=== PATIENT | male | born 1955 | race Caucasian/White ===

== ENCOUNTER 2020-02-11 12:55 | Outpatient (CLI) | payer BC, SELFPAY ==
[2020-02-11 13:08] LABS: Hematocrit 44.3 % (40.0-54.0); Hemoglobin 14.8 g/dL (14.0-18.0); Mean Corpuscular HGB Conc 33.4 g/dL (32.0-36.0); Mean Corpuscular Hemoglobin 32.2 pg (27.0-31.0); Mean Corpuscular Volume 96.5 fL (78.0-102.0); Mean Platelet Volume 10.5 fl (8.7-11.0); Platelet Count Result 215 K/mm3 (150-420); Red Blood Count 4.59 M/mm3 (4.70-6.10); Red Cell Distribution Width 13.5 % (11.6-14.4); White Blood Count 9.6 K/mm3 (4.8-10.8)
[2020-02-11 13:47] LABS: Alanine Aminotransferase 23 U/L (16-63); Albumin Level 3.8 g/dL (3.4-5.0); Alkaline Phosphatase 102 U/L (46-116); Anion Gap 6 mmol/L (8-16); Aspartate Amino Transferase 25 U/L (15-37); Bilirubin,Total 0.4 mg/dL (0.00-1.00); Blood Urea Nitrogen 19 mg/dL (7-18); Calcium 9.1 mg/dL (8.5-10.1); Carbon Dioxide 30 mmol/L (21-32); Chloride 103 mmol/L (98-108); Cholesterol 166 mg/dL (0-200); Estimated Glomerular Filt Rate > 60; Glucose 105 mg/dL (70-99); HDL Direct 62 mg/dL (40-60); LDL Cholesterol Calculated 89 mg/dL (<130); Osmolality Calculated 290 mOsm/kg (285-295); Potassium 3.8 mmol/L (3.5-5.1); Sodium 139 mmol/L (136-145); Total Protein 6.6 g/dL (6.4-8.2); Triglycerides 73 mg/dL (0-150)
== END 2020-02-11 12:56 | disposition home or self-care (01) ==
PROVIDERS: PCP Family Medicine; Visit Provider Family Medicine
DX: I10 Essential (primary) hypertension (principal)
CPT/HCPCS: 36415; 80053; 80061; 85027

== ENCOUNTER 2020-03-07 01:00 | Outpatient (CLI) | payer BC, SELFPAY ==
[2020-03-07 18:13] LABS: SARS-CoV-2 RNA PCR Negative
== END 2020-03-07 01:01 | disposition home or self-care (01) ==
LOC: ANHCOVIDDT 01:01
PROVIDERS: PCP Family Medicine; Visit Provider Surgery
DX: Z01.812 Encounter for preprocedural laboratory examination (principal); Z20.828 Contact with and (suspected) exposure to other viral communicable diseases
CPT/HCPCS: 87635; C9803; U0003

== ENCOUNTER 2020-03-10 01:29 | Day surgery (SDC) | payer BC, SELFPAY ==
[2020-02-27 15:09] VITALS: BMI 23.7
[2020-03-10] MEDS: LACTATED RINGERS 1,000 ML 150 ML IV CONT (09:31)
[2020-03-10 09:34] VITALS: BP 141/67; PULSE 84; RESP 20; TEMP 36.5; O2SAT 97; BMI 24.3
--- NOTE | 2020-03-10 09:52 | WPDANESEPPF ---
Anes - Initial Pre Proc Eval Procedure: Operation Date: 03/10/20 10:30 Proposed Procedures p Screening Colonoscopy - Curly Maravilla DO Date/Time: 03/10/20 09:52 Surgeon: Curly Maravilla DO Pre Op Diagnosis: Neoplasm Screening Patient Data Age: 64 Gender: M Height: 1.78 m Weight: 76.7 kg Last Vital Signs Temp 36.5 C 03/10/20 09:34 Pulse 84 03/10/20 09:34 Resp 20 03/10/20 09:34 BP 141/67 H 03/10/20 09:34 Pulse Ox 97 03/10/20 09:34 Allergies Allergy/AdvReac Type Severity Reaction Status Date / Time No Known Allergies Allergy Verified 03/10/20 09:29 Home Medications Medication Instructions Recorded Confirmed Type sertraline 100 mg tablet 100 mg PO DAILY 07/30/19 02/27/20 History sertraline 50 mg tablet 50 mg PO DAILY 07/30/19 02/27/20 History metoprolol tartrate 50 mg tablet 50 mg PO Q12H #180 tablet 01/02/20 02/27/20 Rx ipratropium 0.5 mg-albuterol 3 mg See Rx Instructions .ROUTE 01/07/20 03/10/20 Rx (2.5 mg base)/3 mL nebulization .COMPLEX #180 ml soln nicotine 21 mg/24 hr daily 1 patch TRANSDERM DAILY #21 each 02/11/20 02/27/20 Rx transdermal patch aspirin [Aspir-81] 81 mg PO DAILY 02/27/20 02/27/20 History fluticasone furoate-vilanterol 1 inh INHALATION DAILY 02/27/20 02/27/20 History [Breo Ellipta] thiamine mononitrate (vit B1) 100 mg PO DAILY 02/27/20 02/27/20 History Patient hx anesthesia problems: none Family hx anesthesia problems: none PMFSH Past Medical History Medical History Cataracts, both eyes Colon polyp COPD (chronic obstructive pulmonary disease) Erectile dysfunction SAUL (generalized anxiety disorder) Hypertension Tobacco abuse Surgical History Surgical History History of appendectomy Social History Social History Smoking packs per day: 1 Smoking cigarettes per day: 20.0 Years smoked: 40 Smoking pack-years: 40.00 Smoking status: Current every day smoker Tobacco type: cigarettes Alcohol intake: former Additional living arrangements comments: . 4 Adult Children. Anes - Eval Final PreProcedure Day of Procedure 03/10/20 09:52 Patient weight: normal Heart: regular rate and rhythm Lungs: clear to auscultation and normal air movement Airway: Mallampati scale class II Neurological: alert and oriented Last oral intake: >/= 8 hours ASA classification: III Emergent: no Anesthetic plan: proceed Anesthesia type and monitoring: general GIVS Informed Consent: The patient's anesthetic plan and its attendant risks and benefits were discussed with the patient/family/POA. Questions were solicited and answers provided to the satisfaction of the patient/family/POA.
--- NOTE | 2020-03-10 10:53 | PM.IMHP ---
H&P: HPI History of Present Illness Date/Time: 03/10/20 10:53 Chief complaint: Neoplasm Screening Narrative: Cleve Blas is a 64 year old male who presents for colonoscopy. Last done 3 years ago and polyp removed. Denies hematochezia or melena. Mother did have colon cancer. Review of Systems Review of Systems: All systems reviewed & are unremarkable except as noted in HPI and below Constitutional: Constitutional: Denies chills, Denies fever(s), Denies headache(s) and Denies weight loss Eyes: Eyes: Denies change in vision ENT: Denies dizziness, Denies headache(s), Denies neck mass and Denies throat swelling Cardiovascular: Cardiovascular: Denies chest pain, Denies lightheadedness and Denies dyspnea Respiratory: Respiratory: Denies cough, Denies dyspnea and Denies wheezing Gastrointestinal: Gastrointestinal: Denies abdominal pain, Denies change in bowel habits, Denies nausea and Denies vomiting Genitourinary: Genitourinary: Denies hematuria and Denies dysuria Musculoskeletal: Musculoskeletal: Reports as per HPI Integumentary/Breasts: Skin/Breast: Reports as per HPI Neurologic: Denies dizziness and Denies headache(s) Allergic/Immunologic: Allergic/Immunologic: Denies throat swelling and Denies wheezing PMFSH Past Medical History Medical History Cataracts, both eyes Colon polyp COPD (chronic obstructive pulmonary disease) Erectile dysfunction SAUL (generalized anxiety disorder) Hypertension Tobacco abuse Surgical History Surgical History History of appendectomy Social History Social History Smoking packs per day: 1 Smoking cigarettes per day: 20.0 Years smoked: 40 Smoking pack-years: 40.00 Smoking status: Current every day smoker Tobacco type: cigarettes Alcohol intake: former Additional living arrangements comments: . 4 Adult Children. Meds Home Medications and Allergies Home Medications Medication Instructions Recorded Confirmed Type sertraline 100 mg tablet 100 mg PO DAILY 07/30/19 02/27/20 History sertraline 50 mg tablet 50 mg PO DAILY 07/30/19 02/27/20 History metoprolol tartrate 50 mg tablet 50 mg PO Q12H #180 tablet 01/02/20 02/27/20 Rx ipratropium 0.5 mg-albuterol 3 mg See Rx Instructions .ROUTE 01/07/20 03/10/20 Rx (2.5 mg base)/3 mL nebulization .COMPLEX #180 ml soln nicotine 21 mg/24 hr daily 1 patch TRANSDERM DAILY #21 each 02/11/20 02/27/20 Rx transdermal patch aspirin [Aspir-81] 81 mg PO DAILY 02/27/20 02/27/20 History fluticasone furoate-vilanterol 1 inh INHALATION DAILY 02/27/20 02/27/20 History [Breo Ellipta] thiamine mononitrate (vit B1) 100 mg PO DAILY 02/27/20 02/27/20 History Allergies Allergy/AdvReac Type Severity Reaction Status Date / Time No Known Allergies Allergy Verified 03/10/20 09:29 Vital Signs Vital Signs - 24 hr 03/10/20 09:34 Temperature 36.5 C Pulse Rate 84 Respiratory Rate 20 Blood Pressure 141/67 H Pulse Oximetry 97 Exam Const: General: no acute distress and alert Orientation/consciousness: patient oriented x3 HENMT: Head: normocephalic and atraumatic Ears: hearing grossly normal bilaterally General nose exam: Normal nares present Mouth: Yes Normal oral and palatal mucosa present Eyes: Periorbital: periorbital findings normal Sclera: sclerae normal EOM: EOMs intact bilaterally Neck: Neck: normal visual inspection, no lymphadenopathy and trachea midline Chest: Chest palpation & inspection: normal inspection of the chest Resp: Effort & Inspection: normal respiratory effort Auscultation: clear to auscultation bilaterally Cardio: Jugular venous distension: no JVD Rate: regular rate Rhythm: regular rhythm Heart sounds: S1 normal heart sound present and S2 normal heart sound present Peripheral pulses: Peripheral pulses
[2020-03-10 11:24] VITALS: BP 113/68; PULSE 69; RESP 18; O2SAT 100
[2020-03-10 11:34] VITALS: BP 106/65; PULSE 63; RESP 18; O2SAT 100
[2020-03-10 11:42] VITALS: BP 118/69; PULSE 57; RESP 18; O2SAT 100
== END 2020-03-10 11:50 | disposition home or self-care (01) ==
PROVIDERS: PCP Family Medicine; Visit Provider Surgery
PROC: 0DJD8ZZ Inspection of Lower Intestinal Tract, Via Natural or Artificial Opening Endoscopic (ICD-10-PCS; CPT 45378; principal; 2020-03-10 10:30)
DX: Z12.11 Encounter for screening for malignant neoplasm of colon (principal); K63.5 Polyp of colon; D12.3 Benign neoplasm of transverse colon; D12.5 Benign neoplasm of sigmoid colon; Z80.0 Family history of malignant neoplasm of digestive organs; I10 Essential (primary) hypertension; J44.9 Chronic obstructive pulmonary disease, unspecified; F41.1 Generalized anxiety disorder; F17.210 Nicotine dependence, cigarettes, uncomplicated; Z79.82 Long term (current) use of aspirin; Z79.899 Other long term (current) drug therapy
CPT/HCPCS: 45385; 88305; J2704; J7120

== ENCOUNTER 2020-05-06 08:01 | Outpatient (RCR) | payer BC, SELFPAY ==
--- NOTE | 2020-05-06 08:57 | PTOPEVAL ---
Thank you for referring Cleve Blas to [facility].? The patient is scheduled to be seen for therapy? ____x/week for ___ weeks. Please review, sign, date and return this plan of care TED. I agree with and certify that the following plan of care is medically necessary. Referring Physician Date Admitting Provider: Attending Provider: Raya Horowitz NP Referring Provider: CAIO Outpatient Evaluation Start: 05/06/20 08:05 Freq: Status: Active Protocol: Document 05/06/20 08:05 Caitlyn (Rec: 05/06/20 08:56 [facility] [email or web address]) Therapy Assessment Status Assessment Status Assessment Status Evaluation Outpatient Past Medical History Neurological History Hx Neurological Disorders No Significant History Cardiovascular History Hx Hypertension Yes Respiratory History Hx Bronchitis Yes Hx Chronic Obstructive Pulmonary Disease Yes (COPD) Hx Pneumonia Yes Gastrointestinal History Hx Appendectomy Yes Hx Polyps Yes Genitourinary History Hx Genitourinary Disorders No Significant History Musculoskeletal History Hx Fractures Yes: R-ELBOW Hx Orthopedic Surgery Yes: R-ELBOW REMOVED RADIAL HEAD- 1-SCREW Hematological History Hx Hematological Disorders No Significant History Endocrine History Hx Endocrine Disorders No Significant History HEENT History Hx Cataracts Yes: SURGERY SCHED 03/11/2020 Hx Dental Problems Yes: UPPER FULL DENTURE, PARTIAL LOWER Integumentary History Hx Skin Disorders No Significant History Reproductive History Hx Reproductive Disorders No Significant History Psychosocial History Hx Psychiatric Disorders No Significant History Pain History History of Any Previous or Ongoing No Significant History Instance of Pain Anesthesia History Hx Anesthesia Reactions No Significant History Other History Hx Implanted Device Yes: 1-SCREW RIGHT ELBOW Evaluation Information Problem Diagnosis L hip pain Onset 04/29/20 Additional Evaluation Detail LEFS = 57% functionally declined Subjective Information patient reports he is having Query Text:As Reported By Patient/ pain in the L hip. he reports Family he has been having pain in the hip for a few weeks. he reports he was just at his doctors office yesterday. he reports he was prescirbed some new meds - he reports he has had some relief of his cindi
== END 2020-05-19 13:47 | disposition home or self-care (01) ==
LOC: CHSPT 08:01
PROVIDERS: PCP Family Medicine; Visit Provider Nurse Practitioner Family
DX: M25.552 Pain in left hip (principal)
CPT/HCPCS: 97014; 97110; 97140; 97161; G0283

== ENCOUNTER 2020-12-22 08:14 | Outpatient (RCR) | payer BC, SELFPAY ==
--- NOTE | 2020-12-22 08:46 | PTOPEVAL ---
Thank you for referring Cleve Blas to [facility].? The patient is scheduled to be seen for therapy? __3__x/week for 12 visits. Please review, sign, date and return this plan of care TED. I agree with and certify that the following plan of care is medically necessary. Referring Physician Date Admitting Provider: Attending Provider: Rodney Schmitt DO Referring Provider: *PT Outpatient Evaluation Start: 12/22/20 08:19 Freq: Status: Active Protocol: Document 12/22/20 08:20 KOFI (Rec: 12/22/20 08:46 [facility] [id number]) Therapy Assessment Status Assessment Status Assessment Status Evaluation Outpatient Past Medical History Neurological History Hx Neurological Disorders No Significant History Cardiovascular History Hx Hypertension Yes Respiratory History Hx Bronchitis Yes Hx Chronic Obstructive Pulmonary Disease Yes (COPD) Hx Pneumonia Yes Gastrointestinal History Hx Appendectomy Yes Hx Polyps Yes Genitourinary History Hx Genitourinary Disorders No Significant History Musculoskeletal History Hx Fractures Yes: R-ELBOW Hx Orthopedic Surgery Yes: R-ELBOW REMOVED RADIAL HEAD- 1-SCREW Hematological History Hx Hematological Disorders No Significant History Endocrine History Hx Endocrine Disorders No Significant History HEENT History Hx Cataracts Yes: SURGERY SCHED 03/11/2020 Hx Dental Problems Yes: UPPER FULL DENTURE, PARTIAL LOWER Integumentary History Hx Skin Disorders No Significant History Reproductive History Hx Reproductive Disorders No Significant History Psychosocial History Hx Psychiatric Disorders No Significant History Pain History History of Any Previous or Ongoing No Significant History Instance of Pain Anesthesia History Hx Anesthesia Reactions No Significant History Other History Hx Implanted Device Yes: 1-SCREW RIGHT ELBOW Evaluation Information Problem Diagnosis left hip pain Onset 12/12/20 Subjective Information Pt. reports that he developed Query Text:As Reported By Patient/ left hip pain about 1 week ago Family . He reports that he got out of bed and just noted worsening pain. He reports that all pain is on the left side and he cannot sit on the left side. He states that pain has gotten worse over the past week. He reports no
--- NOTE | 2021-01-15 08:07 | PTOPEVAL ---
Thank you for referring Cleve Blas to [facility].? The patient is scheduled to be seen for therapy? ____x/week for ___ weeks. Please review, sign, date and return this plan of care TED. I agree with and certify that the following plan of care is medically necessary. Referring Physician Date Admitting Provider: Attending Provider: Rodney Schmitt DO Referring Provider: *PT Outpatient Evaluation Start: 12/22/20 08:19 Freq: Status: Active Protocol: Document 01/15/21 06:54 ACR (Rec: 01/15/21 08:06 ACR [id number]) Therapy Assessment Status Assessment Status Assessment Status Discharge Outpatient Past Medical History Neurological History Hx Neurological Disorders No Significant History Cardiovascular History Hx Hypertension Yes Respiratory History Hx Bronchitis Yes Hx Chronic Obstructive Pulmonary Disease Yes (COPD) Hx Pneumonia Yes Gastrointestinal History Hx Appendectomy Yes Hx Polyps Yes Genitourinary History Hx Genitourinary Disorders No Significant History Musculoskeletal History Hx Fractures Yes: R-ELBOW Hx Orthopedic Surgery Yes: R-ELBOW REMOVED RADIAL HEAD- 1-SCREW Hematological History Hx Hematological Disorders No Significant History Endocrine History Hx Endocrine Disorders No Significant History HEENT History Hx Cataracts Yes: SURGERY SCHED 03/11/2020 Hx Dental Problems Yes: UPPER FULL DENTURE, PARTIAL LOWER Integumentary History Hx Skin Disorders No Significant History Reproductive History Hx Reproductive Disorders No Significant History Psychosocial History Hx Psychiatric Disorders No Significant History Pain History History of Any Previous or Ongoing No Significant History Instance of Pain Anesthesia History Hx Anesthesia Reactions No Significant History Other History Hx Implanted Device Yes: 1-SCREW RIGHT ELBOW Evaluation Information Problem Diagnosis L hip pain Onset 12/12/20 Subjective Information Patient reports that the Query Text:As Reported By Patient/ traction has really been Family helping him. 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 He isn't sure when he will be going back, but will be going back soon. Dot
--- NOTE | 2021-03-02 06:40 | PCPTNOTE ---
Mr. Blas attended a total of 14 treatment sessions from 12/22/20 to 01/26/21. He has failed to return to the clinic since his last Rx and will be discharged from our care. Please refer to the pt. last Rx note for discharge status. Vincent Douglas, MPT
== END 2021-01-26 09:40 | disposition home or self-care (01) ==
LOC: CHSPT 08:14
PROVIDERS: PCP Family Medicine; Visit Provider Family Medicine
DX: M25.552 Pain in left hip (principal)
CPT/HCPCS: 97012; 97014; 97110; 97140; 97161; G0283

== ENCOUNTER 2021-05-14 02:06 | Emergency (ER) | payer BC, SELFPAY ==
--- NOTE | ~2021-05-14 | CT_ITS ---
EXAMINATION: CTA chest PE protocol DATE: 05/14/2021 06:24 CONSULTING GROUP ANALYST INDICATION: Elevated d-dimer. Shortness of breath. COPD. TECHNIQUE: Computed tomographic angiography (CTA) of the chest was performed with 100 mL Omnipaque-35 0 intravenous contrast. The dose-length product was 208.86 mGy-cm. Maximum intensity projection 3D-re constructions of the aorta and other arteries were constructed by the technologist on a separate work station. Automated exposure control and iterative reconstruction technique were employed. COMPARISON: None. FINDINGS: Study is technically adequate without evidence for pulmonary embolism. No significant pleur al or pericardial effusion. No evidence for aortic aneurysm or dissection. There is severe emphysema. No focal pneumonia. There is a 3.5 cm pleural-based right upper lobe mass, consistent with bronchoge elliot carcinoma. There are additional smaller in pulmonary nodules in the left upper lobe which may re present metastases. No focal lytic or blastic lesions are identified. No acute osseous abnormality. IMPRESSION: 1. Right upper lobe pleural-based mass measuring 3.5 cm, consistent with bronchogenic carcinoma until proven otherwise. Possible metastases in the left upper lobe. Recommend further evaluation with perc utaneous biopsy and/or PET/CT scan. Reviewed, dictated and finalized at location A. ULTING GROUP ANALYST IMPRESSION: 1. Right upper lobe pleural-based mass measuring 3.5 cm, consistent with bronch ogenic carcinoma until proven otherwise. Possible metastases in the left upper lobe. Recommend further evaluation with percutaneous biopsy and/or PET/CT scan.
--- NOTE | ~2021-05-14 | XR_ITS ---
EXAMINATION: XR chest 2V 05/14/2021 02:36 INDICATION: Elevated d-dimer. Covid Infection. PROCEDURE: 2 view chest COMPARISON: 03/04/2018 FINDINGS: The lungs are clear. The cardiomediastinal silhouette is within normal limits. There are no pleural effusions. There is no pneumothorax suspected. The lungs are hyperinflated which is cons istent with, but not diagnostic of chronic obstructive pulmonary disease. IMPRESSION: 1: NO ACUTE CARDIOPULMONARY DISEASE. Reviewed, dictated and finalized at location A. WARE ENGINEER [employer]B [employer]PLICATIONS
--- NOTE | 2021-05-14 02:21 | ECG_ITS ---
Measurements Intervals [place] Rate: 51 P: 83 [place]: 140 QRS: 61 QRSD: 91 T: 70 QT: 417 QTc: 387 Interpretive Statements SINUS BRADYCARDIA CANNOT RULE OUT SEPTAL INFARCT, AGE INDETERMINATE BASELINE ARTIFACT- I, II, III, AVR, AVL, AVF, V3-V6 ABNORMAL ECG Electronically Signed On 05-14-2021 8:57:55 SUPERINTENDENT CAR CONSTRUCTION by Antione Hurtado D.O.
[2021-05-14 02:27] VITALS: BP 133/69; PULSE 56; RESP 21; TEMP 36.1; O2SAT 97
[2021-05-14 03:07] VITALS: RESP 19; O2SAT 98
[2021-05-14] MEDS: IPRATROPIUM 0.5 MG/ALBUTEROL SULFATE 2.5 MG AMPUL.NEB 3 ML INHALATION (03:10)
[2021-05-14] MEDS: methylPREDNISolone SOD SUCC 125 MG VIAL IV PUSH (03:10)
[2021-05-14 03:11] LABS: Base Excess ABG -0.3 mmol/L (0-2); HCO3 ABG 24.3 mmol/L (23-29); Oxygen Content ABG 18.9 %vol (16.0-22.0); Oxygen Saturation ABG 95.2 % (95-97); Oxyhemoglobin 85.9 % (94-100); PCO2 ABG 40.1 mmHg (35-45); PO2 ABG 73.7 mmHg (80-90); Total Hemoglobin 15.6 g/dL (12.0-18.0)
[2021-05-14 03:13] LABS: Basophils Absolute Auto 0.06 K/mm3 (0.00-0.10); Basophils Percent Auto 0.4 % (0.0-1.0); Eosinophils Absolute Auto 0.09 K/mm3 (0.02-0.50); Eosinophils Percent Auto 0.7 % (1.0-6.0); Hematocrit 46.7 % (40.0-54.0); Hemoglobin 15.4 g/dL (14.0-18.0); Immature Granulocyte Absolute 0.07 K/mm3 (0.00-0.00); Immature Granulocyte Percent A 0.5 % (0.0-0.0); Lymphocytes Absolute Auto 1.42 K/mm3 (1.10-4.50); Lymphocytes Percent Auto 10.6 % (18.0-42.0); Mean Corpuscular Hemoglobin 31.5 pg (27.0-31.0); Mean Corpuscular Volume 95.5 fL (78.0-102.0); Mean Platelet Volume 10.1 fl (8.7-11.0); Monocytes Absolute Auto 0.84 K/mm3 (0.10-0.90); Monocytes Percent Auto 6.3 % (2.0-11.0); Neutrophils Absolute Auto 10.9 K/mm3 (1.7-7.2); Neutrophils Percent Auto 81.5 % (50.0-70.0); Platelet Count Result 265 K/mm3 (150-420); Red Blood Count 4.89 M/mm3 (4.70-6.10); Red Cell Distribution Width 12.9 % (11.6-14.4); White Blood Count 13.4 K/mm3 (4.8-10.8)
[2021-05-14 03:23] LABS: Device ROOM AIR; Modified Allen's Test Pass; Site Drawn RIGHT RADIAL
[2021-05-14 03:28] VITALS: PULSE 56; RESP 18; O2SAT 96
[2021-05-14 03:37] LABS: D Dimer 0.89 mg/L (0.19-0.50)
[2021-05-14 03:39] LABS: Alanine Aminotransferase 23 U/L (16-63); Albumin Level 3.4 g/dL (3.4-5.0); Alkaline Phosphatase 130 U/L (46-116); Anion Gap 7 mmol/L (8-16); Aspartate Amino Transferase 15 U/L (15-37); Bilirubin,Total 0.5 mg/dL (0.00-1.00); Blood Urea Nitrogen 18 mg/dL (7-18); Carbon Dioxide 32 mmol/L (21-32); Chloride 95 mmol/L (98-108); Estimated CRCL calculation 61 ml/min; Estimated Glomerular Filt Rate > 60; Glucose 114 mg/dL (70-99); NT Pro B Type Natriuretic Pept 178 pg/mL (0-125); Osmolality Calculated 280 mOsm/kg (285-295); Potassium 4.6 mmol/L (3.5-5.1); Sodium 134 mmol/L (136-145); Total Protein 6.9 g/dL (6.4-8.2); Troponin I 6.6 ng/L (0.00-60.4)
[2021-05-14 03:59] LABS: Influenza A QL RT-PCR Negative (Negative); Influenza B QL RT-PCR Negative (Negative); SARS-CoV-2 RNA PCR Negative (Negative)
--- NOTE | 2021-05-14 04:52 | ED.SOB ---
HPI - SOB/Dyspnea General Chief Complaint: Shortness of Breath/Dyspnea Stated Complaint: sob Source: patient and family Mode of arrival: ambulatory History of Present Illness HPI Narrative: this is 65-year-old male presents with increased shortness of breath with audible wheezes has a history of COPD and a long-time smoker history of hypertension, cough is nonproductive with no fever chills no chest pain no abdominal pain no nausea vomiting. MD elicited complaint: shortness of breath Pertinent past history: COPD Onset (ago): hour(s) Related Data Home Medications Medication Instructions Recorded Confirmed sertraline 100 mg tablet 100 mg PO DAILY 07/30/19 05/14/21 sertraline 50 mg tablet 50 mg PO DAILY 07/30/19 05/14/21 aspirin [Aspir-81] 81 mg PO DAILY 02/27/20 05/14/21 Allergies Allergy/AdvReac Type Severity Reaction Status Date / Time No Known Allergies Allergy Verified 05/14/21 02:23 Review of Systems Review of Systems: All systems reviewed & are unremarkable except as noted in HPI and below PMFSH Past Medical History Medical History Cataracts, both eyes Colon polyp COPD (chronic obstructive pulmonary disease) Erectile dysfunction SAUL (generalized anxiety disorder) Hx of colonic polyp Hypertension Tobacco abuse Surgical History Surgical History History of appendectomy Social History Social History Smoking packs per day: 1 Smoking cigarettes per day: 20.0 Years smoked: 40 Smoking pack-years: 40.00 Smoking status: Current every day smoker Tobacco type: cigarettes Alcohol intake: former Alcohol use details: History of Alcoholism. Quit drinking 2017. Suicide attempt 2017. Additional living arrangements comments: . 4 Adult Children. Exam Const: General: no acute distress and alert Orientation/consciousness: patient oriented x3 HENMT: Head: normal to inspection Eyes: Conjunctivae: conjunctivae normal Pupils: Equal, round and reactive pupils present EOM: EOMs intact bilaterally Neck: Neck: normal visual inspection and no lymphadenopathy Chest: Chest palpation & inspection: normal inspection of the chest Resp: Effort & Inspection: normal respiratory effort Auscultation: wheezes and diminished lung sounds Cardio: Rate: regular rate and bradycardic Rhythm: regular rhythm GI: GI Palp: Yes Soft to palpation Percussion: Yes normal to percussion : Testes: Testes normal Skin: General skin exam: normal color Rashes: no rashes Neuro: General: patient oriented x3 and moves all extremities Extrem: General: normal to inspection and no pedal edema Psych: Mental Status: mental status grossly normal Course Course Emergency Course: Patient received albuterol and Atrovent nebulizer treatment along with IV steroid Solu-Medrol, had an elevated D-dimer and CTA was performed which showed no acute embolism, x-ray reviewed along with blood work reviewed with patient and family. Vital Signs Vital signs: Vital Signs Temperature 36.1 C L 05/14/21 02:27 Pulse Rate 56 L 05/14/21 02:27 Respiratory Rate 21 H 05/14/21 02:27 Blood Pressure 133/69 05/14/21 02:27 Pulse Oximetry 97 05/14/21 02:27 Temperature 36.1 C L 05/14/21 02:27 Pulse Rate 56 L 05/14/21 03:28 Respiratory Rate 18 05/14/21 03:28 Blood Pressure 133/69 05/14/21 02:27 Pulse Oximetry 96 05/14/21 03:28 MDM - SOB/Dyspnea Lab Data Result diagrams: 05/14/21 03:09 05/14/21 03:09 Labs: Lab Results 05/14/21 05/14/21 05/14/21 Range/Units 03:09 03:09 03:09 WBC 13.4 H (4.8-10.8) K/mm3 RBC 4.89 (4.70-6.10) M/mm3 Hgb 15.4 (14.0-18.0) g/dL Hct 46.7 (40.0-54.0) % MCV 95.5 (78.0-102.0) fL MCH 31.5 H (27.0-31.0) pg MCHC 33.0 (32.0-36.0) g/dL RDW
[2021-05-14 04:56] VITALS: BP 132/75; PULSE 56; RESP 17; O2SAT 100
== END 2021-05-14 05:04 | disposition home or self-care (01) ==
PROVIDERS: Emergency Provider Emergency Medicine; PCP Family Medicine
DX: J44.1 Chronic obstructive pulmonary disease with (acute) exacerbation (principal); Z20.822 Contact with and (suspected) exposure to COVID-19
CPT/HCPCS: 36415; 36600; 71046; 71275; 80053; 82805; 83880; 84484; 85025; 85380; 87502; 93005; 94640; 96374; 99283; 99284; C9803; J2930; Q9967; U0003; U0005

== ENCOUNTER 2021-05-31 12:47 | Outpatient (CLI) | payer BC, SELFPAY ==
--- NOTE | ~2021-05-31 | CT_ITS ---
EXAMINATION: CTA chest PE protocol DATE: 05/31/2021 13:54 MARKETING PROJECT SPECIALIST INDICATION: Shortness of breath and chest pain TECHNIQUE: Computed tomographic angiography (CTA) of the chest was performed with 100 mL Omnipaque-35 0 intravenous contrast. The dose-length product was 252.36 mGy-cm. Maximum intensity projection 3D-re constructions of the aorta and other arteries were constructed by the technologist on a separate work station. COMPARISON: CTA chest dated 05/14/2021. FINDINGS: Study is technically adequate without evidence for pulmonary embolism. There is normal cont rast opacification the pulmonary arteries. No evidence for aortic aneurysm or dissection. Heart size is normal. No significant pleural or pericardial effusion. There is a right upper lobe mass measuring 3.8 x 3.2 x 2.4 cm abutting the pleural surface posterior medially. There are small irregular shaped nodules in the left upper lobe, possibly metastases. There is emphysema. No endobronchial lesions. N o significant pleural or pericardial effusion. No pneumothorax. The upper abdomen is unremarkable. IMPRESSION: 1. Enlarging right upper lobe mass measuring 3.8 x 3.2 x 2.4 cm, compatible with bronchogenic carcino ma until proven otherwise. Possible metastases to the left upper lobe. Recommend correlation with pet /CT scan or percutaneous biopsy. 2: No evidence for pulmonary embolism. Reviewed, dictated and finalized at location B. ETING PROJECT SPECIALIST IMPRESSION: 1. Enlarging right upper lobe mass measuring 3.8 x 3.2 x 2.4 cm, compatible wit h bronchogenic carcinoma until proven otherwise. Possible metastases to the lef t upper lobe. Recommend correlation with pet/CT scan or percutaneous biopsy. 2: No evidence for pulmonary embolism.
--- NOTE | 2021-05-31 12:51 | ECG_ITS ---
Measurements Intervals [place] Rate: 99 P: 86 [place]: 124 QRS: 85 QRSD: 84 T: 89 QT: 311 QTc: 400 Interpretive Statements SINUS RHYTHM ATRIAL PREMATURE COMPLEXES POSSIBLE RIGHT ATRIAL ENLARGEMENT ANTEROSEPTAL INFARCT, AGE INDETERMINATE BORDERLINE T WAVE ABNORMALITY- HIGH LATERAL LEADS ABNORMAL ECG Electronically Signed On 05-31-2021 13:30:11 BRAZER [employer]ISTANCE by Antione Hurtado D.O.
[2021-05-31 13:04] LABS: Hematocrit 47.2 % (40.0-54.0); Hemoglobin 15.3 g/dL (14.0-18.0); Mean Corpuscular HGB Conc 32.4 g/dL (32.0-36.0); Mean Corpuscular Hemoglobin 31.2 pg (27.0-31.0); Mean Corpuscular Volume 96.3 fL (78.0-102.0); Mean Platelet Volume 9.8 fl (8.7-11.0); Platelet Count Result 239 K/mm3 (150-420); Red Cell Distribution Width 14.4 % (11.6-14.4)
[2021-05-31 13:27] LABS: Alanine Aminotransferase 23 U/L (16-63); Albumin Level 3.7 g/dL (3.4-5.0); Alkaline Phosphatase 129 U/L (46-116); Anion Gap 10 mmol/L (8-16); Aspartate Amino Transferase < 10 U/L (15-37); Bilirubin,Total 0.4 mg/dL (0.00-1.00); Blood Urea Nitrogen 15 mg/dL (7-18); Calcium 9.6 mg/dL (8.5-10.1); Carbon Dioxide 33 mmol/L (21-32); Chloride 100 mmol/L (98-108); Estimated Glomerular Filt Rate 56; Glucose 98 mg/dL (70-99); NT Pro B Type Natriuretic Pept 47 pg/mL (0-125); Osmolality Calculated 296 mOsm/kg (285-295); Potassium 4.4 mmol/L (3.5-5.1); Sodium 143 mmol/L (136-145); Total Protein 7.6 g/dL (6.4-8.2); Troponin I 6.4 ng/L (0.00-60.4)
== END 2021-05-31 12:48 | disposition home or self-care (01) ==
LOC: CHSLAB 12:51
PROVIDERS: PCP Family Medicine; Visit Provider Family Medicine
DX: R06.02 Shortness of breath (principal)
CPT/HCPCS: 36415; 71275; 80053; 83880; 84484; 85027; 93005; Q9967

== ENCOUNTER 2021-06-11 11:52 | Outpatient (CLI) | payer BC, SELFPAY ==
[2021-06-11 12:18] LABS: Prothrombin Time 10.7 Seconds (9.50-12.10)
== END 2021-06-11 11:53 | disposition home or self-care (01) ==
LOC: CHSLAB 11:55
PROVIDERS: PCP Family Medicine; Visit Provider Internal Medicine Pulmonary Disease
DX: R91.8 Other nonspecific abnormal finding of lung field (principal)
CPT/HCPCS: 36415; 85610

== ENCOUNTER 2021-06-21 11:19 | Outpatient (RCR) | payer BC, SELFPAY | END 2021-07-21 23:59 | disposition home or self-care (01) | LOC: CHSWOUND 11:19 | PROVIDERS: PCP Family Medicine | DX: L02.31 Cutaneous abscess of buttock (principal); J44.9 Chronic obstructive pulmonary disease, unspecified; F17.210 Nicotine dependence, cigarettes, uncomplicated | CPT/HCPCS: 99212; G0463 ==

== ENCOUNTER 2021-06-23 08:56 | Emergency (ER) | payer BC, SELFPAY ==
[2021-06-23 09:19] VITALS: BP 112/76; PULSE 141; RESP 20; TEMP 36.5; O2SAT 100
[2021-06-23 13:53] VITALS: BP 138/75; PULSE 121; RESP 18; O2SAT 98
[2021-06-23] MEDS: HYDROcodone/acetaminophen (*CRX) 5-325 MG TABLET 1 TAB PO (14:31)
[2021-06-23 14:51] LABS: Basophils Absolute Auto 0.1 K/mm3 (0.0-0.1); Basophils Percent Auto 0.4 % (0.2-1.2); Eosinophils Absolute Auto 0.1 K/mm3 (0-0.3); Eosinophils Percent Auto 0.5 % (0-4.4); Hematocrit 42.2 % (42.0-52.0); Hemoglobin 13.8 g/dL (14.0-18.0); Immature Granulocyte Absolute 0.06 K/mm3 (0.00-0.031); Immature Granulocyte Percent A 0.4 % (0-0.5); Lymphocytes Absolute Auto 1.06 K/mm3 (0.9-3.2); Lymphocytes Percent Auto 7.7 % (18.3-44.2); Mean Corpuscular HGB Conc 32.7 g/dl (32-36); Mean Corpuscular Volume 94.8 fl (80-100); Mean Platelet Volume 10.1 fl (7.4-10.4); Monocytes Percent Auto 7.6 % (2.6-8.5); Neutrophils Absolute Auto 11.5 K/mm3 (1.3-6.7); Neutrophils Percent Auto 83.4 % (45.5-73.1); Platelet Count Result 203 k/mm3 (150-375); Red Blood Count 4.45 M/mm3 (4.6-6.20); Red Cell Distribution Width 14.5 % (11.5-14.5); White Blood Count 13.8 K/mm3 (4.5-10.0)
[2021-06-23 15:05] LABS: Alanine Aminotransferase 16 U/L (4-50); Alkaline Phosphatase 107 U/L (38-126); Anion Gap 8 mmol/L (8-16); Aspartate Amino Transferase 23 U/L (17-59); Bilirubin,Total 0.5 mg/dL (0.2-1.3); Blood Urea Nitrogen 13 mg/dL (9-20); Calcium 9.5 mg/dL (8.4-10.2); Carbon Dioxide 28 mmol/L (22-30); Chloride 93 mmol/L (98-107); Estimated CRCL calculation 71 ml/min; Estimated Glomerular Filt Rate > 60; Glucose 111 mg/dL (65-110); Potassium 4.2 mmol/L (3.4-5.0); Sodium 129 mmol/L (137-145)
--- NOTE | 2021-06-23 16:26 | ED.GENADULT ---
HPI - General Adult General Chief complaint: Wound/Laceration Stated complaint: abscess on buttock Time Seen by Provider: 06/23/21 14:01 Source: patient and family Mode of arrival: ambulatory Limitations: no limitations History of Present Illness HPI narrative: 65-year-old with a history of COPD, lung CA she is scheduled for PET scan sometime next week here with complaints of pain and swelling in the rectal area for past few days. Patient states he saw his primary doctor and was started on Keflex and Bactrim and does report to surgeon. Patient states that he cannot take the pain any longer wants something done. She denies any fever or chills. No history of nausea or vomiting. Onset (ago): week(s) (1) Location: buttocks Radiation: non-radiation Severity: moderate Quality: aching Pain Consistency: constant Relieving factors: none Exacerbating factors: none Associated symptoms: denies other symptoms Related Data Home Medications Medication Instructions Recorded Confirmed aspirin [Aspir-81] 81 mg PO DAILY 02/27/20 06/22/21 fluticasone furoate 200 1 inh INHALATION DAILY 05/25/21 06/22/21 mcg-vilanterol 25 mcg/dose inhalation powder Allergies Allergy/AdvReac Type Severity Reaction Status Date / Time No Known Allergies Allergy Verified 06/22/21 13:20 Review of Systems Review of Systems: All systems reviewed & are unremarkable except as noted in HPI and below Constitutional: Constitutional: Reports no additional constitutional complaints Eyes: Eyes: Reports no additional eye complaints Cardiovascular: Cardiovascular: Reports no additional cardiovascular complaints Respiratory: Respiratory: Reports no additional respiratory complaints Gastrointestinal: Gastrointestinal: Reports no additional gastrointestinal complaints Genitourinary: Genitourinary: Reports no additional male genitourinary complaints Musculoskeletal: Musculoskeletal: Reports as per HPI Integumentary/Breasts: Skin/Breast: Reports as per HPI Neurologic: Reports system reviewed and no additional complaints, except as documented Psychiatric: Psychiatric: Reports no additional psychiatric complaints [facility] Past Medical History Medical History Cataracts, both eyes Colon polyp COPD (chronic obstructive pulmonary disease) Erectile dysfunction SAUL (generalized anxiety disorder) Hx of colonic polyp Hypertension Tobacco abuse Surgical History Surgical History History of appendectomy Social History Social History Smoking packs per day: 1 Smoking cigarettes per day: 20.0 Years smoked: 50 Smoking pack-years: 50.00 Smoking status: Current every day smoker Tobacco type: cigarettes Alcohol intake: never Alcohol use details: History of Alcoholism. Quit drinking 2017. Suicide attempt 2017. Substance use: never Substance use type: does not use Additional living arrangements comments: . 4 Adult Children. Spiritual care concerns: No Exam Narrative: GENERAL: Well-appearing, thin, and in no acute distress. HEAD: Normocephalic, atraumatic. EYES: PERRLA and EOMI. NECK: Supple. CHEST: Clear to auscultation. No respiratory distress. HEART: Regular rate and rhythm. No murmur heard. Normal peripheral pulses. ABDOMEN: Soft, nontender, nondistended, normal active bowel sounds. 4 cm swelling noted on the left gluteal area. Warm and tender to touch EXTREMITIES: Normal range of motion. No edema. SKIN: Warm, dry, no rash. NEURO: No focal deficits. Alert and oriented x3. PSYCH: Normal mood and affect. Course Course Emergency Course: Inform patient about his lab work. I&D was done for details look into the procedure note. Advised patient to continue his antibiotic. Follow-up with the surgeon tomorrow as scheduled. Vital Signs Vital signs: Vital Signs
[2021-06-23 16:54] VITALS: BP 152/86; PULSE 88; RESP 17; O2SAT 96
== END 2021-06-23 16:54 | disposition home or self-care (01) ==
PROVIDERS: Emergency Provider Family Medicine; PCP Family Medicine
DX: L02.31 Cutaneous abscess of buttock (principal); J44.9 Chronic obstructive pulmonary disease, unspecified; Z86.010 Personal history of colon polyps; H26.9 Unspecified cataract; F17.210 Nicotine dependence, cigarettes, uncomplicated
CPT/HCPCS: 10061; 36415; 46040; 80053; 85025; 99284; A9270

== ENCOUNTER 2021-06-29 09:00 | Outpatient (CLI) | payer BC, SELFPAY ==
[2021-06-22 13:22] VITALS: BMI 22.3
--- NOTE | 2021-06-22 13:32 | PC.NURSE ---
Report to the Outpatient Waiting Room, entrance under the green pavilion located off [facility], at time 0900 on date 06/29/21. OR Time: 1100. - You and your visitor will be asked a series of questions to screen for COVID 19 for your protection. - A mask is required within the hospital. - Only one visitor is allowed at this time. Patient visitors will be guided where to wait when not with patient. Preoperative COVID Testing Requirements: No COVID Test needed if: (proof is required; if not received patient will have Rapid Test prior to entry) - Patient has received COVID Vaccine at least 14 days prior to procedure date or - Patient has positive COVID test result within last 90 days of surgery date. COVID Test needed if above criteria is not met If not COVID vaccinated a COVID test must be conducted within 72 hours of surgery and patient is asked to isolate self from time of testing until procedure. You will go to the [facility] for your COVID testing. The [facility] is located at the corner of [address] [facility]. You will only be called if COVID results are positive and your surgeon may reschedule your elective surgery date. - No food/DRINK AFTER 5AM Take the following medications with a SIP of water the morning of surgery: NONE Medications to discontinue per physician: ASPIRIN Date to take last dose: 06/22/21 Please no make-up, nail iraqi, hairspray, perfume, deodorant, or body powder the day of surgery. No jewelry (including any body piercings) or valuables the day of surgery, leave them at home. Please take a shower or bath the night before, or the morning of, surgery with an antibacterial soap. Wear comfortable, loose fitting clothing. Children are encouraged to wear pajamas. - Jewelry must be removed prior to entering the operating room. Rings and piercings that are not removed may be cut off. - The hospital will not accept responsibility for valuables. - Please leave all valuables, including medications, at home the day of surgery. If you are going home after surgery, a licensed escort vehicle driver must drive you home. - NO public transportation without another adult. - We recommend that an adult stay with you for 24 hours following discharge. - We also recommend that you do not drive, make important decision, drink alcoholic beverages, or take any drugs that were not prescribed by your health care provider for at least 24 hours after your discharge time. Follow any additional instructions given to you from your surgeon. Telephone instructions given to BRANDY MANN and asked if any additional questions and then verbalized understanding. Patient advised to call surgeon office or pre surgery nurse liaison [phone] if any additional questions.
--- NOTE | 2021-06-22 13:34 | PC.NURSE ---
Pt complaint of abscess on buttocks - started antibiotics last week. Has not noticed any improvement and states that it is getting more painful and he is starting to feel sick to his stomach with it. Has appt on with a surgeon, but unsure if he can make it that long. Encouraged pt to be seen in the ER based on symptoms described. Pt verbalizes understanding.
[2021-06-29] VITALS (11 sets, daily range): BP systolic 109–140; BP diastolic 56–74; PULSE 71–103; RESP 16–18; TEMP 36.1; O2SAT 94–100
--- NOTE | ~2021-06-29 | XR_ITS ---
EXAMINATION: XR chest 1V portable DATE: 06/29/2021 12:25 INDICATION: Right lung nodule status post percutaneous biopsy. TECHNIQUE: A single frontal view of the chest was obtained. COMPARISON: Chest single view at 10:54 AM FINDINGS: The lungs are hyperexpanded with lucencies, consistent with emphysema. There is a mass in r ight upper lobe. No pleural effusion or pneumothorax. The heart size is normal. IMPRESSION: 1. Mass in right lung upper lobe, consistent with primary bronchogenic carcinoma. 2. Emphysema. Reviewed, dictated and finalized at location B. NT PROFESSIONAL IMPRESSION: 1. Mass in right lung upper lobe, consistent with primary bronchogenic carcinom a. 2. Emphysema.
--- NOTE | ~2021-06-29 | CT_ITS ---
EXAMINATION: CT biopsy lung w/imaging DATE: 06/29/2021 10:56 INDICATION: Right upper lobe mass TECHNIQUE: The procedure including the risks and benefits was discussed with the patient. Risks discu ssed included infection, approximately 1/20 risk of symptomatic hemorrhage beyond mild hemoptysis, ap proximately 1/3 risk of pneumothorax, and approximately 1/10 risk of pneumothorax severe enough to wa rrant chest tube placement. The patient understood the risks and agreed to proceed. The patient was p laced prone. The skin overlying the right paraspinal upper thorax was prepped and draped in sterile fashion. Anesthetic was administered with 1% lidocaine subcutaneously. A 19 gauge outer needle was advanced under CT guidance to the lesion of interest. A 20 gauge core biopsy needle was then used to obtain 4 core biopsy specimens. The needle was removed and the entry site was cleaned and dressed. T here were no immediate complications. The mAs was manually reduced to limit radiation dose exposure. The dose-length product was 145.04 mGy-cm. FINDINGS: CT images demonstrate the outer needle tip just within a 3.6 x 3.1 cm right upper lobe mass . IMPRESSION: 1. Successful CT-guided biopsy of a 3.6 cm right upper lobe mass. Reviewed, dictated and finalized at location A. HERIZATION DIRECTOR
--- NOTE | ~2021-06-29 | XR_ITS ---
EXAMINATION: XR chest 1V portable DATE: 06/29/2021 14:00 INDICATION: Status post percutaneous lung biopsy TECHNIQUE: frontal view of the chest was obtained. COMPARISON: Chest radiograph dated 06/29/2021 at 12:21 PM FINDINGS: Tiny right apical pneumothorax with maximal pleural separation of 5 mm. Hyperexpansion of lungs with increased lucency and architectural distortion at the upper lung zones consistent with mild emphysema . Right apical mass concerning for primary bronchogenic carcinoma. No pleural effusion. The cardiomed iastinal silhouette is normal. IMPRESSION: 1. Tiny right apical pneumothorax. 2. Emphysema. 3. Right upper lobe mass consistent with primary bronchogenic carcinoma. Reviewed, dictated and finalized at location A. E MAKER
--- NOTE | ~2021-06-29 | XR_ITS ---
EXAMINATION: XR chest 1V DATE: 06/29/2021 10:58 INDICATION: Status post percutaneous right lung biopsy TECHNIQUE: frontal view of the chest was obtained. COMPARISON: Chest radiograph dated 05/14/2021 FINDINGS: Increased lucency and architectural distortion in the upper lung zones consistent with moderate emphy sema better appreciated on prior CT. 3.5 cm right apical nodule concerning for primary bronchogenic c arcinoma. No other airspace opacities, pulmonary edema, pleural effusion or pneumothorax. The cardiom ediastinal silhouette is normal. Moderate osteoarthritis at the bilateral acromioclavicular joints. IMPRESSION: 1. No pneumothorax, pleural effusion or other acute cardiopulmonary disease post percutaneous biopsy of a right apical mass concerning for primary bronchogenic carcinoma. 2. Moderate emphysema. Reviewed, dictated and finalized at location A. MATIC GLUING MACHINE OPERATOR IMPRESSION: 1. No pneumothorax, pleural effusion or other acute cardiopulmonary disease pos t percutaneous biopsy of a right apical mass concerning for primary bronchogeni c carcinoma. 2. Moderate emphysema.
== END 2021-06-29 14:30 | disposition home or self-care (01) ==
PROVIDERS: PCP Family Medicine; Visit Provider Radiology Diagnostic Radiology
PROC: BB24ZZZ Computerized Tomography (CT Scan) of Bilateral Lungs (ICD-10-PCS; CPT 32408; principal; 2021-06-29 11:00)
DX: R91.8 Other nonspecific abnormal finding of lung field (principal); C34.91 Malignant neoplasm of unspecified part of right bronchus or lung
CPT/HCPCS: 32408; 71045; 88305; 88313; 88342

== ENCOUNTER 2021-06-30 09:56 | Outpatient (CLI) | payer BC, SELFPAY ==
[2021-06-30 11:24] LABS: SARS-CoV-2 RNA PCR Negative (Negative)
== END 2021-06-30 09:57 | disposition home or self-care (01) ==
LOC: CHSLAB 09:58
PROVIDERS: PCP Family Medicine; Visit Provider Nurse Practitioner Family
DX: Z20.822 Contact with and (suspected) exposure to COVID-19 (principal)
CPT/HCPCS: C9803; U0003; U0005

== ENCOUNTER 2021-07-09 12:35 | Outpatient (CLI) | payer BC, SELFPAY ==
--- NOTE | 2021-07-09 16:10 | WPDPFTINT ---
PFT Procedure Performed PFT Procedure Performed Spirometry with Pre/Post Bronchodilator Plethysmography (Lung Vol) Flow Vol Loop PFT Interpretation This is a pulmonary function test with pre and post-bronchodilator spirometry, and plethysmography. The test was performed and results interpreted in accordance with the 2019 and 2005 ATS/ERS Task Force guidelines respectively using the Global Lung Function Initiative-2012 reference equations. Patient demonstrated good effort and cooperation. Reproducibility criteria were met. The quality of the pre bronchodilator spirometry maneuver was Grade B and post bronchodilator spirometry maneuver was Grade B. Of note the patient was unable to complete the DLCO. Findings: Spirometry: There is decreased maximal expiratory airflow at all lung volumes with concave expiratory flow tracing. The pre bronchodilator FVC is 2.29 L, 49% predicted. The pre bronchodilator FEV1 is 0.73 L, 20% predicted. The FEV1: FVC ratio is 32%. The post bronchodilator FVC is 2.62 L, representing a 14% increase. The post bronchodilator FEV1 is 0.82 L, representing a 12% increase. The post bronchodilator FEV1: FVC ratio is 31%. plethysmography: The total lung capacity is 9.99 L, 139% predicted. The functional residual capacity is 8.52 L, 226% predicted. The residual volume is 7.70 L, 327% predicted. Impression: There is a very severe obstructive abnormality with significant improvement after inhaling a single dose of albuterol. The increase in residual volume is consistent with air trapping from an obstructive abnormality. Hyperinflation is present is demonstrated by the increase in functional residual capacity and total lung capacity and is consistent with an obstructive abnormality. There are no prior studies for comparison
--- NOTE | 2021-07-09 16:16 | WPDSIXMINUTE ---
Six Minute Walk Procedure Procedure Performed Pulmonary Stress Test (6 min walk) Six Minute Walk This is a 6 minute walk test. The test was performed and interpreted in accordance with the 2014 ERS/ATS task force guidelines. Of note the patient stopped the test at 4 minutes and 30 seconds due to shortness of breath. Findings: The patient's resting room air oxygen saturation measured by pulse oximetry was 96% and heart rate was 79 bpm. Patient ambulated for 213 meters and oxygen saturation remained 92 to 99%. Heart rate at the end of the study was 103 bpm. The patient did not qualify for supplemental oxygen at rest or with ambulation. There are no prior studies for comparison.
== END 2021-07-09 12:36 | disposition home or self-care (01) ==
PROVIDERS: PCP Family Medicine; Visit Provider Internal Medicine Pulmonary Disease
DX: J44.9 Chronic obstructive pulmonary disease, unspecified (principal); R94.2 Abnormal results of pulmonary function studies
CPT/HCPCS: 94060; 94726; 94729

== ENCOUNTER 2021-07-13 08:08 | Outpatient (CLI) | payer BC, SELFPAY ==
--- NOTE | ~2021-07-13 | PE_ITS ---
EXAMINATION: PET skull to mid thigh DATE: 07/13/2021 10:00 INDICATION: Right lung upper lobe adenocarcinoma. TECHNIQUE: Blood glucose level was 109 mg/dL. 8.752 mCi of 18-fluorodeoxyglucose (18-FDG) was adminis tered i.v. Low dose computed tomography (CT) images were acquired from the base of the brain to the p roximal thighs for attenuation correction and anatomic localization. Automated exposure control was e mployed. Dose-length product (DLP) was 367 mGy-cm. Positron emission tomography (PET) images were acq uired in the same distribution. COMPARISON: Chest CT 05/31/2021 FINDINGS: Head/neck: There is increased activity in the oral cavity, major salivary glands, glottis, and some n yudith muscles without abnormal CT correlate, likely physiologic. There are no pathologically enlarged l ymph nodes. Chest: Severe emphysema is noted. There is a 4.0 x 3.2 cm mass in right lung upper lobe with maximum SUV of 10.3. There are 4 mm and 7 mm nodules in left upper lobe without increased activity. No pleura l effusion. The heart size is normal. There are coronary artery calcifications. No pericardial effusi on. There are no pathologically enlarged lymph nodes. There is mild bilateral gynecomastia. Abdomen/pelvis/proximal thighs: The liver, gallbladder, spleen, pancreas, and right adrenal gland are normal. There is a 17 mm mass in left adrenal gland measuring low-attenuation without increased acti vity, consistent with an adenoma. There are no dilated loops of bowel. There are no pathologically en larged lymph nodes. There is no free intraperitoneal fluid. There is no osseous malignancy. IMPRESSION: 1. 4.0 x 3.2 cm mass in right lung upper lobe with increased activity, consistent with primary adenoc arcinoma. 2. Severe emphysema. Reviewed, dictated and finalized at location B. TIVE SPOTTER IMPRESSION: 1. 4.0 x 3.2 cm mass in right lung upper lobe with increased activity, consiste nt with primary adenocarcinoma. 2. Severe emphysema.
[2021-07-13 08:30] LABS: Glucose Point of Care 109 mg/dl (65-105)
== END 2021-07-13 08:09 | disposition home or self-care (01) ==
PROVIDERS: PCP Family Medicine; Visit Provider Internal Medicine Pulmonary Disease
DX: R91.8 Other nonspecific abnormal finding of lung field (principal); J43.9 Emphysema, unspecified
CPT/HCPCS: 78815; A9552

== ENCOUNTER 2021-07-22 15:24 | Outpatient (CLI) | payer BC, SELFPAY ==
--- NOTE | 2021-07-22 15:26 | ECG_ITS ---
Measurements Intervals [place] Rate: 67 P: 79 OR: 139 QRS: 78 QRSD: 86 T: 79 QT: 369 QTc: 390 Interpretive Statements SINUS RHYTHM WITH MARKED SINUS ARRHYTHMIA CANNOT RULE OUT SEPTAL INFARCT, AGE INDETERMINATE BASELINE ARTIFACT- I, III, AVL, V2 ABNORMAL ECG Electronically Signed On 07-22-2021 20:06:12 SOLE STAINER by Antione Hurtado D.O.
== END 2021-07-22 15:25 | disposition home or self-care (01) ==
LOC: CHSCARD 15:26
PROVIDERS: PCP Family Medicine; Visit Provider Family Medicine
DX: R55 Syncope and collapse (principal)
CPT/HCPCS: 93005

== ENCOUNTER 2021-07-28 07:46 | Outpatient (CLI) | payer BC, SELFPAY ==
--- NOTE | 2021-07-28 07:55 | ECHO_ITS ---
Patient Info Name: Cleve Blas Age: 65 years : 1955 Gender: Male Ht: 71 in Wt: 160 lbs BSA: 1.91 m2 HR: 71 bpm BP: 111 / 66 mmHg Technical Quality: Fair Exam Date: 07/28/2021 8:43 AM Exam Location: [facility] Patient Status: Outpatient Admit Date: 07/28/2021 Staff Ordering Physician: Rodney Schmitt DO Elevator Pilot: Jewels Blanton Attending Provider: Rodney Schmitt DO Referring Physician: Oskar YEBOAH; Exam Type: CA echo doppler color flow Study Info Indications R06.02 - Shortness of breath Complete two-dimensional, color flow and Doppler transthoracic echocardiogram is performed. Summary 1. Complete two-dimensional, color flow and Doppler transthoracic echocardiogram is performed. 2. Left ventricular chamber dimension is normal. 3. Left ventricular systolic function is normal, estimated at 60-65%. 4. The left ventricular diastolic function is grade I diastolic dysfunction. 5. E/e' 7 is not elevated. 6. There is mild aortic valve sclerosis. 7. No pulmonary hypertension, estimated pulmonary arterial systolic pressure is 31 mmHg. Left Ventricle E/e' 7 is not elevated. Left ventricular chamber dimension is normal. Left ventricular systolic function is normal, estimated at 60-65%. The left ventricular diastolic function is grade I diastolic dysfunction. Right Ventricle Right ventricular systolic function is normal and with normal TAPSE 2.0 cm. Right ventricular chamber dimension is normal. Left Atria Left atrial chamber dimension is normal. Right Atria Right atrial chamber dimension is normal. Aortic Valve The aortic valve is trileaflet. There is mild aortic valve sclerosis. There is no aortic valve stenosis. There is no aortic valve regurgitation. Pulmonic Valve There is no pulmonic regurgitation. Mitral Valve There is no mitral valve stenosis. There is no mitral valve regurgitation. Tricuspid Valve There is no tricuspid valve regurgitation. No pulmonary hypertension, estimated pulmonary arterial systolic pressure is 31 mmHg. Pericardium/Pleural There is no pericardial effusion. Inferior Vena Cava Normal inferior vena cava with >50% collapse upon inspiration consistent with normal right atrial pressure, 5 mmHg. Aorta The aortic root size at the sinus of Valsalva is normal. Left Ventricular Outflow Tract Name Value Normal LVOT 2D LVOT Diameter 2.0 cm LVOT Doppler LVOT Peak Velocity 108 cm/s LVOT Peak Gradient 5 mmHg LVOT Mean Gradient 2 mmHg LVOT VTI 23 cm LVOT VTI/AV VTI Ratio 1.1 LVOT Stroke Volume 70 ml Mitral Valve Name Value Normal MV Doppler MV Decel [place] 298 cm/s2 MV PHT
== END 2021-07-28 07:47 | disposition home or self-care (01) ==
LOC: CHSIMG 07:49
PROVIDERS: PCP Family Medicine; Visit Provider Family Medicine
DX: R06.02 Shortness of breath (principal); R55 Syncope and collapse
CPT/HCPCS: 93306

== ENCOUNTER 2021-08-02 08:08 | Outpatient (CLI) | payer BC, SELFPAY ==
--- NOTE | 2021-08-02 09:35 | EST_ITS ---
Patient Info Name: Cleve Blas Age: 65 years : 1955 Gender: Male Ht: 71 in Wt: 160 lbs BSA: 1.91 m2 HR: 51 bpm BP: 127 / 77 mmHg Heart Rhythm: Bradycardia Technical Quality: Excellent Exam Date: 08/02/2021 9:26 AM Exam Location: [facility] Patient Status: Outpatient Admit Date: 08/02/2021 Staff Ordering Physician: Rodney Schmitt DO Attending Provider: Rodney Schmitt DO Exercise Technologist: Hellen Ryan CRT Exercise Physician: Josephine Jeter CEP Exam Type: CA stress kelley w NM Study Info Indications SOB - A nuclear stress test was performed. History/Risk Factors Hypertension: Yes Chronic Lung Disease: Yes Tobacco Use: Current - Frequency Unknown History/Risk Factors HTN. Smoker. Lung Cancer. SOB. SYNCOPE. Summary 1. 1. Negative lexiscan stress test for ischemic ST changes by ECG criteria. 2. 2. Stable hemodynamics throughout the test. 3. 3. Nuclear scan to follow and will be reported separately. Please correlate with it. Protocol: LEXISCAN Stress ECG Details Stage: REST Duration (min): 0 min : 55 sec HR (bpm): 54 SBP (mmHg): 127 DBP (mmHg): 77 Stage: REST Duration (min): 4 min : 20 sec HR (bpm): 52 SBP (mmHg): 127 DBP (mmHg): 77 Stage: STAGE 1 Duration (min): 0 min : 5 sec HR (bpm): 53 SBP (mmHg): 127 DBP (mmHg): 77 Stage: RECOVERY Duration (min): 0 min : 54 sec HR (bpm): 63 SBP (mmHg): 127 DBP (mmHg): 77 Stage: RECOVERY Duration (min): 1 min : 54 sec HR (bpm): 67 SBP (mmHg): 118 DBP (mmHg): 69 Stage: RECOVERY Duration (min): 2 min : 55 sec HR (bpm): 72 SBP (mmHg): 112 DBP (mmHg): 70 Stage: RECOVERY Duration (min): 3 min : 55 sec HR (bpm): 63 SBP (mmHg): 110 DBP (mmHg): 70 Stage: RECOVERY Duration (min): 4 min : 55 sec HR (bpm): 69 SBP (mmHg): 109 DBP (mmHg): 72 Stage: RECOVERY Duration (min): 5 min : 55 sec HR (bpm): 65 SBP (mmHg): 114 DBP (mmHg): 72 Stage: RECOVERY Duration (min): 6 min : 2 sec HR (bpm): 65 SBP (mmHg): 114 DBP (mmHg): 72 Rest HR: 52 bpm Peak HR: 74 bpm Rest Sys BP: 127 mmHg Peak Sys BP: 118 mmHg Max Pred HR: 157 bpm % Max Pred HR: 47 % Target HR: 133 bpm Max RPP: 8,732 bpm*mmHg BP Response: Normal blood pressure response Termination Reason: Completion of Protocol Cardiac Symptoms: Dyspnea Total Time: 0 min : 5 sec [place] BP: 77 mmHg [place] BP: 69 mmHg Total Dose: 0.4 mg Resting ECG Sinus bradycardia, anteroseptal infarct, age indeterminate. Stress ECG No ST changes. Arrhythmias Isolated PVC. Report Signatures
--- NOTE | 2021-08-02 12:05 | WPDCARIOSTRE ---
Nuclear Stress Test INDICATIONS Indications: Shortness of breath PROCEDURE Procedure Performed: Myocardial Perf Spect-Multi Procedure: Patient underwent a lexiscan stress test and immediately was injected with 33.5 mCi of cardiolyte. Multiple tomographic images were obtained. These are of good quality. There is evidence of large size, moderate severity septal perfusion defect and moderate size, moderate severity apical septum perfusion defect during stress imaging. A separate resting images were obtained after patient was injected with 10.3 mCi of cardiolyte. Multiple tomographic images were obtained. These are of good quality. There is evidence of large size, moderate severity septal perfusion defect and moderate size, moderate severity apical septum perfusion defect during rest imaging. CONCLUSION Conclusion: 1. Myocardial perfusion imaging demonstrating a fixed large size septal and fixed moderate size apical septum perfusion defects suggestive of prior myocardial infarction or scar. 2. No evidence of reversible ischemia. 3. Left ventriculogram demonstrates normal measured ejection fraction of 61%, and mild hypokinesis of septal wall. 4. TID score is normal at 1.03.
== END 2021-08-02 08:09 | disposition home or self-care (01) ==
LOC: CHSIMG 08:09
PROVIDERS: PCP Family Medicine; Visit Provider Family Medicine
DX: R55 Syncope and collapse (principal); R06.02 Shortness of breath
CPT/HCPCS: 78452; 93017; A9502; J2785

== ENCOUNTER 2021-08-13 09:15 | Outpatient (CLI) | payer BC, SELFPAY ==
[2021-08-13 09:39] LABS: Estimated Glomerular Filt Rate > 60
== END 2021-08-13 09:16 | disposition home or self-care (01) ==
LOC: CHSLAB 09:21
PROVIDERS: PCP Family Medicine; Visit Provider Internal Medicine Hematology & Oncology
DX: C34.90 Malignant neoplasm of unspecified part of unspecified bronchus or lung (principal)
CPT/HCPCS: 99199

== ENCOUNTER 2021-08-14 08:09 | Outpatient (CLI) | payer BC, SELFPAY ==
--- NOTE | ~2021-08-14 | MR_ITS ---
EXAMINATION: MR brain/brain stem wo/w con DATE: 08/14/2021 09:03 INDICATION: Malignant neoplasm of bronchus and lung. TECHNIQUE: Magnetic resonance imaging (MRI) of the brain and brainstem was performed without and with 10 mL MultiHance intravenous contrast. Sequences included sagittal and axial T1-weighted FSE, axial diffusion-weighted FS EPI, axial T2*-weighted GRE, axial T2-weighted FLAIR Propeller, and axial T2-we ighted Propeller. Postcontrast sequences included axial, sagittal, and coronal T1-weighted FSE. Appar ent diffusion coefficient (ADC) maps were created. COMPARISON: None. FINDINGS: There are scattered areas of nonspecific increased T2-weighted signal intensity in the cere bral white matter, which is within normal limits for the patient's age. There is no intracranial hemo rrhage, acute infarction, or abnormal intracranial mass lesion. The ventricles are normal in size. Th ere are likely changes of ocular lens replacement surgeries. The paranasal sinuses are clear. The mas toid air cells are normal. IMPRESSION: 1. Normal aging brain. Reviewed, dictated and finalized at location E. BALL COACH IMPRESSION: 1. Normal aging brain.
== END 2021-08-14 08:10 | disposition home or self-care (01) ==
LOC: CHSIMG 08:10
PROVIDERS: PCP Family Medicine; Visit Provider Internal Medicine Hematology & Oncology
DX: C34.90 Malignant neoplasm of unspecified part of unspecified bronchus or lung (principal)
CPT/HCPCS: 70553; A9577

== ENCOUNTER 2021-09-09 10:21 | Outpatient (CLI) | payer BC, SELFPAY ==
[2021-09-09 10:38] VITALS: BMI 22.1
[2021-09-09 10:43] LABS: Basophils Absolute Auto 0.06 K/mm3 (0.00-0.10); Basophils Percent Auto 0.7 % (0.0-1.0); Eosinophils Absolute Auto 0.09 K/mm3 (0.02-0.50); Hematocrit 43.3 % (40.0-54.0); Immature Granulocyte Absolute 0.04 K/mm3 (0.00-0.00); Immature Granulocyte Percent A 0.4 % (0.0-0.0); Lymphocytes Absolute Auto 1.35 K/mm3 (1.10-4.50); Lymphocytes Percent Auto 14.7 % (18.0-42.0); Mean Corpuscular HGB Conc 32.3 g/dL (32.0-36.0); Mean Corpuscular Hemoglobin 30.8 pg (27.0-31.0); Mean Corpuscular Volume 95.2 fL (78.0-102.0); Mean Platelet Volume 10.1 fl (8.7-11.0); Monocytes Absolute Auto 0.81 K/mm3 (0.10-0.90); Monocytes Percent Auto 8.8 % (2.0-11.0); Neutrophils Absolute Auto 6.9 K/mm3 (1.7-7.2); Neutrophils Percent Auto 74.4 % (50.0-70.0); Platelet Count Result 254 K/mm3 (150-420); Red Blood Count 4.55 M/mm3 (4.70-6.10); Red Cell Distribution Width 14.9 % (11.6-14.4); White Blood Count 9.2 K/mm3 (4.8-10.8)
[2021-09-09 10:50] VITALS: BP 137/82; PULSE 74; RESP 18; TEMP 36.3; O2SAT 96
[2021-09-09 10:58] LABS: Alanine Aminotransferase 19 U/L (16-63); Albumin Level 3.4 g/dL (3.4-5.0); Alkaline Phosphatase 121 U/L (46-116); Anion Gap 7 mmol/L (8-16); Aspartate Amino Transferase 13 U/L (15-37); Bilirubin,Total 0.5 mg/dL (0.00-1.00); Blood Urea Nitrogen 14 mg/dL (7-18); Calcium 9.1 mg/dL (8.5-10.1); Carbon Dioxide 31 mmol/L (21-32); Chloride 100 mmol/L (98-108); Estimated CRCL calculation 83 ml/min; Estimated Glomerular Filt Rate > 60; Glucose 107 mg/dL (70-99); Osmolality Calculated 286 mOsm/kg (285-295); Potassium 3.8 mmol/L (3.5-5.1); Sodium 138 mmol/L (136-145); Total Protein 7.2 g/dL (6.4-8.2)
[2021-09-09] MEDS: diphenhydrAMINE HCl INJ 50 MG/ML VIAL 25 MG IV PUSH (11:05)
[2021-09-09] MEDS: FAMOTIDINE 20 MG/ISO 50 ML 20 MG/50 ML BAG 100 MG IVPB (11:15)
[2021-09-09] MEDS: SODIUM CHLORIDE 0.9% IV 250 ML 10 ML IVPB (11:16)
[2021-09-09 12:41] VITALS: BMI 39.5
[2021-09-09 12:54] VITALS: BMI 22.1
[2021-09-09] MEDS: HEPARIN SODIUM LOCK FLUSH 500 UNITS/5 ML SYRINGE IV PUSH (14:06)
[2021-09-09 14:08] VITALS: BP 142/68; PULSE 68; RESP 16; TEMP 36.6; O2SAT 96
--- NOTE | 2021-09-09 14:10 | PC.NURSE ---
Patient here for Cycle 1 of 6 IV Chemo Carboplatin and Taxol. Blood drawn from patent port sent lab, reviewed results ok'd for chemo. Education on chemo given. All concerns answered. Chemo regimen administered SEE AUG. Tolerated well. Safe exit of hospital. Will return next . 09/16/21 for Cycle 2.
== END 2021-09-09 10:22 | disposition home or self-care (01) ==
LOC: CHSTREATRM 10:23
PROVIDERS: PCP Family Medicine; Visit Provider Internal Medicine Hematology & Oncology
DX: Z51.11 Encounter for antineoplastic chemotherapy (principal); C34.11 Malignant neoplasm of upper lobe, right bronchus or lung
CPT/HCPCS: 36415; 80053; 85025; 96367; 96375; 96413; 96417; J1100; J1200; J2405; J7050; J9045; J9267

== ENCOUNTER 2021-09-16 10:28 | Outpatient (CLI) | payer BC, SELFPAY ==
[2021-09-16 10:50] VITALS: BMI 21.2
[2021-09-16 10:52] VITALS: BP 128/70; PULSE 80; RESP 18; TEMP 36.6; O2SAT 97
[2021-09-16 10:53] LABS: Basophils Absolute Auto 0.06 K/mm3 (0.00-0.10); Basophils Percent Auto 0.8 % (0.0-1.0); Eosinophils Absolute Auto 0.09 K/mm3 (0.02-0.50); Eosinophils Percent Auto 1.2 % (1.0-6.0); Hematocrit 42.6 % (40.0-54.0); Hemoglobin 13.9 g/dL (14.0-18.0); Immature Granulocyte Absolute 0.06 K/mm3 (0.00-0.00); Immature Granulocyte Percent A 0.8 % (0.0-0.0); Lymphocytes Absolute Auto 1.21 K/mm3 (1.10-4.50); Lymphocytes Percent Auto 15.6 % (18.0-42.0); Mean Corpuscular HGB Conc 32.6 g/dL (32.0-36.0); Mean Corpuscular Volume 94.9 fL (78.0-102.0); Mean Platelet Volume 10.1 fl (8.7-11.0); Monocytes Absolute Auto 0.43 K/mm3 (0.10-0.90); Monocytes Percent Auto 5.5 % (2.0-11.0); Neutrophils Absolute Auto 5.9 K/mm3 (1.7-7.2); Neutrophils Percent Auto 76.1 % (50.0-70.0); Platelet Count Result 258 K/mm3 (150-420); Red Blood Count 4.49 M/mm3 (4.70-6.10); Red Cell Distribution Width 14.3 % (11.6-14.4); White Blood Count 7.8 K/mm3 (4.8-10.8)
[2021-09-16] MEDS: SODIUM CHLORIDE 0.9% IV 250 ML 10 ML IVPB (11:00)
[2021-09-16 11:09] LABS: Alanine Aminotransferase 20 U/L (16-63); Albumin Level 3.4 g/dL (3.4-5.0); Alkaline Phosphatase 121 U/L (46-116); Anion Gap 8 mmol/L (8-16); Aspartate Amino Transferase 12 U/L (15-37); Bilirubin,Total 0.3 mg/dL (0.00-1.00); Blood Urea Nitrogen 16 mg/dL (7-18); Carbon Dioxide 28 mmol/L (21-32); Chloride 98 mmol/L (98-108); Estimated CRCL calculation 80 ml/min; Estimated Glomerular Filt Rate > 60; Glucose 111 mg/dL (70-99); Osmolality Calculated 280 mOsm/kg (285-295); Potassium 4.1 mmol/L (3.5-5.1); Sodium 134 mmol/L (136-145)
[2021-09-16] MEDS: diphenhydrAMINE HCl INJ 50 MG/ML VIAL (11:22)
[2021-09-16] MEDS: FAMOTIDINE 20 MG/ISO 50 ML 20 MG/50 ML BAG 100 MG IVPB (11:23)
[2021-09-16] MEDS: HEPARIN SODIUM LOCK FLUSH 500 UNITS/5 ML SYRINGE IV PUSH (13:56)
[2021-09-16 13:58] VITALS: BP 129/76; PULSE 80; RESP 16; TEMP 36.4; O2SAT 96
--- NOTE | 2021-09-16 13:59 | PC.NURSE ---
Patient here for cycle 2 of 6 chemo therapy -Taxol/Carboplatin regime. Labs drawn and reviewed results ok to chemo. Continue education given. All concerns answered. IV Chemo regimen administered. SEE MAR. Tolerated well. Safe exit of hospital. Will return 09/23/21 after radiation.
== END 2021-09-16 10:29 | disposition home or self-care (01) ==
LOC: CHSTREATRM 10:32
PROVIDERS: PCP Family Medicine; Visit Provider Internal Medicine Hematology & Oncology
DX: Z51.11 Encounter for antineoplastic chemotherapy (principal); C34.11 Malignant neoplasm of upper lobe, right bronchus or lung
CPT/HCPCS: 36415; 80053; 85025; 96367; 96375; 96411; 96413; 96417; J1100; J1200; J2405; J7050; J9045; J9267

== ENCOUNTER 2021-09-23 10:38 | Outpatient (CLI) | payer BC, SELFPAY ==
[2021-09-23] MEDS: SODIUM CHLORIDE 0.9% IV 250 ML 10 ML IVPB (10:40)
[2021-09-23 10:57] VITALS: BP 106/69; PULSE 70; RESP 18; TEMP 36.6; O2SAT 97
[2021-09-23 11:00] VITALS: BMI 21.2
[2021-09-23 11:03] LABS: Basophils Absolute Auto 0.07 K/mm3 (0.00-0.10); Basophils Percent Auto 1.6 % (0.0-1.0); Eosinophils Absolute Auto 0.09 K/mm3 (0.02-0.50); Eosinophils Percent Auto 2.1 % (1.0-6.0); Hematocrit 42.7 % (40.0-54.0); Hemoglobin 13.8 g/dL (14.0-18.0); Immature Granulocyte Absolute 0.01 K/mm3 (0.00-0.00); Immature Granulocyte Percent A 0.2 % (0.0-0.0); Lymphocytes Absolute Auto 0.93 K/mm3 (1.10-4.50); Lymphocytes Percent Auto 21.7 % (18.0-42.0); Mean Corpuscular HGB Conc 32.3 g/dL (32.0-36.0); Mean Corpuscular Hemoglobin 30.6 pg (27.0-31.0); Mean Corpuscular Volume 94.7 fL (78.0-102.0); Mean Platelet Volume 9.6 fl (8.7-11.0); Monocytes Percent Auto 9.3 % (2.0-11.0); Neutrophils Absolute Auto 2.8 K/mm3 (1.7-7.2); Neutrophils Percent Auto 65.1 % (50.0-70.0); Platelet Count Result 281 K/mm3 (150-420); Red Blood Count 4.51 M/mm3 (4.70-6.10); Red Cell Distribution Width 14.5 % (11.6-14.4); White Blood Count 4.3 K/mm3 (4.8-10.8)
[2021-09-23 11:12] LABS: Alanine Aminotransferase 20 U/L (16-63); Albumin Level 3.3 g/dL (3.4-5.0); Alkaline Phosphatase 107 U/L (46-116); Anion Gap 6 mmol/L (8-16); Aspartate Amino Transferase 12 U/L (15-37); Bilirubin,Total 0.4 mg/dL (0.00-1.00); Blood Urea Nitrogen 11 mg/dL (7-18); Calcium 9.3 mg/dL (8.5-10.1); Carbon Dioxide 35 mmol/L (21-32); Chloride 100 mmol/L (98-108); Estimated CRCL calculation 72 ml/min; Estimated Glomerular Filt Rate > 60; Glucose 99 mg/dL (70-99); Osmolality Calculated 291 mOsm/kg (285-295); Potassium 4.2 mmol/L (3.5-5.1); Sodium 141 mmol/L (136-145); Total Protein 6.9 g/dL (6.4-8.2)
[2021-09-23] MEDS: diphenhydrAMINE HCl INJ 50 MG/ML VIAL 25 MG IV PUSH (11:30)
[2021-09-23] MEDS: FAMOTIDINE 20 MG/ISO 50 ML 20 MG/50 ML BAG 150 MG IVPB (11:35)
--- NOTE | 2021-09-23 13:42 | PC.NURSE ---
Patient here for cycle 3 of Carbo/Taxol chemo regimen. Labs drawn/reviewed results ok'd for chemo. Education given. No concerns voiced. Reports of fatigued all the time. IV Chemo regime administered see AUG. Tolerated well. Safe exit of hospital. Will return Thur. Sep 30, 2021 for #4.
[2021-09-23] MEDS: HEPARIN SODIUM LOCK FLUSH 500 UNITS/5 ML SYRINGE IV PUSH (13:44)
== END 2021-09-23 10:39 | disposition home or self-care (01) ==
PROVIDERS: PCP Family Medicine; Visit Provider Internal Medicine Hematology & Oncology
DX: Z51.11 Encounter for antineoplastic chemotherapy (principal); C34.11 Malignant neoplasm of upper lobe, right bronchus or lung
CPT/HCPCS: 36415; 80053; 85025; 96367; 96375; 96413; 96417; J1100; J1200; J2405; J7050; J9045; J9267

== ENCOUNTER 2021-09-30 10:07 | Outpatient (CLI) | payer BC, SELFPAY ==
[2021-09-30 10:24] LABS: Basophils Absolute Auto 0.07 K/mm3 (0.00-0.10); Basophils Percent Auto 1.3 % (0.0-1.0); Eosinophils Absolute Auto 0.04 K/mm3 (0.02-0.50); Eosinophils Percent Auto 0.7 % (1.0-6.0); Hematocrit 42.1 % (40.0-54.0); Hemoglobin 13.7 g/dL (14.0-18.0); Immature Granulocyte Absolute 0.03 K/mm3 (0.00-0.00); Immature Granulocyte Percent A 0.5 % (0.0-0.0); Lymphocytes Absolute Auto 1.05 K/mm3 (1.10-4.50); Lymphocytes Percent Auto 19.1 % (18.0-42.0); Mean Corpuscular HGB Conc 32.5 g/dL (32.0-36.0); Mean Corpuscular Hemoglobin 30.6 pg (27.0-31.0); Mean Corpuscular Volume 94.2 fL (78.0-102.0); Mean Platelet Volume 9.3 fl (8.7-11.0); Monocytes Absolute Auto 0.48 K/mm3 (0.10-0.90); Monocytes Percent Auto 8.7 % (2.0-11.0); Neutrophils Absolute Auto 3.8 K/mm3 (1.7-7.2); Neutrophils Percent Auto 69.7 % (50.0-70.0); Platelet Count Result 209 K/mm3 (150-420); Red Blood Count 4.47 M/mm3 (4.70-6.10); Red Cell Distribution Width 14.7 % (11.6-14.4); White Blood Count 5.5 K/mm3 (4.8-10.8)
[2021-09-30 10:26] VITALS: BP 123/77; PULSE 88; RESP 16; TEMP 36.6; O2SAT 98; BMI 23.1
[2021-09-30 10:40] LABS: Alanine Aminotransferase 25 U/L (16-63); Albumin Level 3.7 g/dL (3.4-5.0); Alkaline Phosphatase 100 U/L (46-116); Anion Gap 6 mmol/L (8-16); Aspartate Amino Transferase 13 U/L (15-37); Bilirubin,Total 0.3 mg/dL (0.00-1.00); Blood Urea Nitrogen 28 mg/dL (7-18); Calcium 9.4 mg/dL (8.5-10.1); Carbon Dioxide 28 mmol/L (21-32); Chloride 100 mmol/L (98-108); Estimated CRCL calculation 73 ml/min; Estimated Glomerular Filt Rate > 60; Glucose 117 mg/dL (70-99); Osmolality Calculated 284 mOsm/kg (285-295); Potassium 4.9 mmol/L (3.5-5.1); Sodium 134 mmol/L (136-145); Total Protein 7.2 g/dL (6.4-8.2)
[2021-09-30] MEDS: SODIUM CHLORIDE 0.9% IV 250 ML 40 ML IVPB (10:40)
[2021-09-30] MEDS: FAMOTIDINE 20 MG/ISO 50 ML 20 MG/50 ML BAG 100 MG IVPB (10:45)
[2021-09-30] MEDS: diphenhydrAMINE HCl INJ 50 MG/ML VIAL 25 MG IV PUSH (10:55)
--- NOTE | 2021-09-30 11:24 | PC.NURSE ---
Patient here for cycle 4 of 6 Taxol/Carbo chemotherapy regimen. Labs drawn, sent to lab, reviewed and ok for proceed with chemo. Education on chemo given. Patient has no concerns. Just reports Being tired and Can't wait until Radiation/chemo is done. Chemo regimen administered. SEE MAR.
[2021-09-30] MEDS: HEPARIN SODIUM LOCK FLUSH 500 UNITS/5 ML SYRINGE IV PUSH (13:14)
[2021-09-30] MEDS: HEPARIN SODIUM LOCK FLUSH 500 UNITS/5 ML SYRINGE (13:20)
--- NOTE | 2021-09-30 13:30 | PC.NURSE ---
All medications infused without difficulty. Port flushed and deaccessed per protocolPt has no complaints. Discharged to patients car per .
== END 2021-09-30 10:08 | disposition home or self-care (01) ==
PROVIDERS: PCP Family Medicine; Visit Provider Internal Medicine Hematology & Oncology
DX: Z51.11 Encounter for antineoplastic chemotherapy (principal); C34.11 Malignant neoplasm of upper lobe, right bronchus or lung
CPT/HCPCS: 36415; 80053; 85025; 96367; 96375; 96413; 96417; J1100; J1200; J2405; J7050; J9045; J9267

== ENCOUNTER 2021-10-07 10:17 | Outpatient (CLI) | payer BC, SELFPAY ==
[2021-10-07] MEDS: SODIUM CHLORIDE 0.9% IV 250 ML 10 ML IVPB (10:35)
[2021-10-07 10:37] VITALS: BP 109/67; PULSE 82; RESP 16; TEMP 36.2; O2SAT 98; BMI 23.1
[2021-10-07 10:37] LABS: Basophils Absolute Auto 0.08 K/mm3 (0.00-0.10); Basophils Percent Auto 1.7 % (0.0-1.0); Eosinophils Absolute Auto 0.05 K/mm3 (0.02-0.50); Eosinophils Percent Auto 1.1 % (1.0-6.0); Hematocrit 38.7 % (40.0-54.0); Hemoglobin 12.8 g/dL (14.0-18.0); Immature Granulocyte Absolute 0.02 K/mm3 (0.00-0.00); Immature Granulocyte Percent A 0.4 % (0.0-0.0); Lymphocytes Absolute Auto 0.89 K/mm3 (1.10-4.50); Lymphocytes Percent Auto 19.1 % (18.0-42.0); Mean Corpuscular HGB Conc 33.1 g/dL (32.0-36.0); Mean Corpuscular Hemoglobin 31.2 pg (27.0-31.0); Mean Corpuscular Volume 94.4 fL (78.0-102.0); Mean Platelet Volume 9.5 fl (8.7-11.0); Monocytes Absolute Auto 0.52 K/mm3 (0.10-0.90); Monocytes Percent Auto 11.1 % (2.0-11.0); Neutrophils Absolute Auto 3.1 K/mm3 (1.7-7.2); Neutrophils Percent Auto 66.6 % (50.0-70.0); Platelet Count Result 143 K/mm3 (150-420); Red Cell Distribution Width 14.7 % (11.6-14.4); White Blood Count 4.7 K/mm3 (4.8-10.8)
[2021-10-07] MEDS: diphenhydrAMINE HCl INJ 50 MG/ML VIAL 25 MG IV PUSH (10:40)
[2021-10-07] MEDS: FAMOTIDINE 20 MG/ISO 50 ML 20 MG/50 ML BAG 150 MG IVPB (10:50)
[2021-10-07 10:55] LABS: Alanine Aminotransferase 29 U/L (16-63); Albumin Level 3.5 g/dL (3.4-5.0); Alkaline Phosphatase 102 U/L (46-116); Anion Gap 5 mmol/L (8-16); Aspartate Amino Transferase 16 U/L (15-37); Bilirubin,Total 0.3 mg/dL (0.00-1.00); Blood Urea Nitrogen 18 mg/dL (7-18); Calcium 9.1 mg/dL (8.5-10.1); Carbon Dioxide 30 mmol/L (21-32); Chloride 102 mmol/L (98-108); Estimated CRCL calculation 101 ml/min; Estimated Glomerular Filt Rate > 60; Glucose 98 mg/dL (70-99); Osmolality Calculated 285 mOsm/kg (285-295); Potassium 4.6 mmol/L (3.5-5.1); Sodium 137 mmol/L (136-145); Total Protein 6.8 g/dL (6.4-8.2)
--- NOTE | 2021-10-07 12:47 | PC.NURSE ---
Patient here for cycle 5 of 6 Chemo regimen Taxol/Carboplatin. No concerns voiced other than being tired. Weight staying steady. Appetite good. Labs drawn/reviewed results/OK'd to proceed. IV Chemo regimen administered. SEE MAR. Tolerated well. Safe exit of hospital. Will return for #6 of 6 10/08/21 after radiation.
[2021-10-07] MEDS: HEPARIN SODIUM LOCK FLUSH 500 UNITS/5 ML SYRINGE IV PUSH (13:00)
== END 2021-10-07 10:18 | disposition home or self-care (01) ==
LOC: CHSLAB 10:19 → CHSTREATRM 10:33
PROVIDERS: PCP Family Medicine; Visit Provider Internal Medicine Hematology & Oncology
DX: Z51.11 Encounter for antineoplastic chemotherapy (principal); C34.11 Malignant neoplasm of upper lobe, right bronchus or lung
CPT/HCPCS: 36415; 80053; 85025; 96367; 96375; 96413; 96417; J1100; J1200; J2405; J7050; J9045; J9267

== ENCOUNTER 2021-10-14 10:09 | Outpatient (CLI) | payer BC, SELFPAY ==
[2021-10-14 10:16] VITALS: BMI 23.0
[2021-10-14 10:26] VITALS: BP 125/69; PULSE 92; RESP 16; TEMP 36.4; O2SAT 98
[2021-10-14 10:31] LABS: Basophils Absolute Auto 0.04 K/mm3 (0.00-0.10); Basophils Percent Auto 0.7 % (0.0-1.0); Eosinophils Absolute Auto 0.03 K/mm3 (0.02-0.50); Eosinophils Percent Auto 0.5 % (1.0-6.0); Hematocrit 40.3 % (40.0-54.0); Hemoglobin 13.3 g/dL (14.0-18.0); Immature Granulocyte Absolute 0.03 K/mm3 (0.00-0.00); Immature Granulocyte Percent A 0.5 % (0.0-0.0); Lymphocytes Percent Auto 12.2 % (18.0-42.0); Mean Corpuscular Hemoglobin 30.5 pg (27.0-31.0); Mean Corpuscular Volume 92.4 fL (78.0-102.0); Mean Platelet Volume 9.4 fl (8.7-11.0); Monocytes Absolute Auto 0.43 K/mm3 (0.10-0.90); Monocytes Percent Auto 7.5 % (2.0-11.0); Neutrophils Absolute Auto 4.5 K/mm3 (1.7-7.2); Neutrophils Percent Auto 78.6 % (50.0-70.0); Platelet Count Result 159 K/mm3 (150-420); Red Blood Count 4.36 M/mm3 (4.70-6.10); Red Cell Distribution Width 15.3 % (11.6-14.4); White Blood Count 5.7 K/mm3 (4.8-10.8)
[2021-10-14] MEDS: SODIUM CHLORIDE 0.9% IV 250 ML 10 ML IVPB (10:45)
[2021-10-14 10:46] LABS: Alanine Aminotransferase 30 U/L (16-63); Albumin Level 3.8 g/dL (3.4-5.0); Alkaline Phosphatase 89 U/L (46-116); Anion Gap 8 mmol/L (8-16); Aspartate Amino Transferase 14 U/L (15-37); Bilirubin,Total 0.5 mg/dL (0.00-1.00); Blood Urea Nitrogen 22 mg/dL (7-18); Calcium 9.3 mg/dL (8.5-10.1); Carbon Dioxide 29 mmol/L (21-32); Chloride 99 mmol/L (98-108); Estimated CRCL calculation 85 ml/min; Estimated Glomerular Filt Rate > 60; Glucose 109 mg/dL (70-99); Osmolality Calculated 286 mOsm/kg (285-295); Sodium 136 mmol/L (136-145)
[2021-10-14] MEDS: FAMOTIDINE 20 MG/ISO 50 ML 20 MG/50 ML BAG 150 MG IVPB (10:50)
[2021-10-14] MEDS: diphenhydrAMINE HCl INJ 50 MG/ML VIAL 25 MG IV PUSH (10:50)
--- NOTE | 2021-10-14 13:28 | PC.NURSE ---
Patient here for #6 of 6 weekly Carbo/Taxol chemotherapy regimen. Labs drawn/reviewed/ok'd for chemo. Education given. Patient reports just feeling tired and gets short of breath. IV Chemo regimen administered SEE AUG. Tolerated well. Safe exit of hospital. Will follow up with Dr. Peñaloza.
[2021-10-14] MEDS: HEPARIN SODIUM LOCK FLUSH 500 UNITS/5 ML SYRINGE IV PUSH (13:39)
== END 2021-10-14 10:10 | disposition home or self-care (01) ==
LOC: CHSTREATRM 10:11
PROVIDERS: PCP Family Medicine; Visit Provider Internal Medicine Hematology & Oncology
DX: Z51.11 Encounter for antineoplastic chemotherapy (principal); C34.11 Malignant neoplasm of upper lobe, right bronchus or lung
CPT/HCPCS: 36415; 80053; 85025; 96367; 96375; 96413; 96417; J1100; J1200; J2405; J7050; J9045; J9267

== ENCOUNTER 2021-11-02 06:55 | Outpatient (CLI) | payer BC, SELFPAY ==
--- NOTE | ~2021-11-02 | CT_ITS ---
EXAMINATION: CT chest abdomen pelvis w con DATE: 11/02/2021 07:54 INDICATION: Lung cancer TECHNIQUE: Transaxial computed tomographic images of the chest, abdomen, and pelvis were obtained aft er the administration of 100 cc of Omnipaque 350 intravenous contrast. The dose-length product (DLP) was 504.33 mGy-cm. Automated exposure control and iterative reconstruction technique were employed. COMPARISON: 07/13/2021 FINDINGS: CHEST CT: There is a 3.1 cm mass in the right upper lobe which has decreased in size,, previously measuring 4.0 cm. There is severe emphysema. Nodules in the left lung apex persist without significant change. No new pulmonary nodules are identified. There is no pleural effusion or pneumothorax. The lungs are emma e of acute opacities. A left internal jugular Port-A-Cath ends with its tip in the distal superior ve na cava. No pathologically enlarged thoracic lymph nodes are identified. The heart size is normal. ABDOMEN/PELVIS CT: The liver, spleen, pancreas, gallbladder, and right adrenal gland are normal. There is a stable adeno ma of the left adrenal gland. The kidneys are unremarkable. No pathologically enlarged abdominal or p elvic lymph nodes are identified. There is no free intraperitoneal gas or evidence of bowel obstructi on. There is moderate lumbar spondylosis. IMPRESSION: 1. Right upper lobe malignancy with decrease in size, consistent with treatment response. Reviewed, dictated and finalized at location A.
== END 2021-11-02 06:56 | disposition home or self-care (01) ==
LOC: CHSIMG 06:56
PROVIDERS: PCP Family Medicine; Visit Provider Internal Medicine Hematology & Oncology
DX: C34.90 Malignant neoplasm of unspecified part of unspecified bronchus or lung (principal)
CPT/HCPCS: 71260; 74177; Q9967

== ENCOUNTER 2021-11-11 11:12 | Outpatient (CLI) | payer BC, SELFPAY ==
[2021-11-11 11:28] LABS: Basophils Absolute Auto 0.05 K/mm3 (0.00-0.10); Basophils Percent Auto 0.7 % (0.0-1.0); Eosinophils Absolute Auto 0.03 K/mm3 (0.02-0.50); Eosinophils Percent Auto 0.4 % (1.0-6.0); Hematocrit 37.1 % (40.0-54.0); Hemoglobin 12.4 g/dL (14.0-18.0); Immature Granulocyte Absolute 0.04 K/mm3 (0.00-0.00); Immature Granulocyte Percent A 0.6 % (0.0-0.0); Lymphocytes Absolute Auto 0.76 K/mm3 (1.10-4.50); Lymphocytes Percent Auto 10.7 % (18.0-42.0); Mean Corpuscular HGB Conc 33.4 g/dL (32.0-36.0); Mean Corpuscular Hemoglobin 32.5 pg (27.0-31.0); Mean Corpuscular Volume 97.4 fL (78.0-102.0); Mean Platelet Volume 9.2 fl (8.7-11.0); Monocytes Absolute Auto 0.69 K/mm3 (0.10-0.90); Monocytes Percent Auto 9.7 % (2.0-11.0); Neutrophils Absolute Auto 5.5 K/mm3 (1.7-7.2); Neutrophils Percent Auto 77.9 % (50.0-70.0); Platelet Count Result 200 K/mm3 (150-420); Red Blood Count 3.81 M/mm3 (4.70-6.10); Red Cell Distribution Width 20.4 % (11.6-14.4); White Blood Count 7.1 K/mm3 (4.8-10.8)
[2021-11-11 11:50] LABS: Alanine Aminotransferase 13 U/L (16-63); Albumin Level 3.7 g/dL (3.4-5.0); Alkaline Phosphatase 97 U/L (46-116); Anion Gap 4 mmol/L (8-16); Aspartate Amino Transferase 18 U/L (15-37); Bilirubin,Total 0.3 mg/dL (0.00-1.00); Blood Urea Nitrogen 12 mg/dL (7-18); Carbon Dioxide 31 mmol/L (21-32); Chloride 99 mmol/L (98-108); Estimated Glomerular Filt Rate > 60; Glucose 117 mg/dL (70-99); Osmolality Calculated 278 mOsm/kg (285-295); Sodium 134 mmol/L (136-145)
== END 2021-11-11 11:13 | disposition home or self-care (01) ==
LOC: CHSLAB 11:16
PROVIDERS: PCP Family Medicine; Visit Provider Internal Medicine Hematology & Oncology
DX: C34.90 Malignant neoplasm of unspecified part of unspecified bronchus or lung (principal)
CPT/HCPCS: 36415; 80053; 85025

== ENCOUNTER 2021-11-30 09:24 | Outpatient (CLI) | payer BC, SELFPAY ==
[2021-11-30 09:47] VITALS: BP 118/65; PULSE 86; RESP 16; TEMP 36.3; O2SAT 97
[2021-11-30 09:49] LABS: Basophils Absolute Auto 0.07 K/mm3 (0.00-0.10); Basophils Percent Auto 0.7 % (0.0-1.0); Eosinophils Absolute Auto 0.18 K/mm3 (0.02-0.50); Eosinophils Percent Auto 1.9 % (1.0-6.0); Hematocrit 40.6 % (40.0-54.0); Hemoglobin 13.3 g/dL (14.0-18.0); Immature Granulocyte Absolute 0.05 K/mm3 (0.00-0.00); Immature Granulocyte Percent A 0.5 % (0.0-0.0); Lymphocytes Absolute Auto 0.95 K/mm3 (1.10-4.50); Lymphocytes Percent Auto 10.1 % (18.0-42.0); Mean Corpuscular HGB Conc 32.8 g/dL (32.0-36.0); Mean Corpuscular Hemoglobin 33.2 pg (27.0-31.0); Mean Corpuscular Volume 101.2 fL (78.0-102.0); Mean Platelet Volume 9.8 fl (8.7-11.0); Monocytes Absolute Auto 0.88 K/mm3 (0.10-0.90); Monocytes Percent Auto 9.4 % (2.0-11.0); Neutrophils Absolute Auto 7.2 K/mm3 (1.7-7.2); Neutrophils Percent Auto 77.4 % (50.0-70.0); Platelet Count Result 204 K/mm3 (150-420); Red Blood Count 4.01 M/mm3 (4.70-6.10); Red Cell Distribution Width 20.8 % (11.6-14.4); White Blood Count 9.4 K/mm3 (4.8-10.8)
[2021-11-30 09:53] VITALS: BMI 23.1
[2021-11-30 10:03] LABS: Alanine Aminotransferase 23 U/L (16-63); Albumin Level 3.6 g/dL (3.4-5.0); Alkaline Phosphatase 106 U/L (46-116); Anion Gap 7 mmol/L (8-16); Aspartate Amino Transferase 15 U/L (15-37); Bilirubin,Total 0.2 mg/dL (0.00-1.00); Blood Urea Nitrogen 19 mg/dL (7-18); Calcium 9.1 mg/dL (8.5-10.1); Carbon Dioxide 27 mmol/L (21-32); Chloride 102 mmol/L (98-108); Estimated CRCL calculation 79 ml/min; Estimated Glomerular Filt Rate > 60; Glucose 114 mg/dL (70-99); Osmolality Calculated 285 mOsm/kg (285-295); Potassium 3.9 mmol/L (3.5-5.1); Sodium 136 mmol/L (136-145); Total Protein 6.8 g/dL (6.4-8.2)
[2021-11-30] MEDS: diphenhydrAMINE HCl INJ 50 MG/ML VIAL 25 MG IV PUSH (10:05)
[2021-11-30] MEDS: SODIUM CHLORIDE 0.9% IV 250 ML 10 ML IVPB (10:05)
[2021-11-30] MEDS: FAMOTIDINE 20 MG/2 ML VIAL IV PUSH (10:10)
[2021-11-30 14:28] VITALS: BP 130/70; PULSE 92; RESP 18; TEMP 36.6; O2SAT 96
[2021-11-30] MEDS: HEPARIN SODIUM LOCK FLUSH 500 UNITS/5 ML SYRINGE IV PUSH (14:30)
--- NOTE | 2021-11-30 14:33 | PC.NURSE ---
Patient here for Cycle 1 of 2 of chemo-Carbo/Taxol regimen. Education on chemo given. No concerns voiced. Labs drawn,reviewed, and ok'd for chemo. IV Chemo regimen administered- see MAR. Patient tolerated well. Safe exit of hospital. Will return December 21, 2001 at 0930 for cycle 2 of 2.
== END 2021-11-30 09:25 | disposition home or self-care (01) ==
PROVIDERS: PCP Family Medicine; Visit Provider Internal Medicine Hematology & Oncology
DX: Z51.11 Encounter for antineoplastic chemotherapy (principal); C34.11 Malignant neoplasm of upper lobe, right bronchus or lung
CPT/HCPCS: 80053; 85025; 96367; 96375; 96413; 96415; 96417; J1100; J1200; J2405; J7040; J9045; J9267

== ENCOUNTER 2021-12-21 09:43 | Outpatient (CLI) | payer BC, SELFPAY ==
[2021-12-21] MEDS: SODIUM CHLORIDE 0.9% IV 250 ML 30 ML IVPB (10:00)
[2021-12-21 10:02] LABS: Basophils Absolute Auto 0.03 K/mm3 (0.00-0.10); Basophils Percent Auto 0.6 % (0.0-1.0); Eosinophils Absolute Auto 0.06 K/mm3 (0.02-0.50); Eosinophils Percent Auto 1.2 % (1.0-6.0); Hematocrit 35.2 % (40.0-54.0); Hemoglobin 11.5 g/dL (14.0-18.0); Immature Granulocyte Absolute 0.02 K/mm3 (0.00-0.00); Immature Granulocyte Percent A 0.4 % (0.0-0.0); Lymphocytes Absolute Auto 0.72 K/mm3 (1.10-4.50); Lymphocytes Percent Auto 14.3 % (18.0-42.0); Mean Corpuscular HGB Conc 32.7 g/dL (32.0-36.0); Mean Corpuscular Hemoglobin 34.1 pg (27.0-31.0); Mean Corpuscular Volume 104.5 fL (78.0-102.0); Mean Platelet Volume 9.1 fl (8.7-11.0); Monocytes Absolute Auto 0.65 K/mm3 (0.10-0.90); Monocytes Percent Auto 12.9 % (2.0-11.0); Neutrophils Absolute Auto 3.6 K/mm3 (1.7-7.2); Neutrophils Percent Auto 70.6 % (50.0-70.0); Platelet Count Result 111 K/mm3 (150-420); Red Blood Count 3.37 M/mm3 (4.70-6.10); Red Cell Distribution Width 18.3 % (11.6-14.4)
[2021-12-21 10:05] VITALS: BP 112/67; PULSE 92; RESP 18; TEMP 36.4; O2SAT 97
[2021-12-21 10:07] VITALS: BMI 23.1
[2021-12-21] MEDS: diphenhydrAMINE HCl INJ 50 MG/ML VIAL 25 MG IV PUSH (10:15)
[2021-12-21 10:17] LABS: Alanine Aminotransferase 16 U/L (16-63); Albumin Level 3.4 g/dL (3.4-5.0); Alkaline Phosphatase 116 U/L (46-116); Anion Gap 7 mmol/L (8-16); Aspartate Amino Transferase 18 U/L (15-37); Bilirubin,Total 0.2 mg/dL (0.00-1.00); Blood Urea Nitrogen 18 mg/dL (7-18); Calcium 9.2 mg/dL (8.5-10.1); Carbon Dioxide 27 mmol/L (21-32); Chloride 105 mmol/L (98-108); Estimated CRCL calculation 75 ml/min; Estimated Glomerular Filt Rate > 60; Glucose 115 mg/dL (70-99); Osmolality Calculated 290 mOsm/kg (285-295); Sodium 139 mmol/L (136-145); Total Protein 6.6 g/dL (6.4-8.2)
[2021-12-21] MEDS: FAMOTIDINE 20 MG/ISO 50 ML 20 MG/50 ML BAG 150 MG IVPB (10:20)
[2021-12-21] MEDS: HEPARIN SODIUM LOCK FLUSH 500 UNITS/5 ML SYRINGE IV PUSH (14:39)
--- NOTE | 2021-12-21 14:40 | PC.NURSE ---
Patient here for IV Chemo regimen Cycle 2 of 2 of Taxol/Carboplatin. Labs drawn, reviewed, ok'd for chemo infusion. Education given. Reports very tired after last chemo infusion 3 weeks ago. It took a lot out of me. All concerns answered. IV Chemo regimen administered. SEE MAR. Tolerated well. Safe exit of hospital. Will follow up with Dr. Peñaloza. Will wait for Dr. Peñaloza's orders.
[2021-12-21 14:45] VITALS: BP 100/63; PULSE 92; RESP 16; O2SAT 96
== END 2021-12-21 09:44 | disposition home or self-care (01) ==
LOC: CHSTREATRM 09:44
PROVIDERS: PCP Family Medicine; Visit Provider Internal Medicine Hematology & Oncology
DX: Z51.11 Encounter for antineoplastic chemotherapy (principal); C34.11 Malignant neoplasm of upper lobe, right bronchus or lung
CPT/HCPCS: 36415; 80053; 85025; 96367; 96375; 96413; 96415; 96417; J1100; J1200; J2405; J7040; J7050; J9045; J9267

== ENCOUNTER 2022-01-04 08:03 | Outpatient (CLI) | payer BC, SELFPAY ==
--- NOTE | 2022-01-30 23:23 | WPDSLEEPSTUD ---
Sleep Study Date of Study: 01/04/22 Ordering Provider: Duran Ruiz APRN Interpreting Physician: Gypsy Corral MD Sleep Study Type: Polysomnogram Height: 1.8 m Weight: 76.657 kg Body Mass Index: 23.6 Neck Circumference (inches): 16 [place]: 10 Reason for Sleep Study Poor quality sleep, cannot sleep more than 2 hours at a time Sleep History Cleve Blas is a 66 year old man with difficulty getting to sleep and staying asleep. He is excessively sleepy in the day. He constantly awakens from sleep feeling short of breath. He frequently wakes at night with heartburn, belching and coughing. He occasionally snores. Rarely does he snores loudly enough that others complain about it. He frequently wakes at night gasping for breath. He rarely sweats excessively at night or notices his heart pounding or beating irregularly at night. He occasionally falls asleep in the day. He does not fall asleep involuntarily or fall asleep while driving. He does not have loss of muscle tone with strong emotion. He rarely has daytime difficulties due to excessive sleepiness. He does not feel paralyzed on waking or falling asleep or have vivid dreamlike scenes upon awakening or falling asleep. He does not feel afraid to go to sleep. He rarely has nightmares. He rarely remembers his dreams. He frequently has racing thoughts through his mind. He rarely feels sad depressed or anxious. He does not have muscular tension. He does not notice parts of his body jerking. He occasionally kicks during the night. He frequently has crawling and aching aching feelings in the legs and leg pain during the night. He rarely has morning jaw pain. He does not grind his teeth during sleep. He occasionally is bothered by pain during the day and occasionally awakened by pain during the night. He frequently wakes up feeling stiff in the morning with sore or achy muscles and occasionally wakes up with pain in the neck and spine. He has fatigue and insomnia. Normal bedtime is 7:00 p.m. taking an hour to fall asleep, typically waking 4-5 times during the night for 30 minutes at a time. He wakes at 6:00 a.m. He estimates getting between 8 and 9 hours of sleep at night. His weekend schedule is the same. He takes naps during the day. A short nap is not refreshing. He is usually drowsy for 3 hours after waking. He feels better in the morning compared to other times of day. Habits: Tobacco 1 pack a day. He consumes caffeine. No alcohol or recreational drugs. [facility] Past Medical History Medical History Cataracts, both eyes Colon polyp COPD (chronic obstructive pulmonary disease) Erectile dysfunction SAUL (generalized anxiety disorder) Hx of colonic polyp Hypertension Tobacco abuse Surgical History Surgical History History of appendectomy Social History Social History Smoking packs per day: 1 Smoking cigarettes per day: 20.0 Years smoked: 50 Smoking pack-years: 50.00 Smoking status: Current every day smoker Tobacco type: cigarettes Alcohol intake: never Alcohol use details: History of Alcoholism. Quit drinking 2017. Suicide attempt 2017. Substance use: never Substance use type: does not use Last use: 40 years myesha Additional living arrangements comments: . 4 Adult Children. Spiritual care concerns: No Medications Home Medications Medication Instructions Recorded Confirmed Type aspirin 81 mg tablet,delayed 81 mg PO DAILY 02/27/20 01/09/22 History release (Aspir-) metoprolol tartrate 50 mg tablet See Rx Instructions .Route 05/11/21 01/09/22 Rx .COMPLEX #180 tabs eszopiclone 2 mg tablet (Lunesta) 2 mg PO QHS PRN insomnia #30 tabs 10/06/21 01/09/22 Rx fluticasone propionate 50 See Rx Instructions .Route 12/08/21 01/09/22 Rx mcg/actuation nasal .COMPL
--- NOTE | 2022-01-31 12:06 | P.SLEEP_ITS ---
Sleep Study Date of Study: 01/04/22 Ordering Provider: Duran Ruiz APRN Interpreting Physician: Nimco Chavez DO Sleep Study Type: Polysomnogram Height: 1.8 m Weight: 76.657 kg Body Mass Index: 23.6 Neck Circumference (inches): 16 [place]: 10 [facility] Past Medical History Medical History Cataracts, both eyes Colon polyp COPD (chronic obstructive pulmonary disease) Erectile dysfunction SAUL (generalized anxiety disorder) Hx of colonic polyp Hypertension Tobacco abuse Surgical History Surgical History History of appendectomy Social History Social History Smoking packs per day: 1 Smoking cigarettes per day: 20.0 Years smoked: 50 Smoking pack-years: 50.00 Smoking status: Current every day smoker Tobacco type: cigarettes Alcohol intake: never Alcohol use details: History of Alcoholism. Quit drinking 2017. Suicide attempt 2017. Substance use: never Substance use type: does not use Last use: 40 years myesha Additional living arrangements comments: . 4 Adult Children. Spiritual care concerns: No Medications Home Medications Medication Instructions Recorded Confirmed Type aspirin 81 mg tablet,delayed 81 mg PO DAILY 02/27/20 01/09/22 History release (Aspir-) metoprolol tartrate 50 mg tablet See Rx Instructions .Route 05/11/21 01/09/22 Rx .COMPLEX #180 tabs eszopiclone 2 mg tablet (Lunesta) 2 mg PO QHS PRN insomnia #30 tabs 10/06/21 01/09/22 Rx fluticasone propionate 50 See Rx Instructions .Route 12/08/21 01/09/22 Rx mcg/actuation nasal .COMPLEX #16 mL spray,suspension albuterol sulfate 90 mcg/actuation See Rx Instructions .Route 01/05/22 01/09/22 Rx aerosol inhaler .COMPLEX #8.5 ea sertraline 100 mg tablet 1 tablet PO DAILY 01/06/22 01/09/22 History Breo Ellipta 100 mcg-25 mcg/dose See Rx Instructions .Route 01/07/22 01/09/22 Rx powder for inhalation (fluticasone .COMPLEX #60 ea furoate-vilanterol) acetaminophen 120 mg-codeine 12 5 ml PO Q6H PRN cough #100 mL 01/07/22 01/09/22 Rx mg/5 mL (5 mL) oral solution ipratropium 0.5 mg-albuterol 3 mg See Rx Instructions .Route 01/07/22 01/09/22 Rx (2.5 mg base)/3 mL nebulization .COMPLEX #360 mL soln methylprednisolone 4 mg tablets in See Rx Instructions PO .COMPLEX 01/07/22 01/09/22 Rx a dose pack (Medrol (Martin)) #21 ea nicotine 21 mg/24 hr daily See Rx Instructions .Route 01/07/22 01/09/22 Rx transdermal patch .COMPLEX #28 patches roflumilast 500 mcg tablet 500 mcg PO DAILY #30 tabs 01/07/22 01/09/22 Rx benzonatate 100 mg capsule 100 mg PO TID PRN cough #20 caps 01/08/22 01/09/22 Rx methylprednisolone 4 mg tablets in 4 mg PO DAILY #21 ea 01/09/22 Rx a dose pack (Methylpred DP) diazepam 5 mg tablet (Valium) 5 mg PO BID PRN anxiety #60 tabs 01/13/22 01/13/22 Rx guaifenesin 600 mg tablet, See Rx Instructions .Route 01/20/22 Rx extended release 12 hr (Mucus .COMPLEX #20 tabs Relief ER) Assessment and Plan Data The data obtained during this sleep study is adequate for interpretation. Certification This sleep study has been reviewed by a board certified sleep medicine phys
[2022-02-08 20:21] VITALS: BMI 23.6
== END 2022-01-05 06:13 | disposition home or self-care (01) ==
LOC: ANHCSM 08:07
PROVIDERS: PCP Family Medicine; Visit Provider Nurse Practitioner Family
DX: G47.00 Insomnia, unspecified (principal); G47.10 Hypersomnia, unspecified; G47.30 Sleep apnea, unspecified; J43.9 Emphysema, unspecified; G47.36 Sleep related hypoventilation in conditions classified elsewhere
CPT/HCPCS: 95810

== ENCOUNTER 2022-01-06 19:41 | Observation (INO) | payer BC, SELFPAY ==
[2022-01-06] VITALS (27 sets, daily range): BP systolic 109–140; BP diastolic 65–118; PULSE 80–114; RESP 13–27; TEMP 36.4–37.2; O2SAT 91–100; BMI 22.8
--- NOTE | ~2022-01-06 | XR_ITS ---
XR chest 1V portable DATE: 01/06/2022 20:12 INDICATION: Dyspnea TECHNIQUE: Portable upright AP chest on 01/06/2022 at 2016 hours COMPARISON: 11/19/2021 CT chest abdomen pelvis FINDINGS: The right apical lung mass reportedly lung cancer, is again noted. Bilateral hyperinflation consistent with COPD Left Port-A-Cath. No pulmonary infiltrate or consolidation, pleural effusion or pulmonary vascular congestion or pneumo thorax is detected. Normal heart size. Aortic arch calcification. Osteopenia. IMPRESSION: Right upper lobe lung mass COPD Reviewed, dictated and finalized at location A.
--- NOTE | 2022-01-06 19:52 | ECG_ITS ---
Measurements Intervals [place] Rate: 103 P: 85 AL: 134 QRS: 75 QRSD: 90 T: 78 QT: 318 QTc: 417 Interpretive Statements SINUS TACHYCARDIA INCOMPLETE RIGHT BUNDLE BRANCH BLOCK BASELINE ARTIFACT- I, III, AVR, AVL, AVF, V1-V2, V4-V6 BORDERLINE ECG Electronically Signed On 01-06-2022 20:30:38 CDT by Antione Hurtado D.O.
[2022-01-06] MEDS: IPRATROPIUM 0.5 MG/ALBUTEROL SULFATE 2.5 MG AMPUL.NEB 3 ML INHALATION (20:10)
[2022-01-06 20:20] LABS: HCO3 ABG 30.9 mmol/L (23-29); Oxygen Content ABG 14.8 %vol (16.0-22.0); Oxygen Saturation ABG 97.2 % (95-97); PCO2 ABG 46.5 mmHg (35-45); PO2 ABG 114.6 mmHg (80-90); Total Hemoglobin 10.9 g/dL (12.0-18.0); pH ABG 7.44 (7.35-7.45)
--- NOTE | 2022-01-06 20:20 | PC.NURSE ---
PT HAS HAD A 2ND BREATHING TX, SX ARE IMPROVING AT THIS TIME. AT BEDSIDE. PT IS AWAITING LAB RESULTS AT PRESENT. WILL CONTINUE TO MONITOR.
[2022-01-06 20:23] LABS: Hematocrit 31.7 % (40.0-54.0); Hemoglobin 10.4 g/dL (14.0-18.0); Immature Platelet Fraction Pct 3.4 % (1.0-7.0); Mean Corpuscular HGB Conc 32.8 g/dL (32.0-36.0); Mean Corpuscular Hemoglobin 34.3 pg (27.0-31.0); Mean Corpuscular Volume 104.6 fL (78.0-102.0); Mean Platelet Volume 10.1 fl (8.7-11.0); Platelet Count Result 69 K/mm3 (150-420); Red Blood Count 3.03 M/mm3 (4.70-6.10); Red Cell Distribution Width 15.1 % (11.6-14.4); White Blood Count 1.8 K/mm3 (4.8-10.8)
[2022-01-06 20:30] LABS: Device NASAL CANNULA; Modified Allen's Test Pass; Site Drawn RIGHT RADIAL
--- NOTE | 2022-01-06 20:33 | PC.NURSE ---
WATER PROVIDED TO PT. REMAINS AT BEDSIDE. PT DENIES ANY OTHER NEEDS OR COMPLAINTS. PT REPORTS HE FEELS BETTER NOW THAN HE HAS ALL DAY. WILL CONTINUE TO MONITOR.
[2022-01-06 20:36] LABS: Prothrombin Time 10.8 Seconds (9.50-12.10)
[2022-01-06 20:39] LABS: Band Neutrophils Percent 0 % (0-6); Basophils Absolute Manual 0.01 K/mm3 (0-0.1); Basophils Percent Manual 1 % (0-1); Eosinophils Absolute Manual 0.03 K/mm3 (0.02-0.5); Eosinophils Percent Manual 2 % (1-6); Lymphocytes Absolute Manual 0.73 K/mm3 (1.1-4.5); Lymphocytes Percent Manual 41 % (18-44); Monocytes Absolute Manual 0.46 K/mm3 (0.1-0.90); Monocytes Percent Manual 26 % (3-9); Neutrophils Absolute Manual 0.54 K/mm3 (1.3-6.7); Neutrophils Percent Manual 30 % (46-73)
[2022-01-06 20:40] LABS: Platelet Estimate Decreased (Adequate)
[2022-01-06 20:47] LABS: Alanine Aminotransferase 22 U/L (16-63); Albumin Level 3.6 g/dL (3.4-5.0); Alkaline Phosphatase 94 U/L (46-116); Anion Gap 6 mmol/L (8-16); Aspartate Amino Transferase 14 U/L (15-37); Bilirubin,Total 0.3 mg/dL (0.00-1.00); Blood Urea Nitrogen 28 mg/dL (7-18); Calcium 9.1 mg/dL (8.5-10.1); Carbon Dioxide 32 mmol/L (21-32); Chloride 103 mmol/L (98-108); Estimated CRCL calculation 45 ml/min; Estimated Glomerular Filt Rate 46; Glucose 134 mg/dL (70-99); Magnesium 1.5 mg/dL (1.8-2.4); NT Pro B Type Natriuretic Pept 30 pg/mL (0-125); Osmolality Calculated 299 mOsm/kg (285-295); Potassium 3.8 mmol/L (3.5-5.1); Sodium 141 mmol/L (136-145)
[2022-01-06] MEDS: MAGNESIUM SULF 4 GM/WATER100ML 4 GM/100 ML BAG IVPB (21:09)
--- NOTE | 2022-01-06 21:12 | PC.NURSE ---
IV MEDICATION INFUSING ORDERED WITHOUT DIFFICULTY. PT IS WATCHING TV WITHOUT DISTRESS. AT BEDSIDE. WILL CONTINUE TO MONITOR.
--- NOTE | 2022-01-06 21:27 | ED.SOB ---
HPI - SOB/Dyspnea General Chief Complaint: Shortness of Breath/Dyspnea Stated Complaint: AMB Source: patient, family and EMS Mode of arrival: EMS Limitations: no limitations History of Present Illness HPI Narrative: this is a 66-year-old gentleman with a history of COPD is current smoker with a history of lung cancer and sees oncologist and had recently had chemotherapy has a port. The history of hypertension, patient has been having difficulty breathing throughout the day and had worsened over the previous 1 to 2 hours prior to arrival called EMS patient received nebulizer treatment and 125 of Solu-Medrol, patient states that he feels much better after treatment via EMS. Otherwise there is no chest pain no fever chills no abdominal pain no flank pain no nausea vomiting no diarrhea or constipation. MD elicited complaint: shortness of breath Pertinent past history: COPD Onset (ago): hour(s) Context: anxiety Timing: constant Severity: moderate Exacerbating factors: inspiration Relieving factors: bronchodilators Known history of: COPD and other ( history of lung CA) Related Data Home Medications Medication Instructions Recorded Confirmed aspirin 81 mg tablet,delayed 81 mg PO DAILY 02/27/20 01/06/22 release (Aspir-) roflumilast 250 mcg tablet 250 mcg PO DAILY 01/06/22 01/06/22 (Daliresp) sertraline 100 mg tablet 1 tablet PO DAILY 01/06/22 01/06/22 Allergies Allergy/AdvReac Type Severity Reaction Status Date / Time No Known Allergies Allergy Verified 01/06/22 19:53 Review of Systems Review of Systems: All systems reviewed & are unremarkable except as noted in HPI and below PMFSH Past Medical History Medical History Cataracts, both eyes Colon polyp COPD (chronic obstructive pulmonary disease) Erectile dysfunction SAUL (generalized anxiety disorder) Hx of colonic polyp Hypertension Tobacco abuse Surgical History Surgical History History of appendectomy Social History Social History Smoking packs per day: 1 Smoking cigarettes per day: 20.0 Years smoked: 50 Smoking pack-years: 50.00 Smoking status: Current every day smoker Tobacco type: cigarettes Alcohol intake: never Alcohol use details: History of Alcoholism. Quit drinking 2017. Suicide attempt 2017. Substance use: never Substance use type: does not use Additional living arrangements comments: . 4 Adult Children. Spiritual care concerns: No Exam Const: General: healthy appearing and no acute distress Limitations: no limitations HENMT: Head: normal to inspection Ears: external ears normal Face and sinus: normal facial exam Mouth: Yes Normal oral and palatal mucosa present Eyes: Conjunctivae: conjunctivae normal Neck: Neck: normal visual inspection, no lymphadenopathy and no meningeal signs Chest: Chest palpation & inspection: normal inspection of the chest Resp: Effort & Inspection: normal respiratory effort Cardio: Rate: regular rate Rhythm: regular rhythm GI: GI Palp: Yes Soft to palpation Auscultation: normal bowel sounds Urinary Catheter: Urinary Catheter: patent and draining Back/Spine/Pelvis: Back: no CVA tenderness Skin: General skin exam: normal color Rashes: no rashes Wounds: no wounds Neuro: General: patient oriented x3 and moves all extremities Extrem: General: normal to inspection and no clubbing, cyanosis or edema Psych: Mental Status: mental status grossly normal Course Course Emergency Course: Reassessment of patient he is breathing much easier stable, labs and x-ray of lungs were reviewed with patient and family patient received additional dose of nebulizer treatment and IV magnesium sulfate. Vital Signs Vital signs: Vital Signs Temperature 37.2 C 01/06/22 19:41 Pulse Rate 114 H 01/06/22 19:41
--- NOTE | 2022-01-06 21:33 | PC.NURSE ---
PT IS CURRENTLY ON ROOM AIR, WITH O2 SAT 97%. WILL CONTINUE TO MONITOR.
--- NOTE | 2022-01-06 21:56 | PC.NURSE ---
pt is awaiting return call from hospitalist at this time. nad noted. will continue to monitor. no change in pt status.
--- NOTE | 2022-01-06 22:14 | PC.NURSE ---
pt is to be admitted to 205, pt and aware of plan of care. pt reports no distress without oxygen, however it made 'it easier to breathe. per erp pt placed on 2l o2.
--- NOTE | 2022-01-06 22:33 | PC.NURSE ---
pt to be admitted to 205
--- NOTE | 2022-01-06 22:50 | ADMGEN ---
This patient, Cleve Blas, was admitted to 2nd Floor Room 205-2. Patient oriented to hospital policies and general routines including ID bracelet, bed and alarms, visiting hours, pain management, procedures, bathroom and other care routines, personal items, smoking policy, room service/diet, and visiting hours. Information on how to activate the Rapid Response Team has been discussed. Patient is encouraged to report perceived risks to care and to ask questions if they do not understand what they are told or what they should do.
[2022-01-06] MEDS: methylPREDNISolone SOD SUCC 40 MG VIAL 60 MG IV PUSH (23:52)
[2022-01-06] MEDS: SODIUM CHLORIDE 0.9% IV 1,000 ML 100 ML IV CONT (23:53)
[2022-01-06] MEDS: METOPROLOL TARTRATE 50 MG TAB BY MOUTH (23:53)
[2022-01-07] VITALS (11 sets, daily range): BP systolic 116–118; BP diastolic 65–74; PULSE 71–99; RESP 16–20; TEMP 36.2–36.7; O2SAT 92–100
[2022-01-07] MEDS: IPRATROPIUM 0.5 MG/ALBUTEROL SULFATE 2.5 MG AMPUL.NEB 3 ML INHALATION ×2 (00:07→06:36)
--- NOTE | 2022-01-07 04:11 | PC.NURSE ---
Pt IV continually becomes occluded with movement of arm d/t placement in left AC, pt given options of a new IV site or an armboard. Pt request to try armboard first, armboard applied to LAC area, tolerated well, pt able to remove at will.
[2022-01-07] MEDS: methylPREDNISolone SOD SUCC 40 MG VIAL 60 MG IV PUSH ×2 (06:26→11:19)
[2022-01-07 07:35] LABS: Hematocrit 29.9 % (40.0-54.0); Immature Platelet Fraction Pct 3.9 % (1.0-7.0); Mean Corpuscular HGB Conc 33.4 g/dL (32.0-36.0); Mean Corpuscular Hemoglobin 35.8 pg (27.0-31.0); Mean Corpuscular Volume 107.2 fL (78.0-102.0); Platelet Count Result 52 K/mm3 (150-420); Red Blood Count 2.79 M/mm3 (4.70-6.10)
[2022-01-07 07:38] LABS: White Blood Count 1.3 K/mm3 (4.8-10.8)
[2022-01-07 07:47] LABS: Alanine Aminotransferase 21 U/L (16-63); Albumin Level 3.1 g/dL (3.4-5.0); Alkaline Phosphatase 87 U/L (46-116); Anion Gap 4 mmol/L (8-16); Aspartate Amino Transferase 17 U/L (15-37); Bilirubin,Total 0.2 mg/dL (0.00-1.00); Blood Urea Nitrogen 21 mg/dL (7-18); Calcium 8.5 mg/dL (8.5-10.1); Carbon Dioxide 28 mmol/L (21-32); Chloride 104 mmol/L (98-108); Estimated CRCL calculation 85 ml/min; Estimated Glomerular Filt Rate > 60; Glucose 159 mg/dL (70-99); Magnesium 1.9 mg/dL (1.8-2.4); Osmolality Calculated 288 mOsm/kg (285-295); Potassium 4.3 mmol/L (3.5-5.1); Sodium 136 mmol/L (136-145); Total Protein 6.2 g/dL (6.4-8.2)
[2022-01-07 08:37] LABS: Band Neutrophils Percent 0 % (0-6); Basophils Percent Manual 0 % (0-1); Eosinophils Percent Manual 0 % (1-6); Lymphocytes Absolute Manual 0.24 K/mm3 (1.1-4.5); Lymphocytes Percent Manual 19 % (18-44); Monocytes Absolute Manual 0.06 K/mm3 (0.1-0.90); Monocytes Percent Manual 5 % (3-9); Neutrophils Absolute Manual 0.98 K/mm3 (1.3-6.7); Neutrophils Percent Manual 76 % (46-73); Total Cells Counted 100
[2022-01-07 08:38] LABS: Platelet Estimate Decreased (Adequate)
--- NOTE | 2022-01-07 08:56 | HOMEO2EVAL ---
Evaluation was performed at [facility] Home Oxygen Evaluation RC: Home Oxygen (O2) Evaluation Start: 01/07/22 07:51 Freq: ONCE Status: Active Protocol: RPE Activity Type Activity Date Activity User E-sign Co-sign Detail Recorded Client Recorded Date Recorded By Document 01/07/22 08:30 SJJarad [id number] 01/07/22 08:56 SJB Document 01/07/22 08:34 SJB [id number] 01/07/22 08:56 SJB 01/07/22 01/07/22 08:30 08:34 Home O2 Evaluation Test Phase Resting Exercise Oxygen Delivery Room Air Room Air Pulse Oximetry (90-100 %) 93 92 Pulse Rate (60-100 beats/min) 85 99 Activity Tolerance Fair Rating of Perceived Dyspnea (PD) +2 Mild, Some Difficulty, Noticeable to the Observer Rate of Perceived Exertion (PE) 17 Very Hard Ambulation Distance (feet) 175 Ambulation Distance (meters) 53.33 Home Oxygen Evaluation Comments Will begin home Pt walked 02 eval on approx 175 ft room air on room air. pushing Sp02 stayed at wheelchair. 91% and above. Pt has a very wet non productive cough and very audible wheezing. PLB encouraged. Pt is 7-10 days post chemo and his counts are low which is normal for this time period with increased weakness. Has a fibreglass gun hand appointment this afternoon. Walked pt past his normal length of distance in everyday life and pt had to sit and discontinue walk due to weakness/sob at 175 ft. Treatment Charges O2 Evaluation - Outpatient
[2022-01-07] MEDS: NICOTINE (*PBKC) 21 MG PATCH 1 PATCH TRANSDERM (09:28)
[2022-01-07] MEDS: ASPIRIN 81 MG ENTERIC TABLET PO (09:29)
[2022-01-07] MEDS: SERTRALINE HCL 50 MG TABLET 100 MG PO (09:29)
[2022-01-07] MEDS: METOPROLOL TARTRATE 50 MG TAB BY MOUTH (09:29)
[2022-01-07] MEDS: FLUTICASONE PROPIONATE 0.05% NA SPR 16 GM BTL (*BKC) 1 SPRAY NASAL (09:29)
--- NOTE | 2022-01-07 10:59 | PM.SD2 ---
Same Day Admit/Disch: HPI History of Present Illness Chief complaint: COPD EXACERBATION Narrative: Cleve Blas is a 66 year old male that presented to the emergency room with shortness of breath and was wheezing. Patient saturations remained stable he was placed on 5 to 6 L of oxygen given a breathing treatment as well as some IV steroids and oxygen and was sent as observation to medical surgical floor observation. [facility] Past Medical History Medical History Cataracts, both eyes Colon polyp COPD (chronic obstructive pulmonary disease) Erectile dysfunction SAUL (generalized anxiety disorder) Hx of colonic polyp Hypertension Tobacco abuse Surgical History Surgical History History of appendectomy Social History Social History Smoking packs per day: 1 Smoking cigarettes per day: 20.0 Years smoked: 50 Smoking pack-years: 50.00 Smoking status: Current every day smoker Tobacco type: cigarettes Alcohol intake: never Alcohol use details: History of Alcoholism. Quit drinking 2017. Suicide attempt 2017. Substance use: never Substance use type: does not use Last use: 40 years myesha Additional living arrangements comments: . 4 Adult Children. Spiritual care concerns: No Comments At time as signature, I have reviewed and agree with nursing past medical, social, surgical and family history. Please see nursing chart for further information. There is no relevant family history pertinent to the presenting complaint. Same Day Admit/Disch: Med Pre-admit Medications Home Medications Medication Instructions Recorded Confirmed Type aspirin 81 mg tablet,delayed 81 mg PO DAILY 02/27/20 01/09/22 History release (Aspir-) metoprolol tartrate 50 mg tablet See Rx Instructions .Route 05/11/21 01/09/22 Rx .COMPLEX #180 tabs eszopiclone 2 mg tablet (Lunesta) 2 mg PO QHS PRN insomnia #30 tabs 10/06/21 01/09/22 Rx fluticasone propionate 50 See Rx Instructions .Route 12/08/21 01/09/22 Rx mcg/actuation nasal .COMPLEX #16 mL spray,suspension albuterol sulfate 90 mcg/actuation See Rx Instructions .Route 01/05/22 01/09/22 Rx aerosol inhaler .COMPLEX #8.5 ea sertraline 100 mg tablet 1 tablet PO DAILY 01/06/22 01/09/22 History Breo Ellipta 100 mcg-25 mcg/dose See Rx Instructions .Route 01/07/22 01/09/22 Rx powder for inhalation (fluticasone .COMPLEX #60 ea furoate-vilanterol) acetaminophen 120 mg-codeine 12 5 ml PO Q6H PRN cough #100 mL 01/07/22 01/09/22 Rx mg/5 mL (5 mL) oral solution ipratropium 0.5 mg-albuterol 3 mg See Rx Instructions .Route 01/07/22 01/09/22 Rx (2.5 mg base)/3 mL nebulization .COMPLEX #360 mL soln methylprednisolone 4 mg tablets in See Rx Instructions PO .COMPLEX 01/07/22 01/09/22 Rx a dose pack (Medrol (Martin)) #21 ea nicotine 21 mg/24 hr daily See Rx Instructions .Route 01/07/22 01/09/22 Rx transdermal patch .COMPLEX #28 patches roflumilast 500 mcg tablet 500 mcg PO DAILY #30 tabs 01/07/22 01/09/22 Rx azithromycin 250 mg tablet 250 mg PO DAILY #5 tabs 01/08/22 01/09/22 Rx (Zithromax) benzonatate 100 mg capsule 100 mg PO TID PRN cough #20 caps 01/08/22 01/09/22 Rx guaifenesin 600 mg tablet, 600 mg PO Q12H #20 tabs 01/08/22 01/09/22 Rx extended release 12 hr methylprednisolone 4 mg tablets in 4 mg PO DAILY #21 ea 01/09/22 Rx a dose pack (Methylpred DP) Exam Narrative: GENERAL:Well-appearing, well-nourished, and in no acute distress. HEAD:Normocephalic, atraumatic. EYES: PERRLA and EOMI. ENT: Nares clear, no rhinorrhea or epistaxis. Mucous membranes moist. NECK: Supple. CHEST: Clear to expiratory wheezes auscultation. No respiratory distres short walking distances pt unable to tolerate . HEART: Regular rate and rhythm. Normal peripheral pulses. ABDOMEN: Soft, nontender, nondiste
--- NOTE | 2022-01-07 13:41 | PC.NURSE ---
Pt discharged to home with family care. Discharge instructions given to pt. Medications reviewed. Pt has a grinder brake lining appointment today at 1430.
== END 2022-01-07 12:30 | disposition home or self-care (01) ==
LOC: CHSED 21:34 → CHS2ND 22:13
PROVIDERS: Admitting Provider Internal Medicine; Emergency Provider Emergency Medicine; PCP Family Medicine; Visit Provider Internal Medicine
DX: J44.1 Chronic obstructive pulmonary disease with (acute) exacerbation (principal); C34.90 Malignant neoplasm of unspecified part of unspecified bronchus or lung; C79.9 Secondary malignant neoplasm of unspecified site; D72.819 Decreased white blood cell count, unspecified; I10 Essential (primary) hypertension; F41.1 Generalized anxiety disorder; F17.210 Nicotine dependence, cigarettes, uncomplicated; F10.21 Alcohol dependence, in remission; Z86.010 Personal history of colon polyps; Z79.899 Other long term (current) drug therapy; Z79.82 Long term (current) use of aspirin
CPT/HCPCS: 36415; 36600; 71045; 80053; 82805; 83735; 83880; 84484; 85025; 85055; 85610; 85730; 87040; 93005; 94618; 94640; 96361; 96365; 96375; 96376; 99285; A9270; G0378; J2920; J3475; J7030

== ENCOUNTER 2022-01-07 22:31 | Inpatient (IN) | payer BC, SELFPAY ==
[2022-01-07] VITALS (8 sets, daily range): BP systolic 134–144; BP diastolic 61–65; PULSE 87–96; RESP 19–24; TEMP 36.6; O2SAT 99–100
--- NOTE | ~2022-01-07 | CT_ITS ---
EXAMINATION: CT diagnostic chest wo con DATE: 01/07/2022 23:13 INDICATION: sob, wheezing, hx of lung CA and COPD TECHNIQUE: Computed tomography (CT) of the chest was performed without intravenous contrast. Addition al 3D reconstructions utilizing coronal maximum intensity projection (MIP) were performed. Automated exposure control and iterative reconstruction technique were employed. The dose-length product was 17 1.67 mGy-cm. COMPARISON: 11/29/2021 FINDINGS: Severe emphysema. Slight decrease in size of a now 2.6 x 2.5 cm posterior right apical spiculated mas s which previously measured 2.8 x 2.7 cm in corresponding transaxial dimensions likely representing r esponse to treatment of biopsy-proven non-small cell lung cancer. No interval change in several addit ional scattered small pulmonary nodules, the 3 largest in the left upper lobe measuring from 4 mm to 7 mm in maximal diameters and which were without increased FDG uptake on PET CT dated 11/03/2019 2 cm l ikely sequela of granulomatous disease. Additional calcified left lower lobe nodule consistent with o ld granulomatous disease. No other new or enlarging pulmonary nodules identified. No pneumonia, pulmo nary edema or other new pulmonary infiltrates. No pleural effusion or pneumothorax. Heart size is nor mal. No pericardial effusion. Tip of a left internal jugular central venous port catheter at the supe rior cavoatrial junction. Unchanged low-attenuation 1.6 cm left adrenal adenoma. Visualized upper abd omen is otherwise unremarkable. No suspicious lytic or blastic bone lesions. IMPRESSION: 1. No acute cardiopulmonary disease. 2. Slight decrease in size consistent with response to treatment of a now 2.6 x 2.5 cm right upper lo be biopsy-proven non-small cell lung cancer. No evident metastatic disease. Reviewed, dictated and finalized at location A. IMPRESSION: 1. No acute cardiopulmonary disease. 2. Slight decrease in size consistent with response to treatment of a now 2.6 x 2.5 cm right upper lobe biopsy-proven non-small cell lung cancer. No evident m etastatic disease.
--- NOTE | 2022-01-07 22:55 | ECG_ITS ---
Measurements Intervals [place] Rate: 88 P: 77 MA: 121 QRS: 63 QRSD: 90 T: 72 QT: 346 QTc: 420 Interpretive Statements SINUS RHYTHM BASELINE ARTIFACT- I, II, III, AVR, AVL, AVF, V4-V6 NORMAL ECG Electronically Signed On 01-08-2022 7:23:03 CDT by Antione Hurtado D.O.
--- NOTE | 2022-01-07 23:05 | ED.SOB ---
HPI - SOB/Dyspnea General Chief Complaint: Shortness of Breath/Dyspnea Stated Complaint: AMB Time Seen by Provider: 01/07/22 22:35 Source: patient, EMS and RN notes reviewed Mode of arrival: EMS Limitations: no limitations History of Present Illness MD elicited complaint: shortness of breath and asthma attack Pertinent past history: COPD Onset (ago): day(s) (2) Context: recent illness and other (pt was seen and hospitalized 01/06/2022 with discharge and return home earlier today 01/07/2022.) Timing: constant and progressively worsening Severity: similar to previous episodes Exacerbating factors: lying flat, exertion and inspiration Relieving factors: bronchodilators and medication Known history of: COPD Associated symptoms: pain with inspiration, cough, wheezing and chest congestion Treatment prior to arrival: oxygen and bronchodilator Related Data Home Medications Medication Instructions Recorded Confirmed aspirin 81 mg tablet,delayed 81 mg PO DAILY 02/27/20 01/07/22 release (Aspir-) sertraline 100 mg tablet 1 tablet PO DAILY 01/06/22 01/07/22 Allergies Allergy/AdvReac Type Severity Reaction Status Date / Time No Known Allergies Allergy Verified 01/07/22 22:54 Review of Systems Review of Systems: All systems reviewed & are unremarkable except as noted in HPI and below Constitutional: Constitutional: Reports no additional constitutional complaints Eyes: Eyes: Reports no additional eye complaints ENT: Reports system reviewed and no additional complaints, except as documented Cardiovascular: Cardiovascular: Reports no additional cardiovascular complaints Respiratory: Respiratory: Reports no additional respiratory complaints Gastrointestinal: Gastrointestinal: Reports no additional gastrointestinal complaints Musculoskeletal: Musculoskeletal: Reports no additional musculoskeletal complaints Integumentary/Breasts: Skin/Breast: Reports system reviewed and no additional complaints, except as docu Neurologic: Reports system reviewed and no additional complaints, except as documented Psychiatric: Psychiatric: Reports no additional psychiatric complaints Endocrine: Endocrine: Reports no additional endocrine complaints Hematologic/Lymphatic: Hematologic/Lymphatic: Reports no additional hematologic/lymphatic complaints Allergic/Immunologic: Allergic/Immunologic: Reports no additional allergic/immunologic complaints [facility] Past Medical History Medical History Cataracts, both eyes Colon polyp COPD (chronic obstructive pulmonary disease) Erectile dysfunction SAUL (generalized anxiety disorder) Hx of colonic polyp Hypertension Tobacco abuse Surgical History Surgical History History of appendectomy Social History Social History Smoking packs per day: 1 Smoking cigarettes per day: 20.0 Years smoked: 50 Smoking pack-years: 50.00 Smoking status: Current every day smoker Tobacco type: cigarettes Alcohol intake: former Alcohol use details: History of Alcoholism. Quit drinking 2017. Suicide attempt 2017. Substance use: former Substance use type: does not use Last use: 40 years myesha Additional living arrangements comments: . 4 Adult Children. Spiritual care concerns: No Exam Const: General: healthy appearing and no acute distress Nutritional Appearance: well nourished Orientation/consciousness: patient oriented x3 Limitations: no limitations HENMT: Head: normal to inspection Ears: external ears normal, TM's normal bilaterally and EAC's normal General nose exam: Normal external nose present and Normal nares present Face and sinus: normal facial exam and sinuses nontender Mouth: Yes Normal oral and palatal mucosa present and Yes moist mucous membranes Teeth and gingiva: dentition normal Throat: posterior o
[2022-01-07 23:25] LABS: Base Excess ABG -0.9 mmol/L (0-2); HCO3 ABG 24.4 mmol/L (23-29); Oxygen Content ABG 14.7 %vol (16.0-22.0); Oxygen Saturation ABG 97.3 % (95-97); Oxyhemoglobin 95.6 % (94-100); PCO2 ABG 43.2 mmHg (35-45); PO2 ABG 116.3 mmHg (80-90); Total Hemoglobin 10.8 g/dL (12.0-18.0); pH ABG 7.37 (7.35-7.45)
[2022-01-07 23:26] LABS: Device NASAL CANNULA; Modified Allen's Test Pass; Site Drawn RIGHT RADIAL
[2022-01-07 23:27] LABS: Add Urine Microscopic? NO; Appearance Urine Clear (Clear); Bilirubin Urine Negative (Negative); Blood Urine Negative (Negative); Color Urine Light Yellow (Yellow); Glucose Urine UA Negative (Negative); Ketones Urine Negative (Negative); Leukocyte Esterase Ur Negative LEU/UL (Negative); Nitrate Urine Negative (Negative); Protein Urine Negative (Negative); Urobilinogen Urine 0.2 mg/dL (0.2-1.0)
[2022-01-07 23:29] LABS: Basophils Absolute Auto 0.01 K/mm3 (0.00-0.10); Basophils Percent Auto 0.2 % (0.0-1.0); Hematocrit 30.2 % (40.0-54.0); Hemoglobin 10.2 g/dL (14.0-18.0); Immature Granulocyte Absolute 0.04 K/mm3 (0.00-0.00); Immature Granulocyte Percent A 0.8 % (0.0-0.0); Immature Platelet Fraction Pct 4.1 % (1.0-7.0); Lymphocytes Absolute Auto 0.39 K/mm3 (1.10-4.50); Lymphocytes Percent Auto 7.5 % (18.0-42.0); Mean Corpuscular HGB Conc 33.8 g/dL (32.0-36.0); Mean Corpuscular Hemoglobin 35.7 pg (27.0-31.0); Mean Corpuscular Volume 105.6 fL (78.0-102.0); Mean Platelet Volume 10.1 fl (8.7-11.0); Monocytes Absolute Auto 0.72 K/mm3 (0.10-0.90); Monocytes Percent Auto 13.9 % (2.0-11.0); Neutrophils Percent Auto 77.6 % (50.0-70.0); Platelet Count Result 80 K/mm3 (150-420); Red Blood Count 2.86 M/mm3 (4.70-6.10); Red Cell Distribution Width 15.2 % (11.6-14.4); White Blood Count 5.2 K/mm3 (4.8-10.8)
[2022-01-07] MEDS: ALBUTEROL SULFATE (*SP) INHALER 2 PUFF INHALATION (23:30)
[2022-01-07 23:49] LABS: Alanine Aminotransferase 22 U/L (16-63); Albumin Level 3.7 g/dL (3.4-5.0); Alkaline Phosphatase 88 U/L (46-116); Anion Gap 8 mmol/L (8-16); Aspartate Amino Transferase 16 U/L (15-37); Bilirubin,Total 0.2 mg/dL (0.00-1.00); Blood Urea Nitrogen 24 mg/dL (7-18); Carbon Dioxide 25 mmol/L (21-32); Chloride 102 mmol/L (98-108); Estimated CRCL calculation 68 ml/min; Estimated Glomerular Filt Rate > 60; Glucose 154 mg/dL (70-99); NT Pro B Type Natriuretic Pept 286 pg/mL (0-125); Osmolality Calculated 287 mOsm/kg (285-295); Potassium 3.9 mmol/L (3.5-5.1); Sodium 135 mmol/L (136-145); Troponin I 7.4 ng/L (0.00-60.4)
[2022-01-07] MEDS: UMECLIDINIUM BROMIDE 62.5 MCG ELLIPTA 1 PUFF INHALATION (23:53)
[2022-01-08] VITALS (15 sets, daily range): BP systolic 108–124; BP diastolic 55–65; PULSE 52–107; RESP 18–28; TEMP 36.4–36.7; O2SAT 92–100; BMI 23.0
[2022-01-08] MEDS: UMECLIDINIUM BROMIDE 62.5 MCG ELLIPTA 1 PUFF INHALATION ×2 (00:08→08:25)
--- NOTE | 2022-01-08 01:31 | PC.NURSE ---
Addendum entered by Naveed Rey RN 01/08/22 02:36: pt admitted as inpatient into room 208 Original Note: pt to be admitted as an observation patient into room 208
--- NOTE | 2022-01-08 02:20 | ADMGEN ---
This patient, Cleve Blas, was admitted to 2nd Floor Room 208-2. Patient/family oriented to hospital policies and general routines including ID bracelet, bed and alarms, visiting hours, pain management, procedures, bathroom and other care routines, personal items, smoking policy, room service/diet, and visiting hours. Information on how to activate the Rapid Response Team has been discussed. Patient/Family are encouraged to report perceived risks to care and to ask questions if they do not understand what they are told or what they should do. Pt is placed on tele monitor and continuous Spo2 monitoring as per order. Pt transferred from ER cot to bed s difficulty on arrival to floor. Pt is A&O x4 and answers all questions appropriately. Call ely at pt side and encouraged to call if needed. Pt is currently on 2L NC and Spo2 is 98%. No distress noted.
--- NOTE | 2022-01-08 04:02 | PC.NURSE ---
Pt sleeping, RR even and nonlabored, no distress noted, continue c monitoring, NSR on monitor and Spo2 99% on 2L NC.
[2022-01-08 05:01] LABS: Hematocrit 26.2 % (40.0-54.0); Hemoglobin 8.7 g/dL (14.0-18.0); Immature Platelet Fraction Pct 3.3 % (1.0-7.0); Mean Corpuscular HGB Conc 33.2 g/dL (32.0-36.0); Mean Corpuscular Hemoglobin 35.1 pg (27.0-31.0); Mean Corpuscular Volume 105.6 fL (78.0-102.0); Mean Platelet Volume 9.8 fl (8.7-11.0); Platelet Count Result 63 K/mm3 (150-420); Red Blood Count 2.48 M/mm3 (4.70-6.10); Red Cell Distribution Width 15.3 % (11.6-14.4); White Blood Count 3.8 K/mm3 (4.8-10.8)
[2022-01-08 05:19] LABS: Alanine Aminotransferase 21 U/L (16-63); Albumin Level 3.2 g/dL (3.4-5.0); Alkaline Phosphatase 74 U/L (46-116); Anion Gap 6 mmol/L (8-16); Aspartate Amino Transferase 15 U/L (15-37); Bilirubin,Total 0.2 mg/dL (0.00-1.00); Blood Urea Nitrogen 20 mg/dL (7-18); Carbon Dioxide 28 mmol/L (21-32); Chloride 105 mmol/L (98-108); Estimated CRCL calculation 91 ml/min; Estimated Glomerular Filt Rate > 60; Glucose 150 mg/dL (70-99); Osmolality Calculated 293 mOsm/kg (285-295); Potassium 4.1 mmol/L (3.5-5.1); Sodium 139 mmol/L (136-145); Total Protein 5.9 g/dL (6.4-8.2)
[2022-01-08 05:48] LABS: Band Neutrophils Percent 3 % (0-6); Basophils Percent Manual 0 % (0-1); Eosinophils Percent Manual 0 % (1-6); Lymphocytes Absolute Manual 0.34 K/mm3 (1.1-4.5); Lymphocytes Percent Manual 9 % (18-44); Monocytes Absolute Manual 0.26 K/mm3 (0.1-0.90); Monocytes Percent Manual 7 % (3-9); Neutrophils Absolute Manual 3.19 K/mm3 (1.3-6.7); Neutrophils Percent Manual 81 % (46-73); Platelet Estimate Decreased (Adequate); Total Cells Counted 100
[2022-01-08] MEDS: methylPREDNISolone SOD SUCC 125 MG VIAL IV PUSH (06:06)
--- NOTE | 2022-01-08 06:10 | PC.NURSE ---
Pt sitting up in bed, awake, coughing, having some increased SOB. Spo2 noted 97%, VSS, resp called for neb tx as per order. Pt encouraged to relax and used PLB, responded well.
[2022-01-08] MEDS: IPRATROPIUM BR 0.02% INH SOLN 0.5 MG/2.5 ML VIAL INHALATION ×2 (06:25→12:26)
[2022-01-08] MEDS: ALBUTEROL SULFATE NEB 2.5 MG/3 ML INH 5 MG INHALATION ×2 (06:25→12:26)
[2022-01-08] MEDS: AZITHROMYCIN 250 MG TABLET 500 MG PO (08:26)
[2022-01-08] MEDS: NICOTINE (*PBKC) 21 MG PATCH 1 PATCH TRANSDERM (08:26)
--- NOTE | 2022-01-08 09:57 | PC.NURSE ---
Removed patient from O2 per PATHOLOGY SECRETARY order to obtain room air ABG. Patient tolerating well at this time. SPO2 at 93% on room air. Monitoring continues.
[2022-01-08 10:15] LABS: Base Excess ABG 2.1 mmol/L (0-2); Device ROOM AIR; HCO3 ABG 26.2 mmol/L (23-29); Modified Allen's Test Pass; Oxygen Content ABG 12.2 %vol (16.0-22.0); Oxygen Saturation ABG 92.9 % (95-97); Oxyhemoglobin 92.3 % (94-100); PCO2 ABG 38.8 mmHg (35-45); PO2 ABG 70.2 mmHg (80-90); Site Drawn RIGHT RADIAL; Total Hemoglobin 9.3 g/dL (12.0-18.0); pH ABG 7.45 (7.35-7.45)
--- NOTE | 2022-01-08 11:12 | PM.DS ---
DS: Admitting Diagnosis Discharge Date 01/08/2022 Admitting Diagnosis COPD exacerbation DS: Discharge Diagnosis Discharge Diagnosis (1) Acute exacerbation of chronic obstructive airways disease: Code(s): J44.1 - Chronic obstructive pulmonary disease with (acute) exacerbation Status: Acute (2) Non-small cell lung cancer (NSCLC): Qualifiers: Laterality: right Qualified Code(s): C34.91 - Malignant neoplasm of unspecified part of right bronchus or lung Code(s): C34.90 - Malignant neoplasm of unspecified part of unspecified bronchus or lung Status: Acute (3) Hypertension: Code(s): I10 - Essential (primary) hypertension Status: Acute DS: Summary Time Spent with Patient Time attestation: Total time spent providing and/or coordinating discharge services: DS: Data Data Completed and Pending Labs on day of discharge: Labs from last 24 hours 01/08/22 01/08/22 01/08/22 10:12 04:54 04:54 WBC 3.8 L RBC 2.48 L Hgb 8.7 L Hct 26.2 L MCV 105.6 H MCH 35.1 H MCHC 33.2 RDW 15.3 H Plt Count 63 L MPV 9.8 Immature Gran % (Auto) Not Reportable Neut % (Auto) Not Reportable Lymph % (Auto) Not Reportable [place] % (Auto) Not Reportable Eos % (Auto) Not Reportable Baso % (Auto) Not Reportable Lymph # (Auto) Not Reportable [place] # (Auto) Not Reportable Eos # (Auto) Not Reportable Baso # (Auto) Not Reportable Abs Immat Gran (auto) Not Reportable Absolute Neuts (auto) Not Reportable Absolute Nucleated RBC Not Reportable Total Counted 100 Neutrophils % (Manual) 81 H Band Neutrophils % 3 Lymphocytes % (Manual) 9 L Monocytes % (Manual) 7 Eosinophils % (Manual) 0 L Basophils % (Manual) 0 Nucleated RBC % Not Reportable Abs Neuts (Manual) 3.19 Abs Lymphs (Manual) 0.34 L Abs Monocytes (Manual) 0.26 Absolute Eos (Manual) 0.00 L Abs Basophils (Manual) 0.00 Platelet Estimate Decreased % Immature Plt Fraction 3.3 Puncture Site Right radial ABG pH 7.45 ABG pCO2 38.8 ABG pO2 70.2 L ABG PO2/FiO2 Ratio Not Reportable ABG HCO3 26.2 ABG O2 Saturation 92.9 L ABG O2 Content 12.2 L ABG Base Excess 2.1 H A-a Gradient Not Reportable Oxyhemoglobin 92.3 L Total Hemoglobin 9.3 L O2 Delivery Device Room air O2 Liters/Min 0.0 Sodium 139 Potassium 4.1 Chloride 105 Carbon Dioxide 28 Anion Gap 6 L BUN 20 H Creatinine 0.75 Estim Creat Clear Calc 91 Estimated GFR > 60 Glucose 150 H Calculated Osmolality 293 Calcium 9.0 Total Bilirubin 0.2 AST 15 ALT 21 Alkaline Phosphatase 74 Troponin I NT-Pro-B Natriuret Pep Total Protein 5.9 L Albumin 3.2 L Urine Color Urine Appearance Urine pH Ur Specific [place] Urine Protein Urine Glucose (UA) Urine Ketones Ur Blood (Man) Urine Nitrate Urine Bilirubin Urine Urobilinogen Leukocyte Esterase Rfl 01/07/22 01/07/22 01/07/22 23:23 23:23 23:23 WBC 5.2 RBC 2.86 L Hgb 10.2 L Hct 30.2 L MCV 105.6 H MCH 35.7 H MCHC 33.8 RDW 15.2 H Plt Count 80 L MPV 10.1 Immature Gran % (Auto) 0.8 H Neut % (Auto) 77.6 H Lymph % (Auto) 7.5 L [place] % (Auto) 13.9 H Eos % (Auto) 0.0 L Baso % (Auto) 0.2 Lymph # (Auto) 0.39 L [place] # (Auto) 0.72 Eos # (Auto) 0.00 L Baso # (Auto) 0.01 Abs Immat Gran (auto) 0.04 H Absolute Neuts (auto) 4.0 Absolute Nucleated RBC 0.00 Total Counted Neutrophils % (Manual) Band Neutrophils % Lymphocytes % (Manual) Monocytes % (Manual) Eosinophils % (Manual) Basophils % (Manual) Nucleated RBC % 0.0 Abs Neuts (Manual) Abs Lymphs (Manual) Abs Monocytes (Manual) Absolute Eos (Manual) Abs Basophils (Manual) Platelet Estimate % Immature Plt Fraction 4.1 Puncture Site Right radial
--- NOTE | 2022-01-08 11:49 | PM.SD2 ---
Same Day Admit/Disch: HPI History of Present Illness Chief complaint: COPD EXCERBATION Narrative: Cleve Blas is a 66 year old male with past medical history of right upper lung paravertebral tumor adenocarcinoma, COPD, pack-a-day smoker, patient was alcoholic quit drinking in 2017, generalized anxiety, hypertension. Patient was just discharged less than 24 hours ago. Patient states that he had a coughing spell and felt like he could not catch his breath breath so he came in to the hospital again as he wanted to make sure that he was going to be able to breathe. Patient was admitted as a 24-hour observation. Patient not requiring any oxygen taken oral antibiotics and oral steroids PMF Past Medical History Medical History Cataracts, both eyes Colon polyp COPD (chronic obstructive pulmonary disease) Erectile dysfunction SAUL (generalized anxiety disorder) Hx of colonic polyp Hypertension Tobacco abuse Surgical History Surgical History History of appendectomy Social History Social History Smoking packs per day: 1 Smoking cigarettes per day: 20.0 Years smoked: 50 Smoking pack-years: 50.00 Smoking status: Current every day smoker Tobacco type: cigarettes Alcohol intake: never Alcohol use details: History of Alcoholism. Quit drinking 2017. Suicide attempt 2017. Substance use: never Substance use type: does not use Last use: 40 years myesha Additional living arrangements comments: . 4 Adult Children. Spiritual care concerns: No Comments At time as signature, I have reviewed and agree with nursing past medical, social, surgical and family history. Please see nursing chart for further information. There is no relevant family history pertinent to the presenting complaint. Same Day Admit/Disch: Med Pre-admit Medications Home Medications Medication Instructions Recorded Confirmed Type aspirin 81 mg tablet,delayed 81 mg PO DAILY 02/27/20 01/09/22 History release (Aspir-) metoprolol tartrate 50 mg tablet See Rx Instructions .Route 05/11/21 01/09/22 Rx .COMPLEX #180 tabs eszopiclone 2 mg tablet (Lunesta) 2 mg PO QHS PRN insomnia #30 tabs 10/06/21 01/09/22 Rx fluticasone propionate 50 See Rx Instructions .Route 12/08/21 01/09/22 Rx mcg/actuation nasal .COMPLEX #16 mL spray,suspension albuterol sulfate 90 mcg/actuation See Rx Instructions .Route 01/05/22 01/09/22 Rx aerosol inhaler .COMPLEX #8.5 ea sertraline 100 mg tablet 1 tablet PO DAILY 01/06/22 01/09/22 History Breo Ellipta 100 mcg-25 mcg/dose See Rx Instructions .Route 01/07/22 01/09/22 Rx powder for inhalation (fluticasone .COMPLEX #60 ea furoate-vilanterol) acetaminophen 120 mg-codeine 12 5 ml PO Q6H PRN cough #100 mL 01/07/22 01/09/22 Rx mg/5 mL (5 mL) oral solution ipratropium 0.5 mg-albuterol 3 mg See Rx Instructions .Route 01/07/22 01/09/22 Rx (2.5 mg base)/3 mL nebulization .COMPLEX #360 mL soln methylprednisolone 4 mg tablets in See Rx Instructions PO .COMPLEX 01/07/22 01/09/22 Rx a dose pack (Medrol (Martin)) #21 ea nicotine 21 mg/24 hr daily See Rx Instructions .Route 01/07/22 01/09/22 Rx transdermal patch .COMPLEX #28 patches roflumilast 500 mcg tablet 500 mcg PO DAILY #30 tabs 01/07/22 01/09/22 Rx azithromycin 250 mg tablet 250 mg PO DAILY #5 tabs 01/08/22 01/09/22 Rx (Zithromax) benzonatate 100 mg capsule 100 mg PO TID PRN cough #20 caps 01/08/22 01/09/22 Rx guaifenesin 600 mg tablet, 600 mg PO Q12H #20 tabs 01/08/22 01/09/22 Rx extended release 12 hr methylprednisolone 4 mg tablets in 4 mg PO DAILY #21 ea 01/09/22 Rx a dose pack (Methylpred DP) Exam Narrative: GENERAL:Well-appearing, well-nourished, and in no acute distress. HEAD:Normocephalic, atraumatic. EYES: PERRLA and EOMI. ENT: Nares clear, no rhinorr
--- NOTE | 2022-01-08 13:29 | PC.NURSE ---
IV access and telemetry discontinued in preparation for discharge. Discharge instructions given to patient and patient voiced understanding.
--- NOTE | 2022-01-08 14:05 | PC.NURSE ---
Patient discharged from unit in w/c accompanied by functional tester typewriters and patient's . Both voiced understanding of discharge instructions. Personal belongings sent home with patient. Patient left facility in private vehicle.
--- NOTE | 2022-01-10 11:04 | P.PNCROSS_ITS ---
Event Note Event Note Event Note: cALLED AND DISCUSSED WITH DR FREEMAN ABOUT PATIENT COMING TO THE EMERGENCY ROOM 3 TIME ADMITTED X2 AND POSSIBLE DUE TO ANXIETY HIS SATURATION WAS WELL BUT HE DOES SEEM TO BREATH ABNORMAL AND HE HAS SCATTERED EXPIRATORY WHEEZES. I CALLED PATIENT TO ORDER HIM SOMETHING FOR ANXIETY PATIENT STATES HE HAS SOMETHING BUT HE FEEL LIKE HE IS SO SHORT OF BREATH AND IF ONLY HE HAD OXYGEN . I EXPLAINED TO PATIENT HE DOES NOT QUALIFY FOR IT FOR INSURANCE TO PAY. PATIENT INFORMS ME HE WOULD BE WILLING TO PRIVATE PAY A PHONE CALL MADE TO [facility] AND THEY WILL TAKE PRIVATE PAY. A ORDER WRITTEN TO [facility] FOR PATIENT TO HAVE OXYGEN AT 2 L . HE DOES SEEM ANXIOUS BUT HE IS UNABLE TO AMBULATE 50 FEET DUE TO SHORTNESS OF BREATH.
--- NOTE | 2022-01-11 10:48 | PC.NURSE ---
Pt states he received and understood the discharge instructions. Has no other comments.
== END 2022-01-08 14:05 | disposition home or self-care (01) | DRG 191 ==
LOC: CHSED 01-08 00:58 → CHS2ND 01-08 01:46
PROVIDERS: Nurse Practitioner Family; Admitting Provider Internal Medicine; Emergency Provider Emergency Medicine; PCP Family Medicine; Visit Provider Internal Medicine
DX: J44.1 Chronic obstructive pulmonary disease with (acute) exacerbation (principal); C34.11 Malignant neoplasm of upper lobe, right bronchus or lung; I10 Essential (primary) hypertension; F17.210 Nicotine dependence, cigarettes, uncomplicated; F10.21 Alcohol dependence, in remission; F41.1 Generalized anxiety disorder; Z86.010 Personal history of colon polyps
CPT/HCPCS: 36415; 36600; 71250; 80053; 81003; 82805; 83880; 84484; 85025; 85055; 93005; 94640; 99285; A9270; J2930

== ENCOUNTER 2022-01-09 10:00 | Emergency (ER) | payer BC, SELFPAY ==
--- NOTE | ~2022-01-09 | XR_ITS ---
EXAMINATION: XR chest 1V portable DATE: 01/09/2022 10:34 INDICATION: Shortness of breath. Lung cancer. TECHNIQUE: frontal view of the chest was obtained. COMPARISON: Chest radiograph dated 01/06/2022 and 06/21/[address] dated 01/07/2022 FINDINGS: Mass at the medial aspect of the right apex consistent with known lung cancer. Hyperexpansion of lung s with increased lucency in the upper lung zones consistent with moderate emphysema better appreciate d on prior CT. Chronic pleural parenchymal scarring at the lung bases with blunting at the costophren ic angles. Cardiomediastinal silhouette is normal with bilateral small paracardial fat pads. Left int ernal jugular central venous port catheter with distal tip at the caudal superior vena cava. IMPRESSION: 1. Emphysema and right apical mass consistent with primary bronchogenic carcinoma. No acute cardiopul monary disease. Reviewed, dictated and finalized at location A. IMPRESSION: 1. Emphysema and right apical mass consistent with primary bronchogenic carcino ma. No acute cardiopulmonary disease.
[2022-01-09 10:04] VITALS: BP 122/74; PULSE 124; RESP 28; TEMP 36.6; O2SAT 99
[2022-01-09 10:06] VITALS: BP 122/74; PULSE 123; RESP 22; TEMP 36.6; O2SAT 100
[2022-01-09 10:14] VITALS: O2SAT 100
--- NOTE | 2022-01-09 10:14 | ECG_ITS ---
Measurements Intervals [place] Rate: 111 P: 83 DE: 111 QRS: 77 QRSD: 102 T: 79 QT: 313 QTc: 427 Interpretive Statements SINUS TACHYCARDIA WITH SHORT DE INTERVAL ATRIAL PREMATURE COMPLEX CANNOT RULE OUT SEPTAL INFARCT, AGE INDETERMINATE BORDERLINE T WAVE ABNORMALITY- HIGH LATERAL LEADS ATYPICAL ECG Electronically Signed On 01-09-2022 12:57:11 CDT by Antione Hurtado D.O.
[2022-01-09 10:48] LABS: Base Excess ABG 0.5 mmol/L (0-2); HCO3 ABG 25.7 mmol/L (23-29); Oxygen Content ABG 14.8 %vol (16.0-22.0); Oxygen Saturation ABG 97.6 % (95-97); Oxyhemoglobin 96.9 % (94-100); PCO2 ABG 43.5 mmHg (35-45); PO2 ABG 131.7 mmHg (80-90); Total Hemoglobin 10.7 g/dL (12.0-18.0); pH ABG 7.39 (7.35-7.45)
[2022-01-09 10:51] LABS: Device NASAL CANNULA; Modified Allen's Test Pass; Site Drawn RIGHT RADIAL
[2022-01-09 10:57] LABS: Basophils Absolute Auto 0.01 K/mm3 (0.00-0.10); Basophils Percent Auto 0.1 % (0.0-1.0); Hematocrit 31.2 % (40.0-54.0); Hemoglobin 10.3 g/dL (14.0-18.0); Immature Granulocyte Absolute 0.12 K/mm3 (0.00-0.00); Immature Granulocyte Percent A 1.4 % (0.0-0.0); Immature Platelet Fraction Pct 3.7 % (1.0-7.0); Lymphocytes Absolute Auto 0.73 K/mm3 (1.10-4.50); Lymphocytes Percent Auto 8.5 % (18.0-42.0); Mean Corpuscular Hemoglobin 35.6 pg (27.0-31.0); Mean Platelet Volume 10.4 fl (8.7-11.0); Monocytes Absolute Auto 1.05 K/mm3 (0.10-0.90); Monocytes Percent Auto 12.2 % (2.0-11.0); Neutrophils Absolute Auto 6.7 K/mm3 (1.7-7.2); Neutrophils Percent Auto 77.8 % (50.0-70.0); Nucleated Red Blood Cells Absolute Auto 0.02 K/mm3 (0.00-0.00); Nucleated Red Blood Cells Perc 0.2 % (0-0.0); Platelet Count Result 86 K/mm3 (150-420); Red Blood Count 2.89 M/mm3 (4.70-6.10); White Blood Count 8.6 K/mm3 (4.8-10.8)
[2022-01-09 11:13] LABS: Lactic Acid Reflex 3.9 mmol/L (0.4-2.0)
[2022-01-09 11:14] LABS: Alanine Aminotransferase 25 U/L (16-63); Albumin Level 3.7 g/dL (3.4-5.0); Alkaline Phosphatase 79 U/L (46-116); Anion Gap 8 mmol/L (8-16); Aspartate Amino Transferase 13 U/L (15-37); Bilirubin,Total 0.2 mg/dL (0.00-1.00); Blood Urea Nitrogen 20 mg/dL (7-18); Calcium 9.6 mg/dL (8.5-10.1); Carbon Dioxide 30 mmol/L (21-32); Chloride 104 mmol/L (98-108); Estimated Glomerular Filt Rate > 60; Glucose 113 mg/dL (70-99); NT Pro B Type Natriuretic Pept 396 pg/mL (0-125); Osmolality Calculated 297 mOsm/kg (285-295); Potassium 3.6 mmol/L (3.5-5.1); Sodium 142 mmol/L (136-145); Total Protein 6.8 g/dL (6.4-8.2); Troponin I 7.7 ng/L (0.00-60.4)
[2022-01-09] MEDS: ALBUTEROL SULFATE (*SP) INHALER 2 PUFF INHALATION (11:26)
[2022-01-09 11:29] VITALS: PULSE 103; RESP 22; O2SAT 100
--- NOTE | 2022-01-09 11:29 | ED.SOB ---
HPI - SOB/Dyspnea General Chief Complaint: Shortness of Breath/Dyspnea Stated Complaint: ambulance Time Seen by Provider: 01/09/22 10:04 Source: patient, EMS and RN notes reviewed Mode of arrival: EMS Limitations: no limitations History of Present Illness MD elicited complaint: shortness of breath and cough Pertinent past history: COPD Onset (ago): day(s) (1) Timing: constant Severity: moderate Exacerbating factors: nothing Relieving factors: bronchodilators Known history of: COPD Associated symptoms: cough and wheezing Treatment prior to arrival: oxygen and bronchodilator Related Data Home Medications Medication Instructions Recorded Confirmed aspirin 81 mg tablet,delayed 81 mg PO DAILY 02/27/20 01/09/22 release (Aspir-) sertraline 100 mg tablet 1 tablet PO DAILY 01/06/22 01/09/22 Allergies Allergy/AdvReac Type Severity Reaction Status Date / Time No Known Allergies Allergy Verified 01/13/22 07:38 Review of Systems Review of Systems: All systems reviewed & are unremarkable except as noted in HPI and below Constitutional: Constitutional: Reports no additional constitutional complaints Eyes: Eyes: Reports no additional eye complaints ENT: Reports system reviewed and no additional complaints, except as documented Cardiovascular: Cardiovascular: Reports no additional cardiovascular complaints Respiratory: Respiratory: Reports dyspnea and Reports wheezing Gastrointestinal: Gastrointestinal: Reports no additional gastrointestinal complaints Musculoskeletal: Musculoskeletal: Reports no additional musculoskeletal complaints Integumentary/Breasts: Skin/Breast: Reports system reviewed and no additional complaints, except as docu Neurologic: Reports system reviewed and no additional complaints, except as documented Psychiatric: Psychiatric: Reports no additional psychiatric complaints Endocrine: Endocrine: Reports no additional endocrine complaints Hematologic/Lymphatic: Hematologic/Lymphatic: Reports no additional hematologic/lymphatic complaints Allergic/Immunologic: Allergic/Immunologic: Reports no additional allergic/immunologic complaints [facility] Past Medical History Medical History Cataracts, both eyes Colon polyp COPD (chronic obstructive pulmonary disease) Erectile dysfunction SAUL (generalized anxiety disorder) Hx of colonic polyp Hypertension Tobacco abuse Surgical History Surgical History History of appendectomy Social History Social History Smoking packs per day: 1 Smoking cigarettes per day: 20.0 Years smoked: 50 Smoking pack-years: 50.00 Smoking status: Current every day smoker Tobacco type: cigarettes Alcohol intake: never Alcohol use details: History of Alcoholism. Quit drinking 2017. Suicide attempt 2017. Substance use: never Substance use type: does not use Last use: 40 years myesha Additional living arrangements comments: . 4 Adult Children. Spiritual care concerns: No Exam Const: General: diaphoretic Nutritional Appearance: well nourished Orientation/consciousness: patient oriented x3 Limitations: no limitations HENMT: Head: normal to inspection Ears: external ears normal, TM's normal bilaterally and EAC's normal General nose exam: Normal external nose present and Normal nares present Face and sinus: normal facial exam and sinuses nontender Mouth: Yes Normal oral and palatal mucosa present and Yes moist mucous membranes Teeth and gingiva: dentition normal Throat: posterior oropharynx normal Eyes: Conjunctivae: conjunctivae normal Pupils: Equal, round and reactive pupils present EOM: EOMs intact bilaterally Neck: Neck: normal visual inspection, no lymphadenopathy and no meningeal signs Chest: Chest palpation & inspection: normal inspection of the chest Resp: Ef
[2022-01-09 11:33] VITALS: PULSE 104; RESP 24; O2SAT 100
[2022-01-09] MEDS: UMECLIDINIUM BROMIDE 62.5 MCG ELLIPTA 1 PUFF INHALATION (11:35)
--- NOTE | 2022-01-09 11:56 | PC.NURSE ---
patient ripped out IV on accident, erp is aware and stated to cancel IVF.
[2022-01-09 12:11] VITALS: BP 132/75; PULSE 98; RESP 18; TEMP 36.4; O2SAT 100
[2022-01-09 12:13] LABS: Influenza A QL RT-PCR Negative (Negative); Influenza B QL RT-PCR Negative (Negative); SARS-CoV-2 RNA PCR Negative (Negative)
== END 2022-01-09 12:21 | disposition home or self-care (01) ==
PROVIDERS: Emergency Provider Emergency Medicine; PCP Family Medicine
DX: J44.9 Chronic obstructive pulmonary disease, unspecified (principal); Z20.822 Contact with and (suspected) exposure to COVID-19; F17.200 Nicotine dependence, unspecified, uncomplicated
CPT/HCPCS: 36415; 36600; 71045; 80053; 82805; 83605; 83880; 84484; 85025; 85055; 87502; 93005; 94640; 99284; A9270; C9803; U0003; U0005

== ENCOUNTER 2022-01-26 08:03 | Outpatient (CLI) | payer BC, SELFPAY ==
--- NOTE | ~2022-01-26 | CT_ITS ---
EXAMINATION: CT diagnostic chest w con DATE: 01/26/2022 08:44 INDICATION: Lung cancer TECHNIQUE: Transaxial computed tomographic images of the chest were obtained after the administration of 75 cc of Omnipaque 350 intravenous contrast. The dose-length product (DLP) was 190.20 mGy-cm. Ite rative reconstruction was used. COMPARISON: 01/07/2022, 11/02/2021 FINDINGS: There is severe emphysema. A 3 cm nodule in the posteromedial aspect of the right upper lob e is slightly decreased in size. There are stable nodules of the left upper lobe. No new pulmonary no dule is identified. The lungs are free of acute opacities. No pleural effusion or pneumothorax. A lef t internal jugular Port-A-Cath ends with its tip in the distal superior vena cava. No pathologically enlarged thoracic lymph nodes are identified. The heart size is normal. There is a stable adenoma of the left adrenal gland. There is mild thoracic spondylosis. IMPRESSION: 1. 3 cm mass of the right upper lobe, stable to slightly decreased in size. 2. Severe emphysema. Reviewed, dictated and finalized at location B.
== END 2022-01-26 08:04 | disposition home or self-care (01) ==
LOC: CHSIMG 08:04
PROVIDERS: PCP Family Medicine; Visit Provider Internal Medicine Hematology & Oncology
DX: C34.90 Malignant neoplasm of unspecified part of unspecified bronchus or lung (principal)
CPT/HCPCS: 71260; Q9967

== ENCOUNTER 2022-02-23 08:37 | Outpatient (CLI) | payer BC, SELFPAY ==
--- NOTE | 2022-03-28 15:56 | WPDSLEEPSTUD ---
Sleep Study Date of Study: 02/23/22 Ordering Provider: Duran Ruiz APRN Interpreting Physician: Nimco Chavez DO Sleep Study Type: BiPAP Titration Height: 1.8 m Weight: 71.668 kg Body Mass Index: 22.0 Neck Circumference (inches): 16 [place]: 10 Reason for Sleep Study The patient had a polysomnogram on 01/04/2022 at [facility] that showed an AHI of 7 with desaturation down to 74%. Sleep History Cleve Blas is a 66 year old man with difficulty getting to sleep and staying asleep.? He is excessively sleepy in the day.? He constantly awakens from sleep feeling short of breath.? He frequently wakes at night with heartburn, belching and coughing. He occasionally snores. Rarely does he snores loudly enough that others complain about it.? He frequently wakes at night gasping for breath. He rarely sweats excessively at night or notices his heart pounding or beating irregularly at night.? He occasionally falls asleep in the day. He does not fall asleep involuntarily or fall asleep while driving.? He does not have loss of muscle tone with strong emotion.? He rarely has daytime difficulties due to excessive sleepiness.? He does not feel paralyzed on waking or falling asleep or have vivid dreamlike scenes upon awakening or falling asleep.? He does not feel afraid to go to sleep.? He rarely has nightmares.? He rarely remembers his dreams.? He frequently has racing thoughts through his mind.? He rarely feels sad depressed or anxious.? He does not have muscular tension.? He does not notice parts of his body jerking.? He occasionally kicks during the night.? He frequently has crawling and aching aching feelings in the legs and leg pain during the night.? He rarely has morning jaw pain.? He does not grind his teeth during sleep.? He occasionally is bothered by pain during the day and occasionally awakened by pain during the night.? He frequently wakes up feeling stiff in the morning with sore or achy muscles and occasionally wakes up with pain in the neck and spine.? He has fatigue and insomnia. Normal bedtime is 7:00 p.m. taking an hour to fall asleep, typically waking 4-5 times during the night for 30 minutes at a time.? He wakes at 6:00 a.m.? He estimates getting between 8 and 9 hours of sleep at night.? His weekend schedule is the same.? He takes naps during the day.? A short nap is not refreshing.? He is usually drowsy for 3 hours after waking.? He feels better in the morning compared to other times of day. Habits:? Tobacco 1 pack a day.? He consumes caffeine.? No alcohol or recreational drugs. [facility] Past Medical History Medical History Cataracts, both eyes Colon polyp COPD (chronic obstructive pulmonary disease) Erectile dysfunction SAUL (generalized anxiety disorder) Hx of colonic polyp Hypertension Tobacco abuse Surgical History Surgical History History of appendectomy Social History Social History Smoking packs per day: 1 Smoking cigarettes per day: 20.0 Years smoked: 50 Smoking pack-years: 50.00 Smoking status: Current every day smoker Tobacco type: cigarettes Alcohol intake: never Alcohol use details: History of Alcoholism. Quit drinking 2017. Suicide attempt 2017. Substance use: never Substance use type: does not use Last use: 40 years myesha Additional living arrangements comments: . 4 Adult Children. Spiritual care concerns: No Medications Home Medications Medication Instructions Recorded Confirmed Type aspirin 81 mg tablet,delayed 81 mg PO DAILY 02/27/20 03/24/22 History release (Aspir-) eszopiclone 2 mg tablet (Lunesta) 2 mg PO QHS PRN insomnia #30 tabs 10/06/21 03/24/22 Rx fluticasone propionate 50 See Rx Instructions .Route 12/08/21 03/24/22 Rx mcg/actuation nasal .COMPLEX #16 mL spray,suspension
[2022-03-28 16:08] VITALS: BMI 22.0
== END 2022-02-24 06:03 | disposition home or self-care (01) ==
LOC: ANHCSM 08:38
PROVIDERS: PCP Family Medicine; Visit Provider Nurse Practitioner Family
DX: J43.9 Emphysema, unspecified (principal); G47.36 Sleep related hypoventilation in conditions classified elsewhere; G47.33 Obstructive sleep apnea (adult) (pediatric); G47.61 Periodic limb movement disorder
CPT/HCPCS: 95811

== ENCOUNTER 2022-02-24 09:24 | Outpatient (CLI) | payer BC, SELFPAY ==
[2022-02-24 09:40] VITALS: BP 110/59; PULSE 60; RESP 14; TEMP 36.4; O2SAT 98
[2022-02-24 09:43] LABS: Basophils Absolute Auto 0.04 K/mm3 (0.00-0.10); Basophils Percent Auto 0.6 % (0.0-1.0); Eosinophils Absolute Auto 0.12 K/mm3 (0.02-0.50); Eosinophils Percent Auto 1.7 % (1.0-6.0); Hematocrit 35.9 % (40.0-54.0); Hemoglobin 11.5 g/dL (14.0-18.0); Immature Granulocyte Absolute 0.02 K/mm3 (0.00-0.00); Immature Granulocyte Percent A 0.3 % (0.0-0.0); Lymphocytes Absolute Auto 1.04 K/mm3 (1.10-4.50); Lymphocytes Percent Auto 14.3 % (18.0-42.0); Mean Corpuscular Hemoglobin 34.7 pg (27.0-31.0); Mean Corpuscular Volume 108.5 fL (78.0-102.0); Mean Platelet Volume 9.6 fl (8.7-11.0); Monocytes Absolute Auto 0.76 K/mm3 (0.10-0.90); Monocytes Percent Auto 10.5 % (2.0-11.0); Neutrophils Absolute Auto 5.3 K/mm3 (1.7-7.2); Neutrophils Percent Auto 72.6 % (50.0-70.0); Platelet Count Result 186 K/mm3 (150-420); Red Blood Count 3.31 M/mm3 (4.70-6.10); Red Cell Distribution Width 14.6 % (11.6-14.4); White Blood Count 7.3 K/mm3 (4.8-10.8)
[2022-02-24 09:44] VITALS: BMI 22.1
[2022-02-24] MEDS: DURVALUMAB IVPB (10:05)
[2022-02-24] MEDS: SODIUM CHLORIDE 0.9% IVPB (10:05)
[2022-02-24 10:16] LABS: Alanine Aminotransferase 19 U/L (16-63); Albumin Level 3.6 g/dL (3.4-5.0); Alkaline Phosphatase 95 U/L (46-116); Anion Gap 4 mmol/L (8-16); Aspartate Amino Transferase 15 U/L (15-37); Bilirubin,Total 0.3 mg/dL (0.00-1.00); Blood Urea Nitrogen 18 mg/dL (7-18); Calcium 9.3 mg/dL (8.5-10.1); Carbon Dioxide 29 mmol/L (21-32); Chloride 100 mmol/L (98-108); Estimated CRCL calculation 87 ml/min; Estimated Glomerular Filt Rate > 60; Glucose 100 mg/dL (70-99); Osmolality Calculated 277 mOsm/kg (285-295); Potassium 3.8 mmol/L (3.5-5.1); Sodium 133 mmol/L (136-145); Thyroid Stimulating Hormone 0.54 uIU/mL (0.36-3.74); Total Protein 6.5 g/dL (6.4-8.2)
--- NOTE | 2022-02-24 10:56 | PC.NURSE ---
Patient here for #1 Chemo IV Durvalumab. Education given. All questions/concerns answered. Labs drawn/reviewed/Ok'd. IV Chemo regimen administered. SEE MAR. Tolerated well. Safe exit of hospital. Will return 2021 Thur. at 0930 for #2 chemo.
[2022-02-24] MEDS: HEPARIN SODIUM LOCK FLUSH 500 UNITS/5 ML SYRINGE IV PUSH (11:02)
[2022-02-24] MEDS: HEPARIN SODIUM LOCK FLUSH 500 UNITS/5 ML SYRINGE (11:10)
[2022-02-27 05:46] LABS: Cortisol Random 23.8 mcg/dL (***)
== END 2022-02-24 09:25 | disposition home or self-care (01) ==
LOC: CHSTREATRM 09:26
PROVIDERS: PCP Family Medicine; Visit Provider Internal Medicine Hematology & Oncology
DX: Z51.11 Encounter for antineoplastic chemotherapy (principal); C34.11 Malignant neoplasm of upper lobe, right bronchus or lung; Z79.899 Other long term (current) drug therapy
CPT/HCPCS: 36415; 80053; 82533; 84443; 85025; 96413; J7050; J9173

== ENCOUNTER 2022-03-24 09:19 | Outpatient (CLI) | payer BC, SELFPAY ==
[2022-03-24 09:41] LABS: Basophils Absolute Auto 0.03 K/mm3 (0.00-0.10); Basophils Percent Auto 0.4 % (0.0-1.0); Eosinophils Absolute Auto 0.12 K/mm3 (0.02-0.50); Eosinophils Percent Auto 1.7 % (1.0-6.0); Hematocrit 39.4 % (40.0-54.0); Hemoglobin 12.8 g/dL (14.0-18.0); Immature Granulocyte Absolute 0.02 K/mm3 (0.00-0.00); Immature Granulocyte Percent A 0.3 % (0.0-0.0); Lymphocytes Absolute Auto 1.22 K/mm3 (1.10-4.50); Mean Corpuscular HGB Conc 32.5 g/dL (32.0-36.0); Mean Corpuscular Hemoglobin 34.6 pg (27.0-31.0); Mean Corpuscular Volume 106.5 fL (78.0-102.0); Mean Platelet Volume 9.6 fl (8.7-11.0); Monocytes Percent Auto 9.7 % (2.0-11.0); Neutrophils Absolute Auto 5.1 K/mm3 (1.7-7.2); Neutrophils Percent Auto 70.9 % (50.0-70.0); Platelet Count Result 180 K/mm3 (150-420); Red Cell Distribution Width 13.6 % (11.6-14.4); White Blood Count 7.2 K/mm3 (4.8-10.8)
[2022-03-24 09:43] VITALS: BP 112/63; PULSE 72; RESP 16; TEMP 36.1; O2SAT 98
[2022-03-24 09:44] VITALS: BMI 22.1
[2022-03-24 10:05] LABS: Alanine Aminotransferase 19 U/L (16-63); Albumin Level 3.9 g/dL (3.4-5.0); Alkaline Phosphatase 95 U/L (46-116); Anion Gap 7 mmol/L (8-16); Aspartate Amino Transferase 14 U/L (15-37); Bilirubin,Total 0.4 mg/dL (0.00-1.00); Blood Urea Nitrogen 17 mg/dL (7-18); Calcium 9.4 mg/dL (8.5-10.1); Carbon Dioxide 31 mmol/L (21-32); Chloride 98 mmol/L (98-108); Estimated CRCL calculation 90 ml/min; Estimated Glomerular Filt Rate > 60; Glucose 116 mg/dL (70-99); Osmolality Calculated 284 mOsm/kg (285-295); Potassium 4.3 mmol/L (3.5-5.1); Sodium 136 mmol/L (136-145); Total Protein 6.9 g/dL (6.4-8.2)
[2022-03-24] MEDS: SODIUM CHLORIDE 0.9% IVPB (10:15)
[2022-03-24] MEDS: DURVALUMAB IVPB (10:15)
--- NOTE | 2022-03-24 11:09 | PC.NURSE ---
Patient here for chemo Durvalumab #2 infusion q 4 weeks. Education given. No concerns voiced. Labs drawn/reviewed/ok'd. IV Durvalumab administered. SEE MAR. Tolerated well. Safe exit of hospital. Will return 2021 at 0930.
[2022-03-24] MEDS: HEPARIN SODIUM LOCK FLUSH 500 UNITS/5 ML SYRINGE IV PUSH (11:20)
== END 2022-03-24 09:20 | disposition home or self-care (01) ==
LOC: CHSTREATRM 09:21
PROVIDERS: PCP Family Medicine; Visit Provider Internal Medicine Hematology & Oncology
DX: Z51.11 Encounter for antineoplastic chemotherapy (principal); C34.11 Malignant neoplasm of upper lobe, right bronchus or lung; Z79.899 Other long term (current) drug therapy
CPT/HCPCS: 36415; 80053; 82533; 84443; 85025; 96413; J7050; J9173

== ENCOUNTER 2022-04-01 08:53 | Outpatient (CLI) | payer BC, SELFPAY ==
[2022-04-01 09:40] LABS: Ferritin 277 ng/mL (26-388)
== END 2022-04-01 08:54 | disposition home or self-care (01) ==
LOC: CHSLAB 08:55
PROVIDERS: PCP Nurse Practitioner Family; Visit Provider Nurse Practitioner Family
DX: G47.61 Periodic limb movement disorder (principal); M25.59 Pain in other specified joint
CPT/HCPCS: 36415; 82728

== ENCOUNTER 2022-04-14 08:09 | Outpatient (CLI) | payer BC, SELFPAY ==
--- NOTE | ~2022-04-14 | CT_ITS ---
EXAMINATION: CT chest abdomen pelvis w con DATE: 04/14/2022 08:59 INDICATION: Non-small cell lung cancer. TECHNIQUE: Computed tomography (CT) of the chest, abdomen, and pelvis was performed with 100 mL Omnip aque 350 intravenous contrast. Automated exposure control and iterative reconstruction technique were employed. The dose-length product was 475.02 mGy-cm. COMPARISON: Chest CT 01/26/2022 FINDINGS: CHEST CT: There is severe emphysema. There is a 2.8 x 2.1 cm nodule in right lung upper lobe, stable from 2021. There is mild scarring in left upper lobe. No pleural effusion. There is a left internal jugula r port with tip in right atrium. The heart size is normal. No pericardial effusion. There are no path ologically enlarged lymph nodes. There is mild thoracic spondylosis. ABDOMEN/PELVIS CT: The liver, gallbladder, spleen, pancreas, adrenal glands are normal. There is cortical thinning of th e kidneys. There are no dilated loops of bowel. There are changes of appendectomy. The prostate is mo derately enlarged. There are no pathologically enlarged lymph nodes. There is no free intraperitoneal fluid. There is a benign bone island in left ilium. There is mild lumbar spondylosis. IMPRESSION: 1. 2.8 x 2.1 cm nodule in right lung upper lobe, stable from 01/26/2022, consistent with primary bronc hogenic carcinoma. Reviewed, dictated and finalized at location A. IMPRESSION: 1. 2.8 x 2.1 cm nodule in right lung upper lobe, stable from 01/26/2022, consist ent with primary bronchogenic carcinoma.
== END 2022-04-14 08:10 | disposition home or self-care (01) ==
LOC: CHSIMG 08:10
PROVIDERS: PCP Family Medicine; Visit Provider Internal Medicine Hematology & Oncology
DX: C34.90 Malignant neoplasm of unspecified part of unspecified bronchus or lung (principal)
CPT/HCPCS: 71260; 74177; Q9967

== ENCOUNTER 2022-04-21 09:19 | Outpatient (CLI) | payer BC, SELFPAY ==
[2022-04-21 09:43] LABS: Basophils Absolute Auto 0.04 K/mm3 (0.00-0.10); Basophils Percent Auto 0.7 % (0.0-1.0); Eosinophils Absolute Auto 0.09 K/mm3 (0.02-0.50); Eosinophils Percent Auto 1.5 % (1.0-6.0); Hematocrit 39.6 % (40.0-54.0); Hemoglobin 12.9 g/dL (14.0-18.0); Immature Granulocyte Absolute 0.02 K/mm3 (0.00-0.00); Immature Granulocyte Percent A 0.3 % (0.0-0.0); Lymphocytes Absolute Auto 0.97 K/mm3 (1.10-4.50); Lymphocytes Percent Auto 15.8 % (18.0-42.0); Mean Corpuscular HGB Conc 32.6 g/dL (32.0-36.0); Mean Corpuscular Hemoglobin 34.1 pg (27.0-31.0); Mean Corpuscular Volume 104.8 fL (78.0-102.0); Mean Platelet Volume 9.9 fl (8.7-11.0); Monocytes Percent Auto 9.8 % (2.0-11.0); Neutrophils Absolute Auto 4.4 K/mm3 (1.7-7.2); Neutrophils Percent Auto 71.9 % (50.0-70.0); Platelet Count Result 169 K/mm3 (150-420); Red Blood Count 3.78 M/mm3 (4.70-6.10); Red Cell Distribution Width 12.5 % (11.6-14.4); White Blood Count 6.1 K/mm3 (4.8-10.8)
--- NOTE | 2022-04-21 09:46 | PC.NURSE ---
Pt to outpatient infusion amb per self. A&Ox3. Up in chair. Plan of care discussed. Pt has no questions, concerns or complaints. Oriented to area, call ely in reach. Reminded to make needs known.
[2022-04-21 09:58] VITALS: BP 110/59; PULSE 81; RESP 20; TEMP 35.9; O2SAT 98
[2022-04-21 10:18] LABS: Alanine Aminotransferase 21 U/L (16-63); Albumin Level 3.7 g/dL (3.4-5.0); Alkaline Phosphatase 92 U/L (46-116); Anion Gap 4 mmol/L (8-16); Aspartate Amino Transferase 14 U/L (15-37); Bilirubin,Total 0.3 mg/dL (0.00-1.00); Blood Urea Nitrogen 13 mg/dL (7-18); Calcium 9.2 mg/dL (8.5-10.1); Carbon Dioxide 34 mmol/L (21-32); Chloride 101 mmol/L (98-108); Estimated Glomerular Filt Rate > 60; Glucose 118 mg/dL (70-99); Osmolality Calculated 289 mOsm/kg (285-295); Sodium 139 mmol/L (136-145); Thyroid Stimulating Hormone 0.98 uIU/mL (0.36-3.74); Total Protein 6.9 g/dL (6.4-8.2)
[2022-04-21] MEDS: DURVALUMAB IVPB (10:48)
[2022-04-21] MEDS: SODIUM CHLORIDE 0.9% IVPB (10:48)
[2022-04-21] MEDS: SODIUM CHLORIDE 0.9% IV 250 ML 10 ML IVPB (10:49)
[2022-04-21] MEDS: HEPARIN SODIUM LOCK FLUSH 500 UNITS/5 ML SYRINGE IV PUSH (11:52)
--- NOTE | 2022-04-21 11:57 | PC.NURSE ---
Medications administered as ordered. Pt tolerated well. Has no questions or concerns. Discharged to home amb per self.
[2022-04-28 20:53] LABS: Cortisol Random 12.2 mcg/dL (***)
== END 2022-04-21 09:20 | disposition home or self-care (01) ==
LOC: CHSTREATRM 09:22
PROVIDERS: PCP Family Medicine; Visit Provider Internal Medicine Hematology & Oncology
DX: Z51.11 Encounter for antineoplastic chemotherapy (principal); C34.11 Malignant neoplasm of upper lobe, right bronchus or lung; Z79.899 Other long term (current) drug therapy
CPT/HCPCS: 36415; 36592; 80053; 82533; 84443; 85025; 96413; J7050; J9173

== ENCOUNTER 2022-06-04 12:52 | Emergency (ER) | payer BC, SELFPAY ==
[2022-06-04] VITALS (19 sets, daily range): BP systolic 106–126; BP diastolic 61–72; PULSE 82–111; RESP 17–24; TEMP 36.1–36.9; O2SAT 95–100
--- NOTE | ~2022-06-04 | CT_ITS ---
EXAMINATION: CTA chest PE protocol DATE: 06/04/2022 14:22 INDICATION: shortness of breath with elevated D-dimer TECHNIQUE: Computed tomography angiography (CTA) of the chest was performed with 100 mL Omnipaque-350 intravenous contrast timed to evaluate the pulmonary arteries. Coronal maximum intensity projection 3D-reconstructions were created by the technologist. The dose-length product (DLP) was 262.54 mGy-cm. Automated exposure control and iterative reconstruction technique were employed. COMPARISON: 04/14/2022. FINDINGS: Lung parenchyma and airways: Biapical scarring. Right upper lobe pleural-based mass with pleural retr action, similar in size. Emphysematous change. Pleura: Unremarkable. Thoracic inlet, axillae and chest wall: Bilateral gynecomastia. Left IJ central line terminates in th e distal SVC. Thoracic aorta: Normal. Mediastinum: Normal. Heart and pericardium: Normal. Coronary artery calcifications: Mild. Upper abdomen: Bilateral adrenal thickening likely due to hyperplasia. Bones: No acute osseous finding. Pulmonary arteries: Study quality: Adequate enhancement in the main pulmonary artery. Suboptimal enha ncement in the more distal pulmonary arteries. Study is therefore limited by the poor flow in the sony n pulmonary arteries and distal pulmonary arteries (possibly due to pulmonary arterial hypertension a nd/or contrast phase) as well as central beam hardening artifact. No pulmonary emboli detected. IMPRESSION: Limited study, as detailed above. No definite CT evidence of acute pulmonary embolus. Right upper lob e mass. Emphysematous change. Adrenal hyperplasia. Reviewed, dictated and finalized at location K. 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 No definite CT evidence of acute pulmonary em bolus. Right upper lobe mass. Emphysematous change. Adrenal hyperplasia.
--- NOTE | ~2022-06-04 | XR_ITS ---
XR chest 1V portable 06/04/2022 13:35 Indication: Shortness of breath Procedure: AP portable chest Comparison: Comparison to multiple prior studies sequentially, with oldest reviewed study dated 06/03. Findings: Heart size normal. Central venous catheter tip in the SVC. The lungs are hyperinflated whic h is consistent with, but not diagnostic of chronic obstructive pulmonary disease. No focal air space disease, pulmonary edema, pleural effusion or suspected pneumothorax. No acute osseous abnormality. Right upper lobe mass is unchanged allowing for differences of technique. Impression: 1: No acute cardiopulmonary disease. 2: Right upper lobe mass, consistent with bronchogenic carcinoma. This is unchanged from recent CT d ated 04/14/2022 allowing for differences of technique Reviewed, dictated and finalized at location A. TRY FARM LABORER Impression: 1: No acute cardiopulmonary disease. 2: Right upper lobe mass, consistent with bronchogenic carcinoma. This is unch anged from recent CT dated 04/14/2022 allowing for differences of technique
--- NOTE | 2022-06-04 13:11 | ECG_ITS ---
Measurements Intervals [place] Rate: 104 P: 81 RI: 118 QRS: 35 QRSD: 89 T: 79 QT: 316 QTc: 416 Interpretive Statements SINUS TACHYCARDIA WITH SHORT RI INTERVAL BASELINE ARTIFACT INDETERMINATE AXIS CANNOT RULE OUT SEPTAL MYOCARDIAL INFARCTION , PROBABLY OLD ABNORMAL ECG COMPARED TO ECG 01/09/2022 10:37:03 NO SIGNIFICANT CHANGES Electronically Signed On 06-04-2022 13:59:02 NUT SHELLER by Wayne Gallo M.D.
[2022-06-04] MEDS: IPRATROPIUM 0.5 MG/ALBUTEROL SULFATE 2.5 MG AMPUL.NEB 3 ML INHALATION (13:28)
[2022-06-04 13:30] LABS: Basophils Absolute Auto 0.04 K/mm3 (0.00-0.10); Basophils Percent Auto 0.5 % (0.0-1.0); Eosinophils Absolute Auto 0.05 K/mm3 (0.02-0.50); Eosinophils Percent Auto 0.6 % (1.0-6.0); Hematocrit 42.6 % (40.0-54.0); Hemoglobin 14.2 g/dL (14.0-18.0); Immature Granulocyte Absolute 0.03 K/mm3 (0.00-0.00); Immature Granulocyte Percent A 0.4 % (0.0-0.0); Lymphocytes Absolute Auto 0.79 K/mm3 (1.10-4.50); Lymphocytes Percent Auto 9.9 % (18.0-42.0); Mean Corpuscular HGB Conc 33.3 g/dL (32.0-36.0); Mean Corpuscular Hemoglobin 33.3 pg (27.0-31.0); Mean Corpuscular Volume 99.8 fL (78.0-102.0); Mean Platelet Volume 9.6 fl (8.7-11.0); Monocytes Absolute Auto 0.64 K/mm3 (0.10-0.90); Neutrophils Absolute Auto 6.5 K/mm3 (1.7-7.2); Neutrophils Percent Auto 80.6 % (50.0-70.0); Platelet Count Result 173 K/mm3 (150-420); Red Blood Count 4.27 M/mm3 (4.70-6.10); Red Cell Distribution Width 13.2 % (11.6-14.4)
[2022-06-04 13:44] LABS: Partial Thromboplastin Time 29.3 SEC (23.90-30.70); Prothrombin Time 10.9 Seconds (9.50-12.10)
[2022-06-04 13:46] LABS: D Dimer 0.96 mg/L (0.19-0.50)
[2022-06-04 13:49] LABS: Alanine Aminotransferase 27 U/L (16-63); Albumin Level 4.1 g/dL (3.4-5.0); Alkaline Phosphatase 89 U/L (46-116); Anion Gap 6 mmol/L (8-16); Aspartate Amino Transferase 20 U/L (15-37); Bilirubin,Total 0.4 mg/dL (0.00-1.00); Blood Urea Nitrogen 20 mg/dL (7-18); Calcium 9.8 mg/dL (8.5-10.1); Carbon Dioxide 33 mmol/L (21-32); Chloride 102 mmol/L (98-108); Estimated Glomerular Filt Rate > 60; Glucose 108 mg/dL (70-99); Magnesium 1.8 mg/dL (1.8-2.4); NT Pro B Type Natriuretic Pept 39 pg/mL (0-125); Osmolality Calculated 295 mOsm/kg (285-295); Potassium 4.3 mmol/L (3.5-5.1); Sodium 141 mmol/L (136-145); Total Protein 7.4 g/dL (6.4-8.2); Troponin I 23.5 ng/L (0.00-60.4)
[2022-06-04] MEDS: methylPREDNISolone SOD SUCC 125 MG VIAL IV PUSH (13:56)
[2022-06-04] MEDS: SODIUM CHLORIDE 0.9% IV 500 ML 999 ML IV CONT (13:56)
[2022-06-04 14:05] LABS: Influenza A QL RT-PCR Negative (Negative); Influenza B QL RT-PCR Negative (Negative); SARS-CoV-2 RNA PCR Negative (Negative)
--- NOTE | 2022-06-04 14:54 | PC.NURSE ---
resting per cot. call ely in reach, pt states feeling alot better . at bedside . awaiting ct results
--- NOTE | 2022-06-04 15:04 | ED.SOB ---
HPI - SOB/Dyspnea General Chief Complaint: Shortness of Breath/Dyspnea Stated Complaint: trouble breathing Time Seen by Provider: 06/04/22 12:56 Source: patient and family Mode of arrival: ambulatory Limitations: no limitations History of Present Illness HPI Narrative: this is a 66-year-old gentleman with history of COPD diagnosed with right upper lung cancer currently sees Oncology/pulmonary currently had chemo and radiation therapy presents with increased shortness of breath over the last 3 days worsened today has 2L of O2 at home his O2 sats were stable at 97%, there was a mild cough that was nonproductive with no chest pain no fever chills. MD elicited complaint: shortness of breath Pertinent past history: COPD and other ( history of lung cancer) Onset (ago): day(s) Context: recent illness Related Data Home Medications Medication Instructions Recorded Confirmed aspirin 81 mg tablet,delayed 81 mg PO DAILY 02/27/20 05/13/22 release (Aspir-) sertraline 100 mg tablet 1 tablet PO DAILY 01/06/22 05/13/22 Allergies Allergy/AdvReac Type Severity Reaction Status Date / Time No Known Allergies Allergy Verified 05/13/22 09:53 Review of Systems Review of Systems: All systems reviewed & are unremarkable except as noted in HPI and below PMFSH Past Medical History Medical History Cataracts, both eyes Colon polyp COPD (chronic obstructive pulmonary disease) Erectile dysfunction SAUL (generalized anxiety disorder) Hx of colonic polyp Hypertension Tobacco abuse Surgical History Surgical History History of appendectomy Social History Social History Smoking packs per day: 1 Smoking cigarettes per day: 20.0 Years smoked: 50 Smoking pack-years: 50.00 Smoking status: Current every day smoker Tobacco type: cigarettes Second hand tobacco smoke exposure: Yes Alcohol intake: never Alcohol use details: History of Alcoholism. Quit drinking 2017. Suicide attempt 2017. Substance use: never Substance use type: does not use Last use: 40 years myesha Additional living arrangements comments: . 4 Adult Children. Spiritual care concerns: No Exam Const: General: healthy appearing and no acute distress Limitations: no limitations HENMT: Head: normal to inspection Face/Nose/Sinus: Normal external nose present Face and sinus: normal facial exam Neck: Neck: normal visual inspection Chest: Chest palpation & inspection: normal inspection of the chest Resp: Effort & Inspection: normal respiratory effort Auscultation: clear to auscultation bilaterally, wheezes and diminished lung sounds Cardio: Rate: regular rate Rhythm: regular rhythm GI: GI Palp: Yes Soft to palpation Auscultation: normal bowel sounds : General: Yes bladder normal to palpation Skin: General skin exam: normal color Rashes: no rashes Wounds: no wounds Neuro: General: patient oriented x3 Cranial nerves: Yes Nystagmus not present Extrem: General: normal to inspection Psych: Mental Status: mental status grossly normal Affect: normal affect Course Course Emergency Course: Patient received a breathing treatment and IV steroids patient had an elevated D-dimer CTA was performed which showed no pulmonary embolism, patient with history of lung cancer advised to follow with his Pulmonary/oncologist will receive a dose of sec ceftriaxone the rest of his blood work was reviewed and within normal limits. Vital Signs Vital signs: Vital Signs Temperature 36.1 C L 06/04/22 12:56 Pulse Rate 108 H 06/04/22 12:56 Respiratory Rate 24 H 06/04/22 12:56 Blood Pressure 118/68 06/04/22 12:56 Pulse Oximetry 97 06/04/22 12:56 Oxygen Delivery Nasal Cannula 06/04/22 12:56 Oxygen Flow Rate 2 06/04/22 12:56 Temperature 36.1 C L 06/04/22 12:5
--- NOTE | 2022-06-04 15:40 | PC.NURSE ---
pt assisted to personal vehicle per wheelchair per rn
== END 2022-06-04 15:41 | disposition home or self-care (01) ==
PROVIDERS: Emergency Provider Emergency Medicine; PCP Family Medicine
DX: J44.1 Chronic obstructive pulmonary disease with (acute) exacerbation (principal); J06.9 Acute upper respiratory infection, unspecified; F17.200 Nicotine dependence, unspecified, uncomplicated
CPT/HCPCS: 71045; 71275; 80053; 83735; 83880; 84484; 85025; 85380; 85610; 85730; 87040; 87636; 93005; 94640; 96361; 96365; 96375; 99284; J0696; J2930; J7040; Q9967

== ENCOUNTER 2022-06-08 13:59 | Observation (INO) | payer BC, SELFPAY ==
[2022-06-08] VITALS (34 sets, daily range): BP systolic 111–144; BP diastolic 36–93; PULSE 67–115; RESP 10–37; TEMP 36.4–36.7; O2SAT 97–100; BMI 21.7
--- NOTE | ~2022-06-08 | CT_ITS ---
EXAMINATION: CTA chest PE protocol DATE: 06/09/2022 09:35 INDICATION: Shortness of breath, chest pain and elevated d-dimer. TECHNIQUE: Computed tomography (CT) pulmonary angiogram of the chest was performed with 100 mL Omnipa que-350 intravenous contrast. Additional 3D reconstructions utilizing coronal maximum intensity proje ction (MIP) were performed. Automated exposure control and iterative reconstruction technique were em ployed. The dose-length product was 278.57 mGy-cm. COMPARISON: CT studies dated 06/04/2022 and 07/22/2020 and PET/CT dated 07/13/2021 FINDINGS: Excellent contrast opacification of the pulmonary arteries. There is mild streak artifact from dense contrast in the superior vena cava and right atrium. No significant motion artifact yielding diagnost ic quality study which demonstrates no pulmonary embolism. Moderate emphysema. 2.2 cm spiculated mass at the posterior medial right apex which is significantly decreased in size since the time of a prio r percutaneous biopsy performed on 06/29/2021 at which time the mass measured 3.6 x 3.1 cm. This be c onsistent with response to treatment of the biopsy-proven adenocarcinoma. Greater than one year of [address] ability of likely benign 7 mm and 4 mm left upper lobe nodules which are without increased uptake on prior PET study. There are also couple small calcified nodules in the both lungs consistent with old granulomatous disease. No new concerning nodules identified. Mild bronchial wall thickening with some new mucous plugging within a few of the bronchi in the bilateral lower lobes. Unchanged mild discoid atelectasis/scarring at the lingula. No pneumonia, pulmonary edema, pleural effusion or pneumothorax . Heart size is normal. No pericardial effusion. No pathologically enlarged thoracic lymphadenopathy. There is low-density thickening of the left and right adrenal glands which could represent either ad renal hyperplasia or adenomas. Bones are unremarkable. IMPRESSION: 1. No pulmonary embolism. 2. Mild bronchial wall thickening with new mild mucous plugging a few of the bilateral lower lobar br onchi suggesting bronchitis. 3. Decrease in size of a now 2.2 cm spiculated right upper lobe mass consistent with response to moose tment of a previously biopsy-proven adenocarcinoma. No evident metastatic disease. Reviewed, dictated and finalized at location A. NE ENGINEER [employer] IMPRESSION: 1. No pulmonary embolism. 2. Mild bronchial wall thickening with new mild mucous plugging a few of the bi lateral lower lobar bronchi suggesting bronchitis. 3. Decrease in size of a now 2.2 cm spiculated right upper lobe mass consistent with response to treatment of a previously biopsy-proven adenocarcinoma. No ev ident metastatic disease.
--- NOTE | 2022-06-08 14:17 | ED.SOB ---
HPI - SOB/Dyspnea General Chief Complaint: Shortness of Breath/Dyspnea Stated Complaint: SOB SHAKING Time Seen by Provider: 06/08/22 14:01 Source: patient and RN notes reviewed Mode of arrival: ambulatory Limitations: no limitations History of Present Illness HPI Narrative: patient was seen here in the emergency room 4 days ago. Shortness of breath that began 3 days prior to this. He was prescribed Levaquin and prednisone. He was given some Solu-Medrol in the emergency room along dose of Rocephin. He said that he got much worse since yesterday. He has had mean labored breathing. He was negative for COVID and flu 3 days ago. He says his upper abdominal muscles are sore from coughing and he is also sore in his chest with coughing during his ribs. He denies any substernal chest pain. He continues to smoke pack per day. He does have a history of lung cancer in the right upper lobe for which he has seen Oncology. MD elicited complaint: shortness of breath Pertinent past history: COPD Onset (ago): week(s) (1) Context: recent illness Timing: constant Severity: severe Exacerbating factors: exertion, movement and coughing Relieving factors: nothing Known history of: COPD Associated symptoms: pain with inspiration, wheezing and sputum production Treatment prior to arrival: oxygen Related Data Home oxygen amount: 2 liters (PRN) Home Medications Medication Instructions Recorded Confirmed aspirin 81 mg tablet,delayed 81 mg PO DAILY 02/27/20 06/08/22 release (Aspir-) sertraline 100 mg tablet 1 tablet PO DAILY 01/06/22 06/08/22 buspirone 5 mg tablet 5 mg PO BID 06/08/22 06/08/22 Allergies Allergy/AdvReac Type Severity Reaction Status Date / Time No Known Allergies Allergy Verified 06/08/22 14:15 Review of Systems Review of Systems: All systems reviewed & are unremarkable except as noted in HPI and below Cardiovascular: Cardiovascular: Denies chest pain and Denies rapid heart rate Respiratory: Respiratory: Reports as per HPI [facility] Past Medical History Medical History Cataracts, both eyes Colon polyp COPD (chronic obstructive pulmonary disease) Erectile dysfunction SAUL (generalized anxiety disorder) Hx of colonic polyp Hypertension Tobacco abuse Surgical History Surgical History History of appendectomy Social History Social History Smoking packs per day: 1 Smoking cigarettes per day: 20.0 Years smoked: 50 Smoking pack-years: 50.00 Smoking status: Current every day smoker Tobacco type: cigarettes Second hand tobacco smoke exposure: Yes Alcohol intake: never Alcohol use details: History of Alcoholism. Quit drinking 2017. Suicide attempt 2017. Substance use: never Substance use type: does not use Last use: 40 years myesha Additional living arrangements comments: . 4 Adult Children. Spiritual care concerns: No Exam Const: General: no acute distress, alert and ill appearing acutely and chronically Nutritional Appearance: well nourished and thin Orientation/consciousness: patient oriented x3 Limitations: no limitations HENMT: Head: normal to inspection Ears: external ears normal Face/Nose/Sinus: Normal external nose present Face and sinus: normal facial exam Mouth: Yes moist mucous membranes Eyes: Conjunctivae: conjunctivae normal Pupils: Equal, round and reactive pupils present EOM: EOMs intact bilaterally Neck: Neck: normal visual inspection Chest: Chest palpation & inspection: normal inspection of the chest Resp: Effort & Inspection: labored and uses accessory muscles Auscultation: wheezes anterior and posterior and diminished lung sounds bilateral ( Short air exchange) Cardio: Rate: regular rate Rhythm: regular rhythm GI: GI Palp: Yes Soft to palpation and Yes Tenderness to palpation present (GI) (
--- NOTE | 2022-06-08 14:30 | ECG_ITS ---
Measurements Intervals [place] Rate: 100 P: 85 [place]: 132 QRS: 87 QRSD: 94 T: 81 QT: 328 QTc: 423 Interpretive Statements SINUS TACHYCARDIA WITH OCCASIONAL SUPRAVENTRICULAR PREMATURE COMPLEXES INDETERMINATE AXIS BASELINE ARTIFACT CANNOT RULE OUT ANTEROSEPTAL MYOCARDIAL INFARCTION, OF INDETERMINATE AGE ABNORMAL ECG COMPARED TO ECG 06/04/2022 13:24:16 NO SIGNIFICANT CHANGES Electronically Signed On 06-08-2022 15:33:41 TOUR DRIVER by Wayne Gallo M.D.
[2022-06-08 14:58] LABS: Base Excess ABG 5.8 mmol/L (0-2); Basophils Absolute Auto 0.02 K/mm3 (0.00-0.10); Basophils Percent Auto 0.2 % (0.0-1.0); HCO3 ABG 30.4 mmol/L (23-29); Hematocrit 42.4 % (40.0-54.0); Hemoglobin 13.9 g/dL (14.0-18.0); Immature Granulocyte Absolute 0.04 K/mm3 (0.00-0.00); Immature Granulocyte Percent A 0.5 % (0.0-0.0); Lymphocytes Absolute Auto 0.54 K/mm3 (1.10-4.50); Lymphocytes Percent Auto 6.3 % (18.0-42.0); Mean Corpuscular HGB Conc 32.8 g/dL (32.0-36.0); Mean Corpuscular Hemoglobin 32.9 pg (27.0-31.0); Mean Corpuscular Volume 100.5 fL (78.0-102.0); Mean Platelet Volume 9.7 fl (8.7-11.0); Monocytes Absolute Auto 0.58 K/mm3 (0.10-0.90); Monocytes Percent Auto 6.7 % (2.0-11.0); Neutrophils Absolute Auto 7.5 K/mm3 (1.7-7.2); Neutrophils Percent Auto 86.3 % (50.0-70.0); Oxygen Content ABG 19.3 %vol (16.0-22.0); Oxygen Saturation ABG 96.8 % (95-97); Oxyhemoglobin 95.2 % (94-100); PCO2 ABG 44.2 mmHg (35-45); PO2 ABG 91.7 mmHg (80-90); Platelet Count Result 184 K/mm3 (150-420); Red Blood Count 4.22 M/mm3 (4.70-6.10); Total Hemoglobin 14.4 g/dL (12.0-18.0); White Blood Count 8.6 K/mm3 (4.8-10.8); pH ABG 7.46 (7.35-7.45)
[2022-06-08 14:59] LABS: Device NASAL CANNULA; Modified Allen's Test Pass; Site Drawn LEFT RADIAL
[2022-06-08 15:30] LABS: Alanine Aminotransferase 27 U/L (16-63); Albumin Level 3.9 g/dL (3.4-5.0); Alkaline Phosphatase 80 U/L (46-116); Anion Gap 7 mmol/L (8-16); Aspartate Amino Transferase 14 U/L (15-37); Bilirubin,Total 0.4 mg/dL (0.00-1.00); Blood Urea Nitrogen 17 mg/dL (7-18); Calcium 9.5 mg/dL (8.5-10.1); Carbon Dioxide 33 mmol/L (21-32); Chloride 100 mmol/L (98-108); Estimated CRCL calculation 70 ml/min; Estimated Glomerular Filt Rate > 60; Glucose 116 mg/dL (70-99); Magnesium 2.1 mg/dL (1.8-2.4); NT Pro B Type Natriuretic Pept 53 pg/mL (0-125); Osmolality Calculated 292 mOsm/kg (285-295); Potassium 4.4 mmol/L (3.5-5.1); Sodium 140 mmol/L (136-145); Troponin I 9.6 ng/L (0.00-60.4)
[2022-06-08 15:33] LABS: Influenza A QL RT-PCR Negative (Negative); Influenza B QL RT-PCR Negative (Negative); SARS-CoV-2 RNA PCR Negative (Negative)
[2022-06-08 15:41] LABS: CRP < 0.5 mg/dL (0.0-0.9)
[2022-06-08] MEDS: methylPREDNISolone SOD SUCC 125 MG VIAL IV PUSH (15:47)
[2022-06-08 15:51] LABS: D Dimer 0.78 mg/L (0.19-0.50)
--- NOTE | 2022-06-08 15:52 | PC.NURSE ---
PT IS LAID BACK ON STRETCHER WATCHING TV AND TALKING WITH WITHOUT DISTRESS. PT STATUS HAS IMPROVED, HOWEVER PT REPORTS HE DOES NOT FEEL ANY BETTER. NAD NOTED, WATER PROVIDED. WILL CONTINUE TO MONITOR.
--- NOTE | 2022-06-08 16:11 | PC.NURSE ---
ERP SPEAKING WITH HOSPITALIST AT THIS TIME FOR ADMISSION
--- NOTE | 2022-06-08 17:25 | PC.NURSE ---
pt is awaiting return call from hospitalist at this time. pt is agreeable to admission. nad noted at present. dinner tray ordered. belongings list completed. has left to get pt items from home. will continue to monitor.
[2022-06-08] MEDS: IPRATROPIUM 0.5 MG/ALBUTEROL SULFATE 2.5 MG AMPUL.NEB 3 ML INHALATION (17:48)
--- NOTE | 2022-06-08 18:10 | PC.NURSE ---
BRIDGET CRAWFORD PROVIDED, FEDE TX COMPLETED. PT CONTINUES TO AWAIT RETURN CALL FROM HOSPITALIST AT THIS TIME. NAD NOTED. WILL CONTINUE TO MONITOR.
--- NOTE | 2022-06-08 18:55 | PC.NURSE ---
PT GETS PANICKED WITH NEB TX, 'I AM JITTERY AND CAN'T BREATHE. PT IS COACHED INTO SLOWING DOWN RESPIRATIONS AND CALMING DOWN, TOLERATES WELL. PT O2 SAT 100% ON 2L. PT IS TO BE ADMITTED TO 201.
--- NOTE | 2022-06-08 19:27 | ADMGEN ---
This patient, Cleve Blas, was admitted to 2nd Floor Room 201-1. Patient oriented to hospital policies and general routines including ID bracelet, bed and alarms, visiting hours, pain management, procedures, bathroom and other care routines, personal items, smoking policy, room service/diet, and visiting hours. Information on how to activate the Rapid Response Team has been discussed. Patient are encouraged to report perceived risks to care and to ask questions if they do not understand what they are told or what they should do.
[2022-06-08] MEDS: MONTELUKAST SODIUM 10 MG TABLET BY MOUTH (20:36)
[2022-06-08] MEDS: busPIRone HCL 5 MG TABLET PO (20:37)
[2022-06-08] MEDS: METOPROLOL TARTRATE 50 MG TAB PO (20:37)
[2022-06-08] MEDS: levoFLOXacin 500 MG/D5W 100 ML 500 MG/100 ML BAG 100 MG IVPB (20:40)
[2022-06-08] MEDS: SALMET XINAFT/FLUTIC PROPIN 250 MCG/50 MCG INH CAP 1 PUFF INHALATION (20:47)
[2022-06-08] MEDS: IPRATROPIUM 0.5 MG/ALBUTEROL SULFATE 2.5 MG AMPUL.NEB 3 ML NEBULIZE (23:45)
[2022-06-09] VITALS (12 sets, daily range): BP systolic 95–114; BP diastolic 49–60; PULSE 66–83; RESP 16–20; TEMP 36.7–37.1; O2SAT 96–99
[2022-06-09] MEDS: SALMET XINAFT/FLUTIC PROPIN 250 MCG/50 MCG INH CAP 1 PUFF INHALATION ×2 (05:30→18:30)
[2022-06-09] MEDS: IPRATROPIUM 0.5 MG/ALBUTEROL SULFATE 2.5 MG AMPUL.NEB 3 ML NEBULIZE ×4 (05:31→23:56)
[2022-06-09 05:32] LABS: Basophils Absolute Auto 0.01 K/mm3 (0.00-0.10); Basophils Percent Auto 0.1 % (0.0-1.0); Hematocrit 39.1 % (40.0-54.0); Hemoglobin 12.8 g/dL (14.0-18.0); Immature Granulocyte Absolute 0.03 K/mm3 (0.00-0.00); Immature Granulocyte Percent A 0.3 % (0.0-0.0); Lymphocytes Absolute Auto 0.58 K/mm3 (1.10-4.50); Lymphocytes Percent Auto 6.3 % (18.0-42.0); Mean Corpuscular HGB Conc 32.7 g/dL (32.0-36.0); Mean Corpuscular Hemoglobin 32.7 pg (27.0-31.0); Mean Corpuscular Volume 99.7 fL (78.0-102.0); Mean Platelet Volume 10.2 fl (8.7-11.0); Monocytes Absolute Auto 0.47 K/mm3 (0.10-0.90); Monocytes Percent Auto 5.1 % (2.0-11.0); Neutrophils Absolute Auto 8.1 K/mm3 (1.7-7.2); Neutrophils Percent Auto 88.2 % (50.0-70.0); Platelet Count Result 183 K/mm3 (150-420); Red Blood Count 3.92 M/mm3 (4.70-6.10); White Blood Count 9.1 K/mm3 (4.8-10.8)
[2022-06-09 05:50] LABS: Alanine Aminotransferase 24 U/L (16-63); Albumin Level 3.4 g/dL (3.4-5.0); Alkaline Phosphatase 70 U/L (46-116); Anion Gap 3 mmol/L (8-16); Aspartate Amino Transferase 14 U/L (15-37); Bilirubin,Total 0.3 mg/dL (0.00-1.00); Blood Urea Nitrogen 15 mg/dL (7-18); Carbon Dioxide 34 mmol/L (21-32); Chloride 103 mmol/L (98-108); Estimated CRCL calculation 81 ml/min; Estimated Glomerular Filt Rate > 60; Glucose 124 mg/dL (70-99); Osmolality Calculated 291 mOsm/kg (285-295); Potassium 4.7 mmol/L (3.5-5.1); Sodium 140 mmol/L (136-145); Total Protein 6.2 g/dL (6.4-8.2)
[2022-06-09] MEDS: SERTRALINE HCL 50 MG TABLET 100 MG PO (08:57)
[2022-06-09] MEDS: ASPIRIN 81 MG ENTERIC TABLET PO (08:58)
[2022-06-09] MEDS: ENOXAPARIN 40 MG/0.4 ML SYRINGE SUB-Q (08:58)
[2022-06-09] MEDS: busPIRone HCL 5 MG TABLET PO ×2 (08:58→17:29)
--- NOTE | 2022-06-09 10:57 | PM.IMHP ---
H&P: HPI History of Present Illness Date/Time: 06/09/22 10:57 Chief Complaint: SHORTNESS OF BREATH, FATIGUE, Narrative: Mr. Blas is a 67-year-old male with mid to the hospital with End Stage COPD patient had increased shortness of breath and continues to smoke on a daily basis. Patient has a past medical history of some anxiety which is not helped with his shortness of breath. In the emergency room he was found to be tachycardic with given some IV fluids started on some IV antibiotics with some IV steroids which has helped improve some of his shortness of breath patient requires a BiPAP while sleeping. Patient has a pulmonology appointment in the morning which he more than likely will miss due to being hospitalized. Patient has also been diagnosed with right upper lobe cancer and being treated with by hematology last treatment was 3 days ago. We will continue to treat patient accordingly patient's labs are not significantly worsened at this time we will hydrate him gave him routinely breathing treatments in treatment of his anxiety to see if this is this with decrease in shortness of breath. Review of Systems Review of Systems: SHORTNESS OF BREATH All systems reviewed & are unremarkable except as noted in HPI and below PMFSH Past Medical History Medical History Cataracts, both eyes Colon polyp COPD (chronic obstructive pulmonary disease) Erectile dysfunction SAUL (generalized anxiety disorder) Hx of colonic polyp Hypertension Tobacco abuse Surgical History Surgical History History of appendectomy Social History Social History Smoking packs per day: 1 Smoking cigarettes per day: 20.0 Years smoked: 50 Smoking pack-years: 50.00 Smoking status: Current some day smoker Tobacco type: cigarettes Second hand tobacco smoke exposure: Yes Alcohol intake: former Alcohol use details: History of Alcoholism. Quit drinking 2017. Suicide attempt 2017. Substance use: never Substance use type: does not use Last use: 40 years myesha Lack of Transportation: No Lack of Food: Never True Current Housing: I Have Housing Concerned About Future Housing: No Difficulty Paying Gas/Electric Bills: No Difficulty Paying for Meds: No Currently Unemployed: No Education: High School Diploma/GED Difficulty w/ Childcare or Family Care: No Additional living arrangements comments: . 4 Adult Children. Spiritual care concerns: No Comments AT TIME SIGNATURE, I HAVE REVIEWED AND AGREE WITH NURSING PAST MEDICAL, SOCIAL, SURGICAL AND FAMILY HISTORY. PLEASE SEE NURSING CHART FOR FURTHER INFORMATION. THERE IS NO RELEVANT FAMILY HISTORY PERTINENT TO THE PRESENTING COMPLAINT. Meds Home Medications and Allergies Home Medications Medication Instructions Recorded Confirmed Type aspirin 81 mg tablet,delayed 81 mg PO DAILY 02/27/20 06/08/22 History release (Aspir-) sertraline 100 mg tablet 1 tablet PO DAILY 01/06/22 06/08/22 History Breo Ellipta 100 mcg-25 mcg/dose See Rx Instructions .Route 01/07/22 06/08/22 Rx powder for inhalation (fluticasone .COMPLEX #60 ea furoate-vilanterol) ipratropium 0.5 mg-albuterol 3 mg See Rx Instructions .Route 01/07/22 06/08/22 Rx (2.5 mg base)/3 mL nebulization .COMPLEX #360 mL soln roflumilast 500 mcg tablet 500 mcg PO DAILY #30 tabs 01/07/22 06/08/22 Rx metoprolol tartrate 50 mg tablet See Rx Instructions .Route 02/10/22 06/08/22 Rx .COMPLEX #180 tabs albuterol sulfate 90 mcg/actuation See Rx Instructions .Route 04/22/22 06/08/22 Rx aerosol inhaler .COMPLEX #8.5 ea montelukast 10 mg tablet See Rx Instructions .Route 05/03/22 06/08/22 Rx .COMPLEX #90 tabs buspirone 5 mg tablet 5 mg PO BID 06/08/22 06/08/22 History lorazepam 0.5 mg tablet 0.5 mg PO Q6H PRN Anxiety #15 tabs 06/10/22 Rx jacquie
--- NOTE | 2022-06-09 17:42 | PC.NURSE ---
Patient sitting in bed with HOB elevated. Fed self supper. Alert and oriented x3, able to verbalize needs. IV site clean, dry, intact. No signs of drainage, swelling, redness. Side rails up x2, belongings within reach. O2 on at 2lpm/nc. No resp distress observed.
[2022-06-09] MEDS: MONTELUKAST SODIUM 10 MG TABLET BY MOUTH (21:02)
[2022-06-10] VITALS (8 sets, daily range): BP systolic 105–113; BP diastolic 56–63; PULSE 74–100; RESP 16–20; TEMP 36.6–37; O2SAT 93–98
--- NOTE | 2022-06-10 00:12 | PC.NURSE ---
Pt resting quietly in bed; SAO2 is 98% and no signs of respiratory distress are noted. 200 ml of clear, adiel urine emptied from the urinal.
--- NOTE | 2022-06-10 00:34 | PC.NURSE ---
2000 Patient sitting up in bed. Call light and belongings within reach. IV site clean, dry, no redness, swelling, drainage. Patient denies pain. O2 @ 2LPM/NC. No resp distress observed.
--- NOTE | 2022-06-10 03:19 | PC.NURSE ---
Pt asleep and no signs of discomfort or respiratory distress noted.
[2022-06-10] MEDS: IPRATROPIUM 0.5 MG/ALBUTEROL SULFATE 2.5 MG AMPUL.NEB 3 ML NEBULIZE ×2 (04:55→11:17)
--- NOTE | 2022-06-10 05:02 | PC.NURSE ---
Pt taking his breathing treatment per RT at this time.
[2022-06-10 05:44] LABS: Hematocrit 38.9 % (40.0-54.0); Hemoglobin 12.6 g/dL (14.0-18.0); Mean Corpuscular HGB Conc 32.4 g/dL (32.0-36.0); Mean Corpuscular Hemoglobin 32.3 pg (27.0-31.0); Mean Corpuscular Volume 99.7 fL (78.0-102.0); Mean Platelet Volume 9.7 fl (8.7-11.0); Platelet Count Result 168 K/mm3 (150-420); Red Cell Distribution Width 12.9 % (11.6-14.4)
[2022-06-10 05:57] LABS: Anion Gap 4 mmol/L (8-16); Blood Urea Nitrogen 17 mg/dL (7-18); Calcium 8.4 mg/dL (8.5-10.1); Carbon Dioxide 33 mmol/L (21-32); Chloride 101 mmol/L (98-108); Estimated CRCL calculation 76 ml/min; Estimated Glomerular Filt Rate > 60; Glucose 91 mg/dL (70-99); Osmolality Calculated 287 mOsm/kg (285-295); Potassium 3.7 mmol/L (3.5-5.1); Sodium 138 mmol/L (136-145)
[2022-06-10] MEDS: SALMET XINAFT/FLUTIC PROPIN 250 MCG/50 MCG INH CAP 1 PUFF INHALATION (06:39)
--- NOTE | 2022-06-10 06:42 | PC.NURSE ---
Pt given advair discus 1 puff as ordered.
--- NOTE | 2022-06-10 08:50 | PC.NURSE ---
complaints of nausea
[2022-06-10] MEDS: ONDANSETRON INJ 4 MG/2 ML VIAL IV PUSH (08:51)
[2022-06-10] MEDS: busPIRone HCL 5 MG TABLET PO (09:32)
[2022-06-10] MEDS: ASPIRIN 81 MG ENTERIC TABLET PO (09:33)
[2022-06-10] MEDS: SERTRALINE HCL 50 MG TABLET 100 MG PO (09:33)
[2022-06-10] MEDS: LORazepam (*CRX) 0.5 MG TABLET PO (10:54)
[2022-06-10] MEDS: NICOTINE (*PBKC) 21 MG PATCH 1 PATCH TRANSDERM (10:54)
--- NOTE | 2022-06-10 11:00 | PC.NURSE ---
No further nausea
--- NOTE | 2022-06-10 11:46 | PM.DS ---
DS: Admitting Diagnosis Discharge Date 06/10/2022 Admitting Diagnosis COPD Exacerbation DS: Discharge Diagnosis Discharge Diagnosis (1) LOYDA (obstructive sleep apnea): Code(s): G47.33 - Obstructive sleep apnea (adult) (pediatric) Status: Acute Assessment and Plan: BIPAP WHILE SLEEPING AT BEDSIDE (2) Nocturnal hypoxemia due to emphysema: Code(s): J43.9 - Emphysema, unspecified; G47.36 - Sleep related hypoventilation in conditions classified elsewhere Status: Acute Assessment and Plan: Breathing treatment as indicated oxygen if indicated Inhalers steroids home medication (3) Anxiety: Code(s): F41.9 - Anxiety disorder, unspecified Status: Acute Assessment and Plan: Prn medication as indicated (4) Declined smoking cessation: Code(s): Z72.0 - Tobacco use Status: Acute Assessment and Plan: Avoid smoking Pt declines to quit (5) Allergic sinusitis: Code(s): J30.9 - Allergic rhinitis, unspecified Status: Acute Assessment and Plan: Flonase Allergy medicatin as indicated (6) Tobacco abuse: Code(s): Z72.0 - Tobacco use Status: Acute (7) Lung mass: Code(s): R91.8 - Other nonspecific abnormal finding of lung field Status: Acute DS: Summary Hospital Course Reason for hospitalization: Copd Exacerbation , Anxiety Hospital Course: this is a 66-year-old male who continues to smoke a pack a day cigarettes who has end-stage COPD. Patient has increased shortness of breath at times some related to anxiety as he will be have been normal saturation. Mr. To eat during this admission was treated with IV antibiotics, IV steroids and was given some IV fluids as well and breathing treatments. Patient was 2 days without smoking did have a discussion with him about avoidance patient informs me he is declining to speak with smoking he has been smoking this long. Missed a 2 week is less anxious at this time although hesitant to go home he does have oxygen at if he needs a he missed his appointment with the chemical milling processor from being in the hospital I did call their office he will need to call Dr. Ruiz's office and reschedule his self outpatient appointment patient's vitals have remained stable blood pressure is 113/63, pulse is 93, respirations 16, temp 97.9? patient's labs are potassium 3.7, sodium 138, BUN 17, creatinine 0.86, WBCs 8, hemoglobin 12, platelets 168. Called and spoke with Dr. Haddad office they do not se patient the same day of being in hospital patient will need to follow up with a appointment as a outpatient . He will need to call and reschedule. Time Spent with Patient Time attestation: Total time spent providing and/or coordinating discharge services: Exam Narrative: GENERAL FrailL-APPEARING, WELL-NOURISHED, AND IN NO ACUTE DISTRESS. HEAD:NORMOCEPHALIC, ATRAUMATIC. EYES: PERRLA ENT: NARES CLEAR, NO RHINORRHEA OR EPISTAXIS. MUCOUS MEMBRANES MOIST. CHEST: CLEAR TO diminished w scattered intermittent wheezes AUSCULTATION. mild RESPIRATORY DISTRESS w his anxiety HEART: REGULAR RATE AND RHYTHM NORMAL PERIPHERAL PULSES. ABDOMEN: SOFT, NONTENDER, NONDISTENDED, NORMAL ACTIVE BOWEL SOUNDS. EXTREMITIES: NORMAL RANGE OF MOTION. NO EDEMA. SKIN: WARM, DRY, NO RASH. NEURO: NO FOCAL DEFICITS. ALERT AND ORIENTED X3. DS: Data Data Completed and Pending Labs on day of discharge: Labs from last 24 hours 06/10/22 06/10/22 05:10 05:10 WBC 8.0 RBC 3.90 L Hgb 12.6 L Hct 38.9 L MCV 99.7 MCH 32.3 H MCHC 32.4 RDW 12.9 Plt Count 168 MPV 9.7 Sodium 138 Potassium 3.7 Chloride 101 Carbon Dioxide 33 H Anion Gap 4 L BUN 17 Creatinine 0.86 Estim Creat Clear Calc 76 Estimated GFR > 60 Glucose 91 Calculated Osmolality 287 Calcium 8.4 L Discharge Plan Discharge Attending physician on discharge: Aleksandr Torres Discharging Clinician:
--- NOTE | 2022-06-10 13:05 | PC.NURSE ---
discharge to home, reviewed discharge instructions, alert and oriented x4 and present and no questions asked, agreeable to dc home, home oxygen placed on patient and assisted to wheel chair, tolerated well, home meds returned to [facility]
--- NOTE | 2022-06-13 14:51 | PC.NURSE ---
Pt states he received and understood his discharge instructions. Pt has no other comments.
== END 2022-06-10 13:05 | disposition home or self-care (01) ==
LOC: CHSED 18:43 → CHS2ND 06-09 07:48
PROVIDERS: Nurse Practitioner Family; Admitting Provider Internal Medicine; Emergency Provider Emergency Medicine; PCP Family Medicine; Visit Provider Internal Medicine
DX: J44.1 Chronic obstructive pulmonary disease with (acute) exacerbation (principal); C34.11 Malignant neoplasm of upper lobe, right bronchus or lung; I10 Essential (primary) hypertension; J30.9 Allergic rhinitis, unspecified; G47.36 Sleep related hypoventilation in conditions classified elsewhere; G47.33 Obstructive sleep apnea (adult) (pediatric); F17.210 Nicotine dependence, cigarettes, uncomplicated; F41.1 Generalized anxiety disorder; Z20.822 Contact with and (suspected) exposure to COVID-19; Z79.82 Long term (current) use of aspirin; Z86.010 Personal history of colon polyps
CPT/HCPCS: 36415; 36600; 71275; 80048; 80053; 82805; 83735; 83880; 84484; 85025; 85027; 85380; 86140; 87502; 93005; 94640; 96365; 96374; 96375; 99285; A9270; G0378; J1650; J1956; J2405; J2930; Q9967; U0003; U0005

== ENCOUNTER 2022-07-03 10:09 | Emergency (ER) | payer BC, SELFPAY ==
--- NOTE | ~2022-07-03 | XR_ITS ---
EXAMINATION: XR chest 1V portable DATE: 07/03/2022 10:48 INDICATION: Chest pain. TECHNIQUE: A single frontal view of the chest was obtained on 2 radiographs. COMPARISON: Chest single view 06/04/2022, chest CT 06/09/2022 FINDINGS: There is a paraspinal mass in right lung upper lobe. The lungs are hyperexpanded, consisten t with emphysema. No pleural effusion or pneumothorax. The heart size is normal. There is a left inte rnal jugular port with tip in superior vena cava. IMPRESSION: 1. Paraspinal mass in right lung upper lobe again seen, consistent with primary bronchogenic carcinom a. 2. Emphysema. Reviewed, dictated and finalized at location A. TER ENGINEERING IMPRESSION: 1. Paraspinal mass in right lung upper lobe again seen, consistent with primary bronchogenic carcinoma. 2. Emphysema.
[2022-07-03 10:09] VITALS: BP 134/85; PULSE 88; RESP 18; TEMP 37.2; O2SAT 96
--- NOTE | 2022-07-03 10:17 | ED.CHESTPAIN ---
HPI - Chest Pain General Chief Complaint: Chest Pain Stated Complaint: chest pains Time Seen by Provider: 07/03/22 10:17 History of Present Illness HPI narrative: 66-year-old male patient with known history of COPD and obstructive sleep apnea, oxygen dependent and still smoking is here with complaints of chest pain across the mid upper chest area radiating into the arms for the last 2 days. The patient denies any worsening of shortness of breath. He states that he thought the pain would go way and did not come yesterday but this morning he noticed that the pain was still there. The pain is described as constant ache. There is no associated nausea. There is no associated pain in the neck or jaw area. Patient states that he took a neb treatment before coming to the ER this morning. He also used a CPAP at night which she usually does. Patient also has a history of adenocarcinoma of the right upper lung for which she has undergone chemotherapy and radiation therapy and has been started on immunotherapy. He states that he has missed the last 2 doses of immunotherapy because of dry mouth. He is scheduled to see his oncologist again in August and thinks that he will resume therapy at that time. He denies any known history of coronary artery disease. Related Data Home Medications Medication Instructions Recorded Confirmed aspirin 81 mg tablet,delayed 81 mg PO DAILY 02/27/20 07/03/22 release (Aspir-) sertraline 100 mg tablet 1 tablet PO DAILY 01/06/22 07/03/22 buspirone 5 mg tablet 5 mg PO BID 06/08/22 07/03/22 trazodone 100 mg tablet 100 mg PO HS 07/03/22 07/03/22 Allergies Allergy/AdvReac Type Severity Reaction Status Date / Time No Known Allergies Allergy Verified 07/03/22 10:21 Review of Systems Review of Systems: All systems reviewed & are unremarkable except as noted in HPI and below Constitutional: Constitutional: Denies chills, Denies fatigue and Denies fever(s) Eyes: Eyes: Reports no additional eye complaints ENT: Reports system reviewed and no additional complaints, except as documented Cardiovascular: Cardiovascular: Reports chest pain, Denies rapid heart rate, Reports radiating jaw, neck or arm pain and Denies slow heart rate Respiratory: Respiratory: Reports no additional respiratory complaints, Reports cough, Reports dyspnea and Reports wheezing Comments: Always has a cough with the shortness of breath and wheezing from his underlying COPD Gastrointestinal: Gastrointestinal: Reports no additional gastrointestinal complaints Genitourinary: Genitourinary: Reports no additional male genitourinary complaints Musculoskeletal: Musculoskeletal: Reports no additional musculoskeletal complaints Integumentary/Breasts: Skin/Breast: Reports system reviewed and no additional complaints, except as docu Neurologic: Reports system reviewed and no additional complaints, except as documented Psychiatric: Psychiatric: Reports no additional psychiatric complaints Endocrine: Endocrine: Reports no additional endocrine complaints Hematologic/Lymphatic: Hematologic/Lymphatic: Reports no additional hematologic/lymphatic complaints Allergic/Immunologic: Allergic/Immunologic: Reports no additional allergic/immunologic complaints [facility] Past Medical History Medical History (Updated 07/03/22 @ 13:03 by Danay Talbert MD) Cataracts, both eyes Colon polyp COPD (chronic obstructive pulmonary disease) Erectile dysfunction SAUL (generalized anxiety disorder) Hx of colonic polyp Hypertension Primary lung large cell carcinoma Tobacco abuse Surgical History Surgical History History of appendectomy Social History Social History Smoking packs per day: 1 Smoking cigarettes per day: 20.0 Years smoked: 50 Smoking pack-years: 50.00 Smoking status: Current some day smoker Tobacco type: cigarettes Seco
[2022-07-03 10:20] VITALS: PULSE 88
--- NOTE | 2022-07-03 10:25 | ECG_ITS ---
Measurements Intervals Reynolds Rate: 89 P: 82 FL: 118 QRS: 82 QRSD: 97 T: 71 QT: 347 QTc: 422 Interpretive Statements SINUS RHYTHM WITH SHORT FL INTERVAL DELAYED PRECORDIAL R/S TRANSITION BASELINE ARTIFACT- II, III, AVR, AVL, AVF, V1, V3-V6 BORDERLINE ECG COMPARED TO ECG 06/08/2022 14:55:27 SINUS RHYTHM NOW PRESENT Electronically Signed On 07-03-2022 15:27:16 AGRONOMY LOCATION MANAGER by Antione Hurtado D.O.
[2022-07-03 10:54] LABS: Basophils Absolute Auto 0.03 K/mm3 (0.00-0.10); Basophils Percent Auto 0.5 % (0.0-1.0); Eosinophils Absolute Auto 0.06 K/mm3 (0.02-0.50); Eosinophils Percent Auto 0.9 % (1.0-6.0); Hematocrit 35.8 % (40.0-54.0); Hemoglobin 11.8 g/dL (14.0-18.0); Immature Granulocyte Absolute 0.03 K/mm3 (0.00-0.00); Immature Granulocyte Percent A 0.5 % (0.0-0.0); Lymphocytes Percent Auto 10.7 % (18.0-42.0); Mean Corpuscular Hemoglobin 33.1 pg (27.0-31.0); Mean Corpuscular Volume 100.3 fL (78.0-102.0); Mean Platelet Volume 9.4 fl (8.7-11.0); Monocytes Absolute Auto 0.58 K/mm3 (0.10-0.90); Monocytes Percent Auto 8.9 % (2.0-11.0); Neutrophils Absolute Auto 5.1 K/mm3 (1.7-7.2); Neutrophils Percent Auto 78.5 % (50.0-70.0); Platelet Count Result 177 K/mm3 (150-420); Red Blood Count 3.57 M/mm3 (4.70-6.10); Red Cell Distribution Width 13.1 % (11.6-14.4); White Blood Count 6.5 K/mm3 (4.8-10.8)
[2022-07-03 11:00] LABS: Influenza A QL RT-PCR Negative (Negative); Influenza B QL RT-PCR Negative (Negative); SARS-CoV-2 RNA PCR Negative (Negative)
[2022-07-03 11:01] LABS: RSV RNA, RT-PCR Negative (Negative)
[2022-07-03 11:14] LABS: Alanine Aminotransferase 22 U/L (16-63); Albumin Level 3.4 g/dL (3.4-5.0); Alkaline Phosphatase 75 U/L (46-116); Anion Gap 6 mmol/L (8-16); Aspartate Amino Transferase 13 U/L (15-37); Bilirubin,Total 0.4 mg/dL (0.00-1.00); Blood Urea Nitrogen 9 mg/dL (7-18); Calcium 8.8 mg/dL (8.5-10.1); Carbon Dioxide 33 mmol/L (21-32); Chloride 100 mmol/L (98-108); Estimated CRCL calculation 83 ml/min; Estimated Glomerular Filt Rate > 60; Glucose 106 mg/dL (70-99); Osmolality Calculated 286 mOsm/kg (285-295); Potassium 3.7 mmol/L (3.5-5.1); Sodium 139 mmol/L (136-145); Total Protein 6.2 g/dL (6.4-8.2); Troponin I 8.3 ng/L (0.00-60.4)
[2022-07-03] MEDS: ASPIRIN 81 MG CHEWABLE TABLET 324 MG PO (11:34)
[2022-07-03 12:16] VITALS: O2SAT 93
[2022-07-03] MEDS: HEPARIN SODIUM LOCK FLUSH 500 UNITS/5 ML SYRINGE (13:15)
[2022-07-03 13:37] VITALS: BP 129/70; PULSE 80; RESP 20; TEMP 36.7; O2SAT 100
== END 2022-07-03 13:44 | disposition home or self-care (01) ==
PROVIDERS: Emergency Provider Emergency Medicine; PCP Family Medicine
DX: R07.89 Other chest pain (principal); J44.9 Chronic obstructive pulmonary disease, unspecified; G47.33 Obstructive sleep apnea (adult) (pediatric); Z99.81 Dependence on supplemental oxygen; C34.11 Malignant neoplasm of upper lobe, right bronchus or lung; F41.1 Generalized anxiety disorder; I10 Essential (primary) hypertension; F17.210 Nicotine dependence, cigarettes, uncomplicated; F10.21 Alcohol dependence, in remission; Z79.82 Long term (current) use of aspirin; Z92.21 Personal history of antineoplastic chemotherapy; Z92.3 Personal history of irradiation; Z79.51 Long term (current) use of inhaled steroids
CPT/HCPCS: 36415; 71045; 80053; 84484; 85025; 87637; 93005; 99284; A9270

== ENCOUNTER 2022-08-08 09:26 | Outpatient (CLI) | payer MEDICARE, SELFPAY ==
--- NOTE | ~2022-08-08 | CT_ITS ---
Clinical Indication: Lung cancer, shortness of breath CT Scan of the Chest, Abdomen, and Pelvis with Contrast: Technique: Contiguous sections were acquired throughout the chest, abdomen, and pelvis after intraven ous administration of 100 cc of Omnipaque 350. Dose reduction technique was used on this scan by pedro caballeroing automated exposure control and iterative reconstruction technique. The dose-length product (DL P) was 360.49 mGy-cm. COMPARISON: 06/09/2022 Findings: There is no evidence of any significant mediastinal, hilar or axillary lymphadenopathy. The mediastin al soft tissues and vascular structures appear normal. There is no evidence of pleural or pericardial effusion. Moderate emphysema present. Posterior pleural-based right upper lobe pulmonary lesion is present, ricky suring 2.2 x 2.0 cm in size, stable from prior exam. Mild biapical scarring is unchanged. The liver, spleen, pancreas, gallbladder, and kidneys are within normal limits. Possible adrenal hype rplasia, similar to prior exam. No evidence of aortic aneurysm. No lymphadenopathy. No bowel obstruction or bowel wall thickening. There is no evidence to suggest acute appendicitis. Urinary bladder is unremarkable. Prostate gland mildly enlarged. No ascites. Impression: Stable 2.2 x 2.0 cm pleural-based mass at the posterior right upper lobe. This is compatible with kno wn adenocarcinoma, possibly representing treated disease. Moderate emphysema. Possible adrenal hyperplasia, similar to prior exam. Reviewed, dictated and finalized at [facility]. OPRACTIC ASSISTANT Impression: Stable 2.2 x 2.0 cm pleural-based mass at the posterior right upper lobe. This is compatible with known adenocarcinoma, possibly representing treated disease. Moderate emphysema. Possible adrenal hyperplasia, similar to prior exam.
[2022-08-08 10:06] LABS: Estimated Glomerular Filt Rate > 60
== END 2022-08-08 09:27 | disposition home or self-care (01) ==
LOC: CHSIMG 09:30
PROVIDERS: PCP Family Medicine; Visit Provider Internal Medicine Hematology & Oncology
DX: C34.90 Malignant neoplasm of unspecified part of unspecified bronchus or lung (principal); R91.8 Other nonspecific abnormal finding of lung field; J43.9 Emphysema, unspecified
CPT/HCPCS: 71260; 74177; Q9967

== ENCOUNTER 2022-08-09 08:37 | Outpatient (CLI) | payer MEDICARE, SELFPAY ==
[2022-08-09 08:56] LABS: Basophils Absolute Auto 0.04 K/mm3 (0.00-0.10); Basophils Percent Auto 0.5 % (0.0-1.0); Eosinophils Absolute Auto 0.12 K/mm3 (0.02-0.50); Eosinophils Percent Auto 1.6 % (1.0-6.0); Hematocrit 39.8 % (37.0-46.0); Hemoglobin 12.7 g/dL (12.4-15.3); Immature Granulocyte Absolute 0.03 K/mm3 (0.00-0.00); Immature Granulocyte Percent A 0.4 % (0.0-0.0); Lymphocytes Absolute Auto 0.99 K/mm3 (1.10-4.50); Lymphocytes Percent Auto 12.9 % (18.0-42.0); Mean Corpuscular HGB Conc 31.9 g/dL (32.0-36.0); Mean Corpuscular Hemoglobin 32.2 pg (27.0-31.0); Mean Platelet Volume 9.5 fl (8.7-11.0); Monocytes Absolute Auto 0.59 K/mm3 (0.10-0.90); Monocytes Percent Auto 7.7 % (2.0-11.0); Neutrophils Absolute Auto 5.9 K/mm3 (1.7-7.2); Neutrophils Percent Auto 76.9 % (50.0-70.0); Platelet Count Result 195 K/mm3 (150-420); Red Blood Count 3.94 M/mm3 (4.70-6.10); Red Cell Distribution Width 14.6 % (11.6-14.4); White Blood Count 7.7 K/mm3 (4.8-10.8)
[2022-08-09 09:50] LABS: Alanine Aminotransferase 24 U/L (16-63); Albumin Level 3.8 g/dL (3.4-5.0); Alkaline Phosphatase 85 U/L (46-116); Anion Gap 4 mmol/L (8-16); Aspartate Amino Transferase 18 U/L (15-37); Bilirubin,Total 0.3 mg/dL (0.00-1.00); Blood Urea Nitrogen 11 mg/dL (7-18); Calcium 9.4 mg/dL (8.5-10.1); Carbon Dioxide 33 mmol/L (21-32); Chloride 102 mmol/L (98-108); Estimated Glomerular Filt Rate > 60; Glucose 124 mg/dL (70-99); Osmolality Calculated 288 mOsm/kg (285-295); Potassium 4.2 mmol/L (3.5-5.1); Sodium 139 mmol/L (136-145); Total Protein 6.4 g/dL (6.4-8.2)
== END 2022-08-09 08:38 | disposition home or self-care (01) ==
LOC: CHSLAB 08:38
PROVIDERS: PCP Family Medicine; Visit Provider Internal Medicine Hematology & Oncology
DX: C34.90 Malignant neoplasm of unspecified part of unspecified bronchus or lung (principal)
CPT/HCPCS: 36415; 80053; 85025

== ENCOUNTER 2022-08-29 18:41 | Emergency (ER) | payer MEDICARE, SELFPAY ==
[2022-08-29] VITALS (9 sets, daily range): BP systolic 104–137; BP diastolic 60–75; PULSE 77–108; RESP 18–22; TEMP 36–37.2; O2SAT 96–100
--- NOTE | ~2022-08-29 | XR_ITS ---
EXAMINATION: XR chest 1V portable Exam Date/Time: 08/29/2022 19:25 PATIENT CARE HISTORY: Exacerbation of COPD; increased SOB with cough 2 days. Comparison: 07/03/2022, CT cap 08/08/2022. RESULT: Lines, tubes, and devices: Left chest port terminating in the distal SVC. Lungs and pleura: Unchanged paraspinal mass in the right apex emphysematous changes. Cardiomediastinal silhouette: Stable. Other: No acute osseous or upper abdominal finding. IMPRESSION: No acute cardiopulmonary process. Reviewed, dictated and finalized at location [facility]. ENT CARE
[2022-08-29] MEDS: IPRATROPIUM 0.5 MG/ALBUTEROL SULFATE 2.5 MG AMPUL.NEB 3 ML INHALATION (19:07)
--- NOTE | 2022-08-29 19:23 | ED.GENADULT ---
HPI - General Adult General Chief complaint: Shortness of Breath/Dyspnea Stated complaint: SOB Time Seen by Provider: 08/29/22 18:50 History of Present Illness HPI narrative: The patient is a 67-year-old male with history of right upper lobe non-small cell lung cancer, status post chemotherapy and radiation and immunotherapy. He still smokes. He is considered not a surgical candidate due to his severe emphysema with COPD. He does use oxygen at night mostly and as needed. Other comorbidities include hypertension obstructive sleep apnea on a BiPAP machine, and vaccinations against influenza and COVID-19. On August 19, 2022, he had seen his extruder operator helper and was prescribed a 5 day course of prednisone given dyspnea. He has not received antibiotics in the last month. Over the last several days, the patient has needed to use his oxygen continuously, at 2 L, for the last 48 hours. He does have a dry cough. His dyspnea has increased over the last several days. No wheezing. Does have a sore throat. Feels generalized weakness with increased fatigue. Nausea present but no vomiting. Mild diffuse abdominal discomfort. No chest pain or discomfort. No fevers or chills or diaphoresis. No rhinorrhea or nasal congestion. No diarrhea. Related Data Home Medications Medication Instructions Recorded Confirmed aspirin 81 mg tablet,delayed 81 mg PO DAILY 02/27/20 08/19/22 release (Aspir-) sertraline 100 mg tablet 1 tablet PO DAILY 01/06/22 08/19/22 buspirone 5 mg tablet 5 mg PO BID 06/08/22 08/19/22 Allergies Allergy/AdvReac Type Severity Reaction Status Date / Time No Known Allergies Allergy Verified 08/29/22 18:58 Review of Systems Review of Systems: All systems reviewed & are unremarkable except as noted in HPI and below Constitutional: Constitutional: Reports as per HPI, Reports no additional constitutional complaints, Denies chills, Denies excessive sweating, Reports fatigue, Denies fever(s), Denies headache(s) and Reports weakness Eyes: Eyes: Reports as per HPI, Reports no additional eye complaints, Denies change in vision and Denies photophobia ENT: Reports system reviewed and no additional complaints, except as documented, Reports as per HPI, Denies dysphagia, Denies vertigo, Denies dizziness, Denies headache(s), Denies lip swelling, Denies nasal congestion, Reports sore throat, Denies throat swelling and Denies tongue swelling Cardiovascular: Cardiovascular: Reports as per HPI, Reports no additional cardiovascular complaints, Denies chest pain, Denies syncope, Denies rapid heart rate and Reports dyspnea Respiratory: Respiratory: Reports as per HPI, Reports no additional respiratory complaints, Denies chest congestion, Reports cough, Reports dyspnea and Denies wheezing Gastrointestinal: Gastrointestinal: Reports as per HPI, Reports no additional gastrointestinal complaints, Reports abdominal pain, Denies constipation, Denies dysphagia, Denies diarrhea, Reports nausea and Denies vomiting Genitourinary: Genitourinary: Reports as per HPI, Denies hematuria, Denies oliguria, Denies dysuria, Denies urinary frequency, Denies urinary incontinence and Denies urinary urgency Musculoskeletal: Musculoskeletal: Reports no additional musculoskeletal complaints, Denies back pain, Reports myalgias, Denies arthralgias, Denies joint swelling and Denies numbness Integumentary/Breasts: Skin/Breast: Reports system reviewed and no additional complaints, except as docu, Denies pruritus, Denies erythema, Denies rash and Denies skin ulcer Neurologic: Reports system reviewed and no additional complaints, except as documented, Reports as per HPI, Denies confusion, Denies vertigo, Denies dizziness, Denies syncope, Denies headache(s), Denies focal weakness, Denies numbness and Denies weakness Psychiatric: Psychiatric: Reports as per HPI, Denies anxiety, Denies confusion, Denies depression, Denies homicidal ideation and Denies suicidal ideation Endocrine:
[2022-08-29] MEDS: methylPREDNISolone SOD SUCC 125 MG VIAL IV PUSH (19:26)
[2022-08-29] MEDS: guaiFENesin/DEXTROMETHORPHAN 5 ML UDC 10 ML PO (19:26)
[2022-08-29] MEDS: BENZONATATE 100 MG CAPSULE PO (19:26)
[2022-08-29 19:28] LABS: Base Excess ABG 1.7 mmol/L (0-2); HCO3 ABG 25.4 mmol/L (23-29); Oxygen Saturation ABG 98.7 % (95-97); Oxyhemoglobin 96.2 % (94-100); PCO2 ABG 37.1 mmHg (35-45); PO2 ABG 145.8 mmHg (80-90); Total Hemoglobin 13.9 g/dL (12.0-18.0); pH ABG 7.45 (7.35-7.45)
[2022-08-29] MEDS: MAGNESIUM SULF 2 GM/WATER 50ML 2 GM/50 ML BAG IVPB (19:28)
[2022-08-29 19:31] LABS: Basophils Absolute Auto 0.03 K/mm3 (0.00-0.10); Basophils Percent Auto 0.3 % (0.0-1.0); Eosinophils Absolute Auto 0.11 K/mm3 (0.02-0.50); Eosinophils Percent Auto 1.2 % (1.0-6.0); Hematocrit 38.3 % (37.0-46.0); Hemoglobin 12.7 g/dL (12.4-15.3); Immature Granulocyte Absolute 0.04 K/mm3 (0.00-0.00); Immature Granulocyte Percent A 0.4 % (0.0-0.0); Lymphocytes Absolute Auto 1.09 K/mm3 (1.10-4.50); Lymphocytes Percent Auto 12.2 % (18.0-42.0); Mean Corpuscular HGB Conc 33.2 g/dL (32.0-36.0); Mean Corpuscular Hemoglobin 33.4 pg (27.0-31.0); Mean Corpuscular Volume 100.8 fL (78.0-102.0); Monocytes Absolute Auto 0.86 K/mm3 (0.10-0.90); Monocytes Percent Auto 9.6 % (2.0-11.0); Neutrophils Absolute Auto 6.8 K/mm3 (1.7-7.2); Neutrophils Percent Auto 76.3 % (50.0-70.0); Platelet Count Result 173 K/mm3 (150-420); Red Cell Distribution Width 13.6 % (11.6-14.4); White Blood Count 8.9 K/mm3 (4.8-10.8)
[2022-08-29 19:45] LABS: Device NASAL CANNULA; Modified Allen's Test Pass; Site Drawn RIGHT RADIAL
[2022-08-29 19:52] LABS: Lactic Acid Reflex 0.9 mmol/L (0.4-2.0)
[2022-08-29 19:57] LABS: Strep Group A RT-PCR NOT DETECTED (Negative)
[2022-08-29 20:01] LABS: Alanine Aminotransferase 22 U/L (16-63); Albumin Level 3.3 g/dL (3.4-5.0); Alkaline Phosphatase 74 U/L (46-116); Anion Gap 8 mmol/L (8-16); Aspartate Amino Transferase 17 U/L (15-37); Bilirubin,Total 0.4 mg/dL (0.00-1.00); Blood Urea Nitrogen 23 mg/dL (7-18); Calcium 9.3 mg/dL (8.5-10.1); Carbon Dioxide 31 mmol/L (21-32); Chloride 101 mmol/L (98-108); D Dimer 0.67 mg/L (0.19-0.50); Estimated CRCL calculation 73 ml/min; Estimated Glomerular Filt Rate > 60; Glucose 95 mg/dL (70-99); NT Pro B Type Natriuretic Pept 31 pg/mL (0-125); Osmolality Calculated 293 mOsm/kg (285-295); Potassium 4.2 mmol/L (3.5-5.1); Sodium 140 mmol/L (136-145); Total Protein 6.2 g/dL (6.4-8.2)
[2022-08-29 20:06] LABS: CRP < 0.5 mg/dL (0.0-0.9)
[2022-08-29 20:08] LABS: Influenza A QL RT-PCR Negative (Negative); Influenza B QL RT-PCR Negative (Negative); SARS-CoV-2 RNA PCR Negative (Negative)
[2022-08-29 20:10] LABS: RSV RNA, RT-PCR Negative (Negative)
[2022-08-29] MEDS: HEPARIN SODIUM LOCK FLUSH 500 UNITS/5 ML SYRINGE (20:42)
[2022-08-29 20:45] LABS: Erythrocyte Sedimentation Rate 21 mm/hr (0-20)
--- NOTE | 2022-09-05 12:45 | PC.NURSE ---
final blood culture report reviewed. No growth after 5 days . no change in plan of care
--- NOTE | 2022-09-10 12:55 | PC.NURSE ---
final blood culture reports reviewed. no growth after 5 days. no change in plan of care
== END 2022-08-29 20:51 | disposition home or self-care (01) ==
PROVIDERS: Emergency Provider Emergency Medicine; PCP Family Medicine
DX: J43.9 Emphysema, unspecified (principal); I10 Essential (primary) hypertension; F41.9 Anxiety disorder, unspecified; F17.210 Nicotine dependence, cigarettes, uncomplicated; Z20.822 Contact with and (suspected) exposure to COVID-19; Z85.118 Personal history of other malignant neoplasm of bronchus and lung; Z99.81 Dependence on supplemental oxygen
CPT/HCPCS: 36415; 36600; 71045; 80053; 82805; 83605; 83735; 83880; 84484; 85025; 85380; 85652; 86140; 87040; 87637; 87651; 94640; 96365; 96375; 99284; A9270; J2930; J3475

== ENCOUNTER 2022-09-08 09:28 | Outpatient (CLI) | payer MEDICARE, SELFPAY ==
[2022-09-08 09:48] VITALS: BP 145/70; PULSE 80; RESP 16; TEMP 36.6; O2SAT 99
[2022-09-08 09:50] VITALS: BMI 22.1
[2022-09-08] MEDS: DURVALUMAB IVPB (10:00)
[2022-09-08] MEDS: SODIUM CHLORIDE 0.9% IVPB (10:00)
[2022-09-08] MEDS: HEPARIN SODIUM LOCK FLUSH 500 UNITS/5 ML SYRINGE IV PUSH (11:00)
--- NOTE | 2022-09-08 11:03 | PC.NURSE ---
Patient here for his monthly durvalumab IV immuno therapy. Was on hold last few months. On#4. Dr. Peñaloza ok'd labs from ED visit last week. No need to redraw today. Patient reports feeling better from last weeks COPD exacerbation and finishing up on his short term steroid. Also reports is using his O2 more than just at night. He also states, Using the O2 more often makes him less anxious. Education given. No concerns voiced. IV Durvalumab administered. SEE MAR. Tolerated well. Will return 10/06/22 at 0930 for #5. Safe exit of hospital per to truck.
== END 2022-09-08 09:29 | disposition home or self-care (01) ==
PROVIDERS: PCP Family Medicine; Visit Provider Internal Medicine Hematology & Oncology
DX: Z51.11 Encounter for antineoplastic chemotherapy (principal); C34.11 Malignant neoplasm of upper lobe, right bronchus or lung
CPT/HCPCS: 96413; J7050; J9173

== ENCOUNTER 2022-10-06 09:17 | Outpatient (CLI) | payer MEDICARE, SELFPAY ==
[2022-10-06 09:20] VITALS: BMI 22.1
[2022-10-06 09:30] VITALS: BP 130/70; PULSE 80; RESP 20; TEMP 36.4; O2SAT 96
[2022-10-06 09:38] LABS: Basophils Absolute Auto 0.05 K/mm3 (0.00-0.10); Basophils Percent Auto 0.6 % (0.0-1.0); Eosinophils Absolute Auto 0.07 K/mm3 (0.02-0.50); Eosinophils Percent Auto 0.9 % (1.0-6.0); Hematocrit 37.7 % (37.0-46.0); Hemoglobin 12.7 g/dL (12.4-15.3); Immature Granulocyte Absolute 0.04 K/mm3 (0.00-0.00); Immature Granulocyte Percent A 0.5 % (0.0-0.0); Lymphocytes Absolute Auto 1.13 K/mm3 (1.10-4.50); Lymphocytes Percent Auto 14.1 % (18.0-42.0); Mean Corpuscular HGB Conc 33.7 g/dL (32.0-36.0); Mean Corpuscular Hemoglobin 33.2 pg (27.0-31.0); Mean Corpuscular Volume 98.4 fL (78.0-102.0); Mean Platelet Volume 9.7 fl (8.7-11.0); Monocytes Absolute Auto 0.65 K/mm3 (0.10-0.90); Monocytes Percent Auto 8.1 % (2.0-11.0); Neutrophils Absolute Auto 6.1 K/mm3 (1.7-7.2); Neutrophils Percent Auto 75.8 % (50.0-70.0); Platelet Count Result 184 K/mm3 (150-420); Red Blood Count 3.83 M/mm3 (4.70-6.10); Red Cell Distribution Width 13.1 % (11.6-14.4)
[2022-10-06 09:53] LABS: Alanine Aminotransferase 33 U/L (16-63); Albumin Level 3.6 g/dL (3.4-5.0); Alkaline Phosphatase 78 U/L (46-116); Anion Gap 7 mmol/L (8-16); Aspartate Amino Transferase 18 U/L (15-37); Bilirubin,Total 0.4 mg/dL (0.00-1.00); Blood Urea Nitrogen 11 mg/dL (7-18); Calcium 9.2 mg/dL (8.5-10.1); Carbon Dioxide 31 mmol/L (21-32); Chloride 101 mmol/L (98-108); Estimated CRCL calculation 81 ml/min; Estimated Glomerular Filt Rate > 60; Glucose 118 mg/dL (70-99); Osmolality Calculated 288 mOsm/kg (285-295); Potassium 4.1 mmol/L (3.5-5.1); Sodium 139 mmol/L (136-145); Total Protein 6.6 g/dL (6.4-8.2)
[2022-10-06] MEDS: SODIUM CHLORIDE 0.9% IVPB (10:20)
[2022-10-06] MEDS: DURVALUMAB IVPB (10:20)
--- NOTE | 2022-10-06 11:27 | PC.NURSE ---
Patient here for Monthly Durvalumab IV infusion. Education given. Reports being doing well with tx's again. Quit smoking. Noted respiratory effort has improvement. IV Durvalumab administered. SEE MAR. Tolerated well. Will return next month tx on 11/03/22 at 0930. Safe exit of hospital per ambulatory per self.
[2022-10-06] MEDS: HEPARIN SODIUM LOCK FLUSH 500 UNITS/5 ML SYRINGE IV PUSH (11:33)
== END 2022-10-06 09:18 | disposition home or self-care (01) ==
LOC: CHSTREATRM 09:18
PROVIDERS: PCP Family Medicine; Visit Provider Internal Medicine Hematology & Oncology
DX: Z51.11 Encounter for antineoplastic chemotherapy (principal); C34.11 Malignant neoplasm of upper lobe, right bronchus or lung
CPT/HCPCS: 36415; 80053; 85025; 96413; J7050; J9173

== ENCOUNTER 2022-11-03 09:25 | Outpatient (CLI) | payer MEDICARE, SELFPAY ==
[2022-11-03 09:41] VITALS: BP 117/67; PULSE 72; RESP 16; TEMP 36.6; O2SAT 98; BMI 21.9
[2022-11-03 09:44] LABS: Basophils Absolute Auto 0.05 K/mm3 (0.00-0.10); Basophils Percent Auto 0.6 % (0.0-1.0); Eosinophils Absolute Auto 0.15 K/mm3 (0.02-0.50); Eosinophils Percent Auto 1.9 % (1.0-6.0); Hematocrit 40.7 % (37.0-46.0); Hemoglobin 13.5 g/dL (12.4-15.3); Immature Granulocyte Absolute 0.03 K/mm3 (0.00-0.00); Immature Granulocyte Percent A 0.4 % (0.0-0.0); Lymphocytes Absolute Auto 1.45 K/mm3 (1.10-4.50); Lymphocytes Percent Auto 18.2 % (18.0-42.0); Mean Corpuscular HGB Conc 33.2 g/dL (32.0-36.0); Mean Corpuscular Hemoglobin 32.6 pg (27.0-31.0); Mean Corpuscular Volume 98.3 fL (78.0-102.0); Mean Platelet Volume 9.6 fl (8.7-11.0); Monocytes Absolute Auto 0.71 K/mm3 (0.10-0.90); Monocytes Percent Auto 8.9 % (2.0-11.0); Neutrophils Absolute Auto 5.6 K/mm3 (1.7-7.2); Platelet Count Result 202 K/mm3 (150-420); Red Blood Count 4.14 M/mm3 (4.70-6.10); Red Cell Distribution Width 13.6 % (11.6-14.4)
[2022-11-03 09:57] LABS: Alanine Aminotransferase 26 U/L (16-63); Albumin Level 3.8 g/dL (3.4-5.0); Alkaline Phosphatase 83 U/L (46-116); Anion Gap 7 mmol/L (8-16); Aspartate Amino Transferase 16 U/L (15-37); Bilirubin,Total 0.6 mg/dL (0.00-1.00); Blood Urea Nitrogen 18 mg/dL (7-18); Calcium 9.4 mg/dL (8.5-10.1); Carbon Dioxide 32 mmol/L (21-32); Chloride 99 mmol/L (98-108); Estimated CRCL calculation 77 ml/min; Estimated Glomerular Filt Rate > 60; Glucose 101 mg/dL (70-99); Osmolality Calculated 287 mOsm/kg (285-295); Potassium 4.2 mmol/L (3.5-5.1); Sodium 138 mmol/L (136-145); Total Protein 7.1 g/dL (6.4-8.2)
[2022-11-03] MEDS: SODIUM CHLORIDE 0.9% IVPB (10:09)
[2022-11-03] MEDS: DURVALUMAB IVPB (10:09)
--- NOTE | 2022-11-03 10:59 | PC.NURSE ---
Patient here for monthly chemo infusion. Education given. Labs/blood drawn/reviewed/ok'd for chemo today. No concerns voiced. IV Chemo administered see AUG. Tolerated well. Safe exit of hospital per self ambulatory. Will return on December 01, 2022 - at 0930 a.m
[2022-11-03 11:01] VITALS: BP 114/67; PULSE 78; RESP 14
[2022-11-03] MEDS: HEPARIN SODIUM LOCK FLUSH 500 UNITS/5 ML SYRINGE IV PUSH (11:05)
== END 2022-11-03 09:26 | disposition home or self-care (01) ==
PROVIDERS: PCP Family Medicine; Visit Provider Internal Medicine Hematology & Oncology
DX: Z51.11 Encounter for antineoplastic chemotherapy (principal); C34.11 Malignant neoplasm of upper lobe, right bronchus or lung
CPT/HCPCS: 36415; 36592; 80053; 85025; 96413; J7050; J9173

== ENCOUNTER 2022-11-11 11:38 | Outpatient (CLI) | payer MEDICARE, SELFPAY ==
--- NOTE | ~2022-11-11 | XR_ITS ---
EXAMINATION: XR chest 2V 11/11/2022 12:02 INDICATION: Dyspnea PROCEDURE: 2 views chest COMPARISON: No prior studies for comparison. FINDINGS: The lungs are clear. The cardiomediastinal silhouette is within normal limits. There are no pleural effusions. There is no pneumothorax suspected. Central venous catheter tip in the SVC. T he lungs are hyperinflated which is consistent with, but not diagnostic of chronic obstructive pulmon jose disease. IMPRESSION: 1: NO ACUTE CARDIOPULMONARY DISEASE. Reviewed, dictated and finalized at location [facility].
== END 2022-11-11 11:39 | disposition home or self-care (01) ==
LOC: CHSIMG 11:40
PROVIDERS: PCP Family Medicine; Visit Provider Nurse Practitioner Family
DX: R06.09 Other forms of dyspnea (principal)
CPT/HCPCS: 71046

== ENCOUNTER 2022-12-13 07:49 | Outpatient (CLI) | payer MEDICARE, SELFPAY ==
--- NOTE | ~2022-12-13 | CT_ITS ---
EXAMINATION: CT chest abdomen pelvis w con DATE: 12/13/2022 08:47 INDICATION: Lung cancer. TECHNIQUE: Computed tomography (CT) of the chest, abdomen, and pelvis was performed with 100 mL Omnip aque 350 intravenous contrast. Automated exposure control and iterative reconstruction technique were employed. The dose-length product was 427.89 mGy-cm. COMPARISON: CT 08/08/2022, 05/31/21 FINDINGS: CHEST CT: There is severe emphysema. There is mild atelectasis bilaterally. There is a 3.2 x 1.7 cm mass in rig ht lung upper lobe, stable from 08/18/2022. There is mild scarring at the lung apices. No pleural effu dyoln. The heart size is normal. No pericardial effusion. There are no pathologically enlarged lymph n odes. There is a left subclavian port with tip in proximal right atrium. There is total occlusion of left subclavian vein with contrast in venous collaterals. ABDOMEN/PELVIS CT: The liver, gallbladder, spleen, pancreas, and adrenal glands are normal. There is cortical thinning o f the kidneys. The prostate is mildly enlarged. There is a right inguinal hernia containing fat. Ther e is diverticulosis of the colon without evidence of diverticulitis. There are changes of appendectom y. There are no pathologically enlarged lymph nodes. There is no free intraperitoneal fluid. There is calcified atherosclerosis of the aorta and many of the other arteries without significant stenosis. There is no osseous malignancy. IMPRESSION: 1. Stable mass in right lung upper lobe, consistent with primary bronchogenic carcinoma. 2. Severe emphysema. 3. Deep vein thrombosis involving left subclavian vein, new from 08/08/2022. Reviewed, dictated and finalized at location A. IMPRESSION: 1. Stable mass in right lung upper lobe, consistent with primary bronchogenic c arcinoma. 2. Severe emphysema. 3. Deep vein thrombosis involving left subclavian vein, new from 08/08/2022.
[2022-12-13 08:12] LABS: Estimated Glomerular Filt Rate > 60
== END 2022-12-13 07:50 | disposition home or self-care (01) ==
LOC: CHSIMG 07:52
PROVIDERS: PCP Family Medicine; Visit Provider Internal Medicine Hematology & Oncology
DX: C34.90 Malignant neoplasm of unspecified part of unspecified bronchus or lung (principal); J43.9 Emphysema, unspecified; I82.622 Acute embolism and thrombosis of deep veins of left upper extremity
CPT/HCPCS: 71260; 74177; Q9967

== ENCOUNTER 2022-12-13 17:21 | Emergency (ER) | payer MEDICARE, SELFPAY ==
[2022-12-13 17:21] VITALS: O2SAT 97
[2022-12-13 17:24] VITALS: BP 145/85; PULSE 96; RESP 22; TEMP 37.2; O2SAT 96
--- NOTE | 2022-12-13 17:26 | ED.RECABL ---
HPI - Recheck/Abnormal Lab/Rx General Chief Complaint: Unspecified Stated Complaint: Blood clot Time Seen by Provider: 12/13/22 17:23 Source: patient and RN notes reviewed Mode of arrival: ambulatory Limitations: no limitations History of Present Illness complaint: abnormal lab ( CT scan showing blood clot in the subclavian vein near port) Initial visit (ago): hour(s) (5) Initial visit for: other ( routine scan by Oncology) Returns today for: called because of abnormal lab/test Symptoms since prior visit: no new symptoms Context: planned re-check Associated symptoms: none Related Data Home Medications Medication Instructions Recorded Confirmed buspirone 5 mg tablet 5 mg PO BID 06/08/22 12/13/22 Allergies Allergy/AdvReac Type Severity Reaction Status Date / Time No Known Allergies Allergy Verified 12/13/22 17:27 Review of Systems Review of Systems: All systems reviewed & are unremarkable except as noted in HPI and below PMFSH Past Medical History Medical History Anxiety about health Cataracts, both eyes Colon polyp COPD (chronic obstructive pulmonary disease) Erectile dysfunction SAUL (generalized anxiety disorder) Hx of colonic polyp Hypertension Primary lung large cell carcinoma Tobacco abuse Surgical History Surgical History History of appendectomy Social History Social History Smoking packs per day: 1 Smoking cigarettes per day: 20.0 Years smoked: 50 Smoking pack-years: 50.00 Smoking status: Current some day smoker Tobacco type: cigarettes Second hand tobacco smoke exposure: Yes Alcohol intake: former Alcohol use details: History of Alcoholism. Quit drinking 2017. Suicide attempt 2017. Substance use: never Substance use type: does not use Last use: 40 years myesha Lack of Transportation: No Lack of Food: Never True Current Housing: I Have Housing Concerned About Future Housing: No Difficulty Paying Gas/Electric Bills: No Difficulty Paying for Meds: No Currently Unemployed: No Education: High School Diploma/GED Difficulty w/ Childcare or Family Care: No Living arrangements: with family Additional living arrangements comments: . 4 Adult Children. Spiritual care concerns: No Exam Const: General: healthy appearing, no acute distress and alert Nutritional Appearance: well nourished Orientation/consciousness: patient oriented x3 Limitations: no limitations HENMT: Head: normal to inspection Ears: external ears normal Face/Nose/Sinus: Normal external nose present Face and sinus: normal facial exam Mouth: Yes moist mucous membranes Eyes: Conjunctivae: conjunctivae normal Pupils: Equal, round and reactive pupils present EOM: EOMs intact bilaterally Neck: Neck: normal visual inspection Resp: Effort & Inspection: normal respiratory effort Auscultation: clear to auscultation bilaterally Cardio: Rate: regular rate Rhythm: regular rhythm GI: GI Palp: Yes Soft to palpation and No Tenderness to palpation present (GI) Auscultation: normal bowel sounds Back/Spine/Pelvis: Cervical Spine: cervical ROM normal Thoracic/Lumbar Spine: thoraco-lumbar ROM normal Skin: General skin exam: normal color Rashes: no rashes Neuro: General: patient oriented x3, moves all extremities, no focal motor deficits and CN's II-XI intact bilaterally Speech: normal speech Gait exam (Neuro): Normal gait present Extrem: General: normal to inspection and no clubbing, cyanosis or edema Psych: Mental Status: mental status grossly normal Affect: normal affect Attitude: cooperative Course Course Emergency Course: patient advised that if the Eliquis is not covered by his insurance at the pharmacy that they should call back here and I would prescribe Lovenox injections q.12 hours as a bridge therapy until
[2022-12-13 17:45] VITALS: BP 131/71; PULSE 98; RESP 18; O2SAT 97
== END 2022-12-13 17:45 | disposition home or self-care (01) ==
PROVIDERS: Emergency Provider Emergency Medicine; PCP Family Medicine
DX: I82.B12 Acute embolism and thrombosis of left subclavian vein (principal); I10 Essential (primary) hypertension; J44.9 Chronic obstructive pulmonary disease, unspecified; F17.210 Nicotine dependence, cigarettes, uncomplicated
CPT/HCPCS: 99283

== ENCOUNTER 2022-12-15 16:47 | Emergency (ER) | payer MEDICARE, SELFPAY ==
[2022-12-15] VITALS (12 sets, daily range): BP systolic 106–136; BP diastolic 68–82; PULSE 91–112; RESP 18–24; TEMP 36.4–36.6; O2SAT 95–98
--- NOTE | ~2022-12-15 | XR_ITS ---
EXAMINATION: XR chest 2V Exam Date/Time: 12/15/2022 17:32 CDT HISTORY: weakness Comparison: 11/11/2022. RESULT: Lines, tubes, and devices: Left central venous line, tip in the distal SVC. Lungs and pleura: Bilateral hyperinflation as can be seen with emphysema. No pneumothorax or focal c onsolidation. Cardiomediastinal silhouette: Stable. Other: No acute osseous or upper abdominal finding. IMPRESSION: No acute cardiopulmonary process. Reviewed, dictated and finalized at location K.
--- NOTE | ~2022-12-15 | CT_ITS ---
EXAMINATION: CT brain wo con DATE: 12/15/2022 17:46 INDICATION: weakness with dizziness . TECHNIQUE: Computed tomography (CT) of the head was performed without intravenous contrast. The mA wa s adjusted according to patient size. Iterative reconstruction technique was employed. The dose-lengt h product was 681.00 mGy-cm. COMPARISON: None. FINDINGS: No acute intracranial hemorrhage or extra-axial fluid collection. No hydrocephalus, mass, or herniation. No acute ischemic infarct. Unremarkable dural venous sinus attenuation. No acute osseous abnormality. The aerated spaces are clear. Atherosclerotic intracranial calcification. Bilateral lens replacements. IMPRESSION: No acute intracranial process. Reviewed, dictated and finalized at location K.
--- NOTE | 2022-12-15 17:14 | ECG_ITS ---
Measurements Intervals [place] Rate: 97 P: 78 [place]: 124 QRS: 94 QRSD: 105 T: 64 QT: 324 QTc: 413 Interpretive Statements SINUS RHYTHM BORDERLINE RIGHT AXIS DEVIATION [QRS AXIS > 90] COMPARED TO ECG 07/03/2022 10:11:32 NO SIGNIFICANT CHANGES Electronically Signed On 12-16-2022 13:45:10 CDT by Vincent Bonilla M.D.
[2022-12-15 17:33] LABS: Basophils Absolute Auto 0.06 K/mm3 (0.00-0.10); Basophils Percent Auto 0.9 % (0.0-1.0); Eosinophils Absolute Auto 0.14 K/mm3 (0.02-0.50); Eosinophils Percent Auto 2.2 % (1.0-6.0); Hemoglobin 12.7 g/dL (12.4-15.3); Immature Granulocyte Absolute 0.02 K/mm3 (0.00-0.00); Immature Granulocyte Percent A 0.3 % (0.0-0.0); Lymphocytes Absolute Auto 0.85 K/mm3 (1.10-4.50); Lymphocytes Percent Auto 13.1 % (18.0-42.0); Mean Corpuscular HGB Conc 32.6 g/dL (32.0-36.0); Mean Corpuscular Hemoglobin 32.6 pg (27.0-31.0); Mean Platelet Volume 9.4 fl (8.7-11.0); Monocytes Absolute Auto 0.65 K/mm3 (0.10-0.90); Neutrophils Absolute Auto 4.8 K/mm3 (1.7-7.2); Neutrophils Percent Auto 73.5 % (50.0-70.0); Platelet Count Result 217 K/mm3 (150-420); Red Cell Distribution Width 13.3 % (11.6-14.4); White Blood Count 6.5 K/mm3 (4.8-10.8)
[2022-12-15 17:51] LABS: Alanine Aminotransferase 20 U/L (16-63); Albumin Level 3.4 g/dL (3.4-5.0); Alkaline Phosphatase 91 U/L (46-116); Anion Gap 6 mmol/L (8-16); Aspartate Amino Transferase 15 U/L (15-37); Bilirubin,Total 0.5 mg/dL (0.00-1.00); Blood Urea Nitrogen 10 mg/dL (7-18); Calcium 9.4 mg/dL (8.5-10.1); Carbon Dioxide 32 mmol/L (21-32); Chloride 103 mmol/L (98-108); Estimated CRCL calculation 76 ml/min; Estimated Glomerular Filt Rate > 60; Glucose 117 mg/dL (70-99); Osmolality Calculated 292 mOsm/kg (285-295); Potassium 3.8 mmol/L (3.5-5.1); Sodium 141 mmol/L (136-145)
[2022-12-15 17:55] LABS: Lactic Acid Reflex 0.7 mmol/L (0.4-2.0)
--- NOTE | 2022-12-15 18:11 | ED.DIZZY ---
HPI - Dizziness General Chief Complaint: Dizziness Stated Complaint: dizziness Time Seen by Provider: 12/15/22 16:50 Source: patient and family Mode of arrival: ambulatory Limitations: no limitations History of Present Illness HPI Narrative: This is 67-year-old male that presents with dizziness, was sent by his primary care physician because of dizziness, patient recently started on Eliquis for a clot in the left subclavian vein. 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 Patient recently started Eliquis approximately 2 to 3 days ago. Patient has a history of COPD, is on oxygen his vital signs are stable currently satting at 100%. Denies any shortness of breath no chest pain no fever chills no dysuria no flank pain no nausea vomiting or abdominal pain. There is no neurological deficits patient does have a left eye droop probably related to his adenocarcinoma of the lung that is in the left upper apex. No palpitations no chest pain no shortness of breath. MD elicited complaint: dizziness Description: sense of movement Context: change in medication Related Data Home Medications Medication Instructions Recorded Confirmed buspirone 5 mg tablet 5 mg PO BID 06/08/22 12/15/22 Allergies Allergy/AdvReac Type Severity Reaction Status Date / Time No Known Allergies Allergy Verified 12/15/22 16:53 Review of Systems Review of Systems: All systems reviewed & are unremarkable except as noted in HPI and below PMFSH Past Medical History Medical History Anxiety about health Cataracts, both eyes Colon polyp COPD (chronic obstructive pulmonary disease) Erectile dysfunction SAUL (generalized anxiety disorder) Hx of colonic polyp Hypertension Primary lung large cell carcinoma Tobacco abuse Surgical History Surgical History History of appendectomy Social History Social History Smoking packs per day: 1 Smoking cigarettes per day: 20.0 Years smoked: 50 Smoking pack-years: 50.00 Smoking status: Current some day smoker Tobacco type: cigarettes Second hand tobacco smoke exposure: Yes Alcohol intake: former Alcohol use details: History of Alcoholism. Quit drinking 2017. Suicide attempt 2017. Substance use: never Substance use type: does not use Last use: 40 years myesha Lack of Transportation: No Lack of Food: Never True Current Housing: I Have Housing Concerned About Future Housing: No Difficulty Paying Gas/Electric Bills: No Difficulty Paying for Meds: No Currently Unemployed: No Education: High School Diploma/GED Difficulty w/ Childcare or Family Care: No Living arrangements: with family Additional living arrangements comments: . 4 Adult Children. Spiritual care concerns: No Exam Const: General: no acute distress Nutritional Appearance: well nourished Limitations: no limitations HENMT: Head: normal to inspection Eyes: Conjunctivae: conjunctivae normal Pupils: Equal, round and reactive pupils present EOM: EOMs intact bilaterally Neck: Neck: normal visual inspection Chest: Chest palpation & inspection: normal inspection of the chest Resp: Effort & Inspection: normal respiratory effort Auscultation: clear to auscultation bilaterally Cardio: Rate: regular rate Rhythm: regular rhythm GI: Auscultation: normal bowel sounds Urinary Catheter: Urinary Catheter: patent and draining Skin: General skin exam: normal color Rashes: no rashes Wounds: no wounds Neuro: General: patient oriented x3 and moves all extremities Cranial nerves: Yes Nystagmus not present Extrem: General: normal to inspection Psych: Mental Status: mental status grossly normal Affect: normal affect Course Course Emergency Course: Lab CT scan and
[2022-12-15 18:18] LABS: Appearance Urine Clear (Clear); Bilirubin Urine 1+ (Negative); Blood Urine Negative (Negative); Color Urine Yellow (Yellow); Glucose Urine UA Negative (Negative); Ketones Urine Negative (Negative); Leukocyte Esterase Ur Trace LEU/UL (Negative); Nitrate Urine Negative (Negative); Protein Urine Trace (Negative); Specific Grav Ur 1.015 (1.010-1.020); pH Urine 7.5 (5.0-8.0)
[2022-12-15 18:23] LABS: Add Urine Microscopic? YES; RBC Urine 0-2 /hpf (0-2)
[2022-12-15 18:24] LABS: Bacteria Urine 1+ /hpf; Mucus Urine Rare /lpf; Squamous Epithelial Cell Urine None seen /hpf (Few)
[2022-12-15] MEDS: IPRATROPIUM 0.5 MG/ALBUTEROL SULFATE 2.5 MG AMPUL.NEB 3 ML INHALATION (18:28)
[2022-12-15] MEDS: SULFAMETHOXAZOLE/TRIMETHOPRIM 800/160 MG DS TABLET 1 TAB PO (18:32)
== END 2022-12-15 18:57 | disposition home or self-care (01) ==
PROVIDERS: Emergency Provider Emergency Medicine; PCP Family Medicine
DX: N30.00 Acute cystitis without hematuria (principal); R42 Dizziness and giddiness; J44.9 Chronic obstructive pulmonary disease, unspecified; I10 Essential (primary) hypertension; F17.210 Nicotine dependence, cigarettes, uncomplicated; Z99.81 Dependence on supplemental oxygen; Z79.01 Long term (current) use of anticoagulants; Z85.118 Personal history of other malignant neoplasm of bronchus and lung
CPT/HCPCS: 36415; 70450; 71046; 80053; 81001; 83605; 85025; 93005; 94640; 99284; A9270

== ENCOUNTER 2023-01-05 09:07 | Outpatient (CLI) | payer MEDICARE, SELFPAY ==
[2023-01-05 09:29] VITALS: BP 109/63; PULSE 88; RESP 18; TEMP 36.6; O2SAT 98; BMI 22.1
[2023-01-05 09:29] LABS: Basophils Absolute Auto 0.04 K/mm3 (0.00-0.10); Basophils Percent Auto 0.6 % (0.0-1.0); Eosinophils Absolute Auto 0.11 K/mm3 (0.02-0.50); Eosinophils Percent Auto 1.7 % (1.0-6.0); Hematocrit 40.4 % (37.0-46.0); Immature Granulocyte Absolute 0.03 K/mm3 (0.00-0.00); Immature Granulocyte Percent A 0.5 % (0.0-0.0); Lymphocytes Percent Auto 14.1 % (18.0-42.0); Mean Corpuscular HGB Conc 32.2 g/dL (32.0-36.0); Mean Corpuscular Hemoglobin 32.3 pg (27.0-31.0); Mean Corpuscular Volume 100.5 fL (78.0-102.0); Mean Platelet Volume 9.7 fl (8.7-11.0); Monocytes Absolute Auto 0.48 K/mm3 (0.10-0.90); Monocytes Percent Auto 7.5 % (2.0-11.0); Neutrophils Absolute Auto 4.8 K/mm3 (1.7-7.2); Neutrophils Percent Auto 75.6 % (50.0-70.0); Platelet Count Result 186 K/mm3 (150-420); Red Blood Count 4.02 M/mm3 (4.70-6.10); Red Cell Distribution Width 13.3 % (11.6-14.4); White Blood Count 6.4 K/mm3 (4.8-10.8)
[2023-01-05 09:45] LABS: Alanine Aminotransferase 20 U/L (16-63); Albumin Level 3.6 g/dL (3.4-5.0); Alkaline Phosphatase 83 U/L (46-116); Anion Gap 7 mmol/L (8-16); Aspartate Amino Transferase 18 U/L (15-37); Bilirubin,Total 0.4 mg/dL (0.00-1.00); Blood Urea Nitrogen 12 mg/dL (7-18); Calcium 9.1 mg/dL (8.5-10.1); Carbon Dioxide 31 mmol/L (21-32); Chloride 102 mmol/L (98-108); Estimated CRCL calculation 74 ml/min; Estimated Glomerular Filt Rate > 60; Glucose 112 mg/dL (70-99); Osmolality Calculated 290 mOsm/kg (285-295); Sodium 140 mmol/L (136-145); Total Protein 6.7 g/dL (6.4-8.2)
[2023-01-05] MEDS: SODIUM CHLORIDE 0.9% IVPB (10:05)
[2023-01-05] MEDS: DURVALUMAB IVPB (10:05)
[2023-01-05 11:06] VITALS: BP 110/65; PULSE 80; RESP 16; TEMP 36.6; O2SAT 97
[2023-01-05] MEDS: HEPARIN SODIUM LOCK FLUSH 500 UNITS/5 ML SYRINGE IV PUSH (11:06)
--- NOTE | 2023-01-05 11:08 | PC.NURSE ---
Patient here for #8 of 12 Imfinzi IV infusion q 4 weeks. Education given. No concerns voiced. Reports that the weather is making it harder to breathe when outside. Is wearing home O2. Took it off once settled in. Labs drawn/reviewed/ok'd. IV Imfinzi administered. SEE MAR. Tolerated well. Safe exit of hospital per ambulatory/self. Will return 02/02/23 at 0930 for #10.
== END 2023-01-05 09:08 | disposition home or self-care (01) ==
LOC: CHSTREATRM 09:12
PROVIDERS: PCP Family Medicine; Visit Provider Internal Medicine Hematology & Oncology
DX: Z51.11 Encounter for antineoplastic chemotherapy (principal); C34.11 Malignant neoplasm of upper lobe, right bronchus or lung
CPT/HCPCS: 36415; 36592; 80053; 85025; 96413; J7050; J9173

== ENCOUNTER 2023-01-27 10:23 | Outpatient (CLI) | payer MEDICARE, SELFPAY ==
[2023-01-27 10:35] LABS: Basophils Absolute Auto 0.06 K/mm3 (0.00-0.10); Basophils Percent Auto 0.8 % (0.0-1.0); Eosinophils Absolute Auto 0.06 K/mm3 (0.02-0.50); Eosinophils Percent Auto 0.8 % (1.0-6.0); Hematocrit 42.8 % (37.0-46.0); Hemoglobin 14.1 g/dL (12.4-15.3); Immature Granulocyte Absolute 0.03 K/mm3 (0.00-0.00); Immature Granulocyte Percent A 0.4 % (0.0-0.0); Lymphocytes Absolute Auto 0.93 K/mm3 (1.10-4.50); Lymphocytes Percent Auto 12.4 % (18.0-42.0); Mean Corpuscular HGB Conc 32.9 g/dL (32.0-36.0); Mean Corpuscular Hemoglobin 32.2 pg (27.0-31.0); Mean Corpuscular Volume 97.7 fL (78.0-102.0); Mean Platelet Volume 9.9 fl (8.7-11.0); Monocytes Absolute Auto 0.62 K/mm3 (0.10-0.90); Monocytes Percent Auto 8.2 % (2.0-11.0); Neutrophils Absolute Auto 5.8 K/mm3 (1.7-7.2); Neutrophils Percent Auto 77.4 % (50.0-70.0); Platelet Count Result 203 K/mm3 (150-420); Red Blood Count 4.38 M/mm3 (4.70-6.10); Red Cell Distribution Width 13.3 % (11.6-14.4); White Blood Count 7.5 K/mm3 (4.8-10.8)
[2023-01-27 10:45] LABS: Hemoglobin A1C 5.4 % (<5.7)
[2023-01-27 11:23] LABS: Alanine Aminotransferase 25 U/L (16-63); Albumin Level 3.8 g/dL (3.4-5.0); Alkaline Phosphatase 96 U/L (46-116); Anion Gap 4 mmol/L (8-16); Aspartate Amino Transferase 15 U/L (15-37); Bilirubin,Total 0.3 mg/dL (0.00-1.00); Blood Urea Nitrogen 11 mg/dL (7-18); Calcium 9.4 mg/dL (8.5-10.1); Carbon Dioxide 33 mmol/L (21-32); Chloride 104 mmol/L (98-108); Estimated Glomerular Filt Rate > 60; Glucose 117 mg/dL (70-99); Osmolality Calculated 292 mOsm/kg (285-295); Potassium 4.4 mmol/L (3.5-5.1); Sodium 141 mmol/L (136-145); Thyroid Stimulating Hormone 0.91 uIU/mL (0.36-3.74); Total Protein 6.6 g/dL (6.4-8.2)
[2023-01-27 15:45] LABS: Cholesterol 163 mg/dL (0-200); HDL Direct 62 mg/dL (40-60); LDL Cholesterol Calculated 93 mg/dL (<130); Triglycerides 39 mg/dL (0-150)
== END 2023-01-27 10:24 | disposition home or self-care (01) ==
LOC: CHSLAB 10:26
PROVIDERS: PCP Family Medicine
DX: Z79.899 Other long term (current) drug therapy (principal)
CPT/HCPCS: 36415; 80053; 80061; 83036; 84443; 85025

== ENCOUNTER 2023-02-02 09:29 | Outpatient (CLI) | payer MEDICARE, SELFPAY ==
[2023-02-02 09:42] VITALS: BP 119/72; PULSE 78; RESP 18; TEMP 36.5; O2SAT 98
[2023-02-02 09:44] VITALS: BMI 21.5
[2023-02-02] MEDS: SODIUM CHLORIDE 0.9% IVPB (10:10)
[2023-02-02] MEDS: DURVALUMAB IVPB (10:10)
[2023-02-02] MEDS: HEPARIN SODIUM LOCK FLUSH 500 UNITS/5 ML SYRINGE IV PUSH (11:12)
[2023-02-02 11:21] VITALS: BP 111/69; PULSE 80; RESP 16; TEMP 36.5; O2SAT 98
--- NOTE | 2023-02-02 11:25 | PC.NURSE ---
Patient here for cycle 9 chemo regimen. Education given. No concerns voiced. Labs reviewed from 01/27/[address] Peñaloza. No need to draw today. IV Chemo regimen administered. See MAR. Tolerated well. Will return for Cycle 10 on 03/02/23 at 0930. Safe exit of hospital per per staff to his truck.
== END 2023-02-02 09:30 | disposition home or self-care (01) ==
LOC: CHSTREATRM 09:30
PROVIDERS: PCP Family Medicine; Visit Provider Internal Medicine Hematology & Oncology
DX: Z51.11 Encounter for antineoplastic chemotherapy (principal); C34.11 Malignant neoplasm of upper lobe, right bronchus or lung
CPT/HCPCS: 96413; J7050; J9173

== ENCOUNTER 2023-03-02 09:01 | Outpatient (CLI) | payer MEDICARE, SELFPAY ==
[2023-03-02 09:32] VITALS: BMI 21.7
[2023-03-02 09:35] LABS: Basophils Absolute Auto 0.06 K/mm3 (0.00-0.10); Basophils Percent Auto 0.9 % (0.0-1.0); Eosinophils Absolute Auto 0.11 K/mm3 (0.02-0.50); Eosinophils Percent Auto 1.7 % (1.0-6.0); Hematocrit 39.7 % (37.0-46.0); Immature Granulocyte Absolute 0.03 K/mm3 (0.00-0.00); Immature Granulocyte Percent A 0.5 % (0.0-0.0); Lymphocytes Absolute Auto 0.95 K/mm3 (1.10-4.50); Lymphocytes Percent Auto 14.5 % (18.0-42.0); Mean Corpuscular HGB Conc 32.7 g/dL (32.0-36.0); Mean Corpuscular Hemoglobin 31.9 pg (27.0-31.0); Mean Corpuscular Volume 97.3 fL (78.0-102.0); Mean Platelet Volume 9.8 fl (8.7-11.0); Monocytes Absolute Auto 0.47 K/mm3 (0.10-0.90); Monocytes Percent Auto 7.2 % (2.0-11.0); Neutrophils Absolute Auto 4.9 K/mm3 (1.7-7.2); Neutrophils Percent Auto 75.2 % (50.0-70.0); Platelet Count Result 183 K/mm3 (150-420); Red Blood Count 4.08 M/mm3 (4.70-6.10); Red Cell Distribution Width 13.2 % (11.6-14.4); White Blood Count 6.5 K/mm3 (4.8-10.8)
[2023-03-02 09:36] VITALS: BP 110/67; PULSE 72; RESP 16; TEMP 36.5; O2SAT 97
[2023-03-02 09:48] LABS: Alanine Aminotransferase 20 U/L (16-63); Albumin Level 3.4 g/dL (3.4-5.0); Alkaline Phosphatase 93 U/L (46-116); Anion Gap 2 mmol/L (8-16); Aspartate Amino Transferase 11 U/L (15-37); Bilirubin,Total 0.4 mg/dL (0.00-1.00); Blood Urea Nitrogen 8 mg/dL (7-18); Calcium 9.1 mg/dL (8.5-10.1); Carbon Dioxide 34 mmol/L (21-32); Chloride 102 mmol/L (98-108); Estimated CRCL calculation 88 ml/min; Estimated Glomerular Filt Rate > 60; Glucose 113 mg/dL (70-99); Osmolality Calculated 285 mOsm/kg (285-295); Potassium 3.8 mmol/L (3.5-5.1); Sodium 138 mmol/L (136-145); Total Protein 6.4 g/dL (6.4-8.2)
[2023-03-02] MEDS: DURVALUMAB IVPB (10:15)
[2023-03-02] MEDS: SODIUM CHLORIDE 0.9% IVPB (10:15)
--- NOTE | 2023-03-02 11:11 | PC.NURSE ---
Patient here for #10 of 12 chemo regimen. Labs drawn, reviewed, ok'd for chemo. Education given. No concerns voiced. IV Chemo regimen administered see MAR. Tolerated well. Safe exit of hospital per to truck. will return 03/30/23 [id number].
[2023-03-02] MEDS: HEPARIN SODIUM LOCK FLUSH 500 UNITS/5 ML SYRINGE IV PUSH (11:16)
== END 2023-03-02 09:02 | disposition home or self-care (01) ==
LOC: CHSLAB 09:04 → CHSTREATRM 09:04
PROVIDERS: PCP Family Medicine; Visit Provider Internal Medicine Hematology & Oncology
DX: Z51.11 Encounter for antineoplastic chemotherapy (principal); C34.11 Malignant neoplasm of upper lobe, right bronchus or lung
CPT/HCPCS: 36415; 80053; 85025; 96413; J7050; J9173

== ENCOUNTER 2023-03-30 09:04 | Outpatient (CLI) | payer MEDICARE, SELFPAY ==
[2023-03-30 09:25] LABS: Basophils Absolute Auto 0.08 K/mm3 (0.00-0.10); Basophils Percent Auto 1.1 % (0.0-1.0); Eosinophils Absolute Auto 0.16 K/mm3 (0.02-0.50); Eosinophils Percent Auto 2.2 % (1.0-6.0); Hematocrit 40.8 % (37.0-46.0); Hemoglobin 13.4 g/dL (12.4-15.3); Immature Granulocyte Absolute 0.02 K/mm3 (0.00-0.00); Immature Granulocyte Percent A 0.3 % (0.0-0.0); Lymphocytes Absolute Auto 1.31 K/mm3 (1.10-4.50); Lymphocytes Percent Auto 18.3 % (18.0-42.0); Mean Corpuscular HGB Conc 32.8 g/dL (32.0-36.0); Mean Corpuscular Hemoglobin 31.5 pg (27.0-31.0); Mean Corpuscular Volume 95.8 fL (78.0-102.0); Mean Platelet Volume 9.5 fl (8.7-11.0); Monocytes Absolute Auto 0.63 K/mm3 (0.10-0.90); Monocytes Percent Auto 8.8 % (2.0-11.0); Neutrophils Percent Auto 69.3 % (50.0-70.0); Platelet Count Result 217 K/mm3 (150-420); Red Blood Count 4.26 M/mm3 (4.70-6.10); Red Cell Distribution Width 13.2 % (11.6-14.4); White Blood Count 7.2 K/mm3 (4.8-10.8)
[2023-03-30 09:33] VITALS: BMI 21.5
[2023-03-30 09:35] VITALS: BP 101/60; PULSE 68; RESP 16; TEMP 36.6; O2SAT 97
[2023-03-30 09:48] LABS: Alanine Aminotransferase 17 U/L (16-63); Albumin Level 3.4 g/dL (3.4-5.0); Alkaline Phosphatase 103 U/L (46-116); Anion Gap 8 mmol/L (8-16); Aspartate Amino Transferase 12 U/L (15-37); Bilirubin,Total 0.3 mg/dL (0.00-1.00); Blood Urea Nitrogen 15 mg/dL (7-18); Calcium 9.6 mg/dL (8.5-10.1); Carbon Dioxide 30 mmol/L (21-32); Chloride 101 mmol/L (98-108); Estimated CRCL calculation 73 ml/min; Estimated Glomerular Filt Rate > 60; Glucose 111 mg/dL (70-99); Osmolality Calculated 289 mOsm/kg (285-295); Potassium 4.3 mmol/L (3.5-5.1); Sodium 139 mmol/L (136-145); Thyroid Stimulating Hormone 0.45 uIU/mL (0.36-3.74); Total Protein 6.7 g/dL (6.4-8.2)
[2023-03-30] MEDS: SODIUM CHLORIDE 0.9% IVPB (10:10)
[2023-03-30] MEDS: DURVALUMAB IVPB (10:10)
[2023-03-30] MEDS: HEPARIN SODIUM LOCK FLUSH 500 UNITS/5 ML SYRINGE (11:38)
--- NOTE | 2023-03-30 11:39 | PC.NURSE ---
Patient here for #11 chemo tx. Labs drawn/reviewed/ok'd. Medication administered. SEE MAR. NO concern voiced. Tolerated well. Will return 04/27/23 4430 for #12. Safe exit of hospital per self/ambulatory.
[2023-04-02 22:06] LABS: Cortisol Random 14.5 mcg/dL (***)
== END 2023-03-30 09:05 | disposition home or self-care (01) ==
LOC: CHSTREATRM 09:05
PROVIDERS: PCP Family Medicine; Visit Provider Internal Medicine Hematology & Oncology
DX: Z51.11 Encounter for antineoplastic chemotherapy (principal); C34.11 Malignant neoplasm of upper lobe, right bronchus or lung; I10 Essential (primary) hypertension
CPT/HCPCS: 36415; 36592; 80053; 82533; 84443; 85025; 96413; J7050; J9173

== ENCOUNTER 2023-04-27 09:08 | Outpatient (CLI) | payer MEDICARE, SELFPAY ==
[2023-04-27 09:25] LABS: Basophils Absolute Auto 0.06 K/mm3 (0.00-0.10); Basophils Percent Auto 0.9 % (0.0-1.0); Eosinophils Absolute Auto 0.05 K/mm3 (0.02-0.50); Eosinophils Percent Auto 0.7 % (1.0-6.0); Hematocrit 40.7 % (37.0-46.0); Hemoglobin 13.3 g/dL (12.4-15.3); Immature Granulocyte Absolute 0.03 K/mm3 (0.00-0.00); Immature Granulocyte Percent A 0.4 % (0.0-0.0); Lymphocytes Absolute Auto 0.95 K/mm3 (1.10-4.50); Lymphocytes Percent Auto 14.1 % (18.0-42.0); Mean Corpuscular HGB Conc 32.7 g/dL (32.0-36.0); Mean Corpuscular Hemoglobin 31.1 pg (27.0-31.0); Mean Corpuscular Volume 95.1 fL (78.0-102.0); Mean Platelet Volume 9.5 fl (8.7-11.0); Monocytes Absolute Auto 0.29 K/mm3 (0.10-0.90); Monocytes Percent Auto 4.3 % (2.0-11.0); Neutrophils Absolute Auto 5.4 K/mm3 (1.7-7.2); Neutrophils Percent Auto 79.6 % (50.0-70.0); Platelet Count Result 193 K/mm3 (150-420); Red Blood Count 4.28 M/mm3 (4.70-6.10); Red Cell Distribution Width 13.2 % (11.6-14.4); White Blood Count 6.8 K/mm3 (4.8-10.8)
[2023-04-27 09:30] VITALS: BP 129/59; PULSE 78; RESP 16; TEMP 36.7; O2SAT 97; BMI 21.5
[2023-04-27 09:40] LABS: Alanine Aminotransferase 19 U/L (16-63); Albumin Level 3.3 g/dL (3.4-5.0); Alkaline Phosphatase 127 U/L (46-116); Anion Gap 8 mmol/L (8-16); Aspartate Amino Transferase 13 U/L (15-37); Bilirubin,Total 0.6 mg/dL (0.00-1.00); Blood Urea Nitrogen 13 mg/dL (7-18); Calcium 9.7 mg/dL (8.5-10.1); Carbon Dioxide 33 mmol/L (21-32); Chloride 99 mmol/L (98-108); Estimated CRCL calculation 64 ml/min; Estimated Glomerular Filt Rate > 60; Glucose 176 mg/dL (70-99); Osmolality Calculated 294 mOsm/kg (285-295); Potassium 3.9 mmol/L (3.5-5.1); Sodium 140 mmol/L (136-145); Total Protein 6.8 g/dL (6.4-8.2)
[2023-04-27] MEDS: DURVALUMAB IVPB (10:00)
[2023-04-27] MEDS: SODIUM CHLORIDE 0.9% IVPB (10:00)
[2023-04-27 11:06] VITALS: BP 132/70; PULSE 72; RESP 14; TEMP 36.4; O2SAT 97
--- NOTE | 2023-04-27 11:25 | PC.NURSE ---
Patient her for #12 Imfinzi infusion. Labs drawn/reviewed/ok. No concerns. IV Imfinzi administered. SEE MAR. Had coughing spell with some left lateral muscle spasm for a few minutes, but subsided. Patient reports had these episodes from time to time. Vital signs normal. Didn't have to put on his supplemental O2 that he wears for activity and ambulation. Tolerated infusion ok. Safe exit of hospital per wc and staff. Will come Jun 08, 2023 for port flush.
[2023-04-27] MEDS: HEPARIN SODIUM LOCK FLUSH 500 UNITS/5 ML SYRINGE IV PUSH (11:29)
== END 2023-04-27 09:09 | disposition home or self-care (01) ==
LOC: CHSLAB 09:11 → CHSTREATRM 09:25
PROVIDERS: PCP Family Medicine; Visit Provider Internal Medicine Hematology & Oncology
DX: Z51.11 Encounter for antineoplastic chemotherapy (principal); C34.11 Malignant neoplasm of upper lobe, right bronchus or lung
CPT/HCPCS: 36415; 80053; 85025; 96413; J7050; J9173

== ENCOUNTER 2023-06-08 08:53 | Outpatient (CLI) | payer MEDICARE, SELFPAY ==
[2023-06-08 09:10] VITALS: BP 118/70; PULSE 88; RESP 20; TEMP 36.7; O2SAT 97; BMI 21.3
[2023-06-08] MEDS: HEPARIN SODIUM LOCK FLUSH 500 UNITS/5 ML SYRINGE IV PUSH (09:18)
--- NOTE | 2023-06-08 09:19 | PC.NURSE ---
Patient tolerated monthly port flush well. SEE Patient care/MAR notes. Safe exit of hospital. Patient will call to schedule next month's when ready. Safe exit of hospital per wc/son.
== END 2023-06-08 08:54 | disposition home or self-care (01) ==
PROVIDERS: PCP Family Medicine; Visit Provider Internal Medicine Hematology & Oncology
DX: Z45.2 Encounter for adjustment and management of vascular access device (principal)
CPT/HCPCS: 96523

== ENCOUNTER 2023-06-21 16:29 | Emergency (ER) | payer MEDICARE, SELFPAY ==
[2023-06-21] VITALS (10 sets, daily range): BP systolic 96–119; BP diastolic 55–83; PULSE 64–90; RESP 16–24; TEMP 36.3; O2SAT 97–100
--- NOTE | ~2023-06-21 | XR_ITS ---
EXAMINATION: XR chest 1V portable DATE: 06/21/2023 17:17 INDICATION: Shortness of breath. TECHNIQUE: A single frontal view of the chest was obtained on 2 radiographs. COMPARISON: Chest 2 views 12/15/2022, chest CT 12/13/2022 FINDINGS: The lungs are hyperexpanded, consistent with emphysema. Again seen is a mass in right upper lobe. No pleural effusion or pneumothorax. The heart size is normal. There is a left internal jugula r port with tip in superior vena cava. IMPRESSION: 1. Mass in right lung upper lobe again seen, consistent with primary bronchogenic carcinoma. 2. Severe emphysema. Reviewed, dictated and finalized at location E. HIATRIC TECHNICIAN ASSISTANT IMPRESSION: 1. Mass in right lung upper lobe again seen, consistent with primary bronchogen ic carcinoma. 2. Severe emphysema.
--- NOTE | 2023-06-21 16:43 | ED.SOB ---
HPI - SOB/Dyspnea General Chief Complaint: Shortness of Breath/Dyspnea Stated Complaint: sob Time Seen by Provider: 06/21/23 16:36 Source: patient Mode of arrival: ambulatory Limitations: no limitations History of Present Illness HPI Narrative: 67-year-old male, smoker with a history of LOYDA on CPAP, COPD on home oxygen, right upper lobe lung cancer status post chemo / RT/Imfinzi, subclavian DVT on Eliquis,generalized anxiety disorder, hypertension, colonic polyps presents to the ER with a 2 day history of -- worsening shortness of breath. he feels he cannot get enough air. His oxygen saturation is 98% with a respiratory rate of 24. -- dizziness -- weakness -- nonproductive cough no fever or chills. No chest pain. MD elicited complaint: shortness of breath and cough Pertinent past history: COPD and other ( Lung cancer) Onset (ago): day(s) ( 2 days) Timing: constant Severity: moderate Exacerbating factors: exertion Relieving factors: nothing Known history of: COPD Associated symptoms: cough, dizziness and lightheadedness Treatment prior to arrival: oxygen Related Data Home oxygen amount: 2 liters Allergies Allergy/AdvReac Type Severity Reaction Status Date / Time No Known Allergies Allergy Verified 06/21/23 16:31 Review of Systems Review of Systems: All systems reviewed & are unremarkable except as noted in HPI and below Constitutional: Constitutional: Reports as per HPI, Reports no additional constitutional complaints and Reports weakness Eyes: Eyes: Reports as per HPI Comments: Tearing from the left eye ENT: Reports system reviewed and no additional complaints, except as documented and Reports as per HPI Comments: dry mouth Cardiovascular: Cardiovascular: Reports as per HPI and Reports no additional cardiovascular complaints Respiratory: Respiratory: Reports as per HPI, Reports no additional respiratory complaints, Reports cough and Reports dyspnea Gastrointestinal: Gastrointestinal: Reports as per HPI and Reports no additional gastrointestinal complaints Genitourinary: Genitourinary: Reports no additional male genitourinary complaints Musculoskeletal: Musculoskeletal: Reports no additional musculoskeletal complaints and Reports as per HPI Integumentary/Breasts: Skin/Breast: Reports system reviewed and no additional complaints, except as docu and Reports as per HPI Neurologic: Reports system reviewed and no additional complaints, except as documented and Reports as per HPI Psychiatric: Psychiatric: Reports no additional psychiatric complaints, Reports as per HPI and Reports anxiety Endocrine: Endocrine: Reports no additional endocrine complaints and Reports as per HPI Hematologic/Lymphatic: Hematologic/Lymphatic: Reports no additional hematologic/lymphatic complaints and Reports as per HPI Allergic/Immunologic: Allergic/Immunologic: Reports no additional allergic/immunologic complaints and Reports as per HPI PMFSH Past Medical History Medical History Anxiety about health Cataracts, both eyes Colon polyp COPD (chronic obstructive pulmonary disease) Erectile dysfunction SAUL (generalized anxiety disorder) Hx of colonic polyp Hypertension Primary lung large cell carcinoma Tobacco abuse Surgical History Surgical History History of appendectomy Social History Social History Smoking packs per day: 1 Smoking cigarettes per day: 20.0 Years smoked: 50 Smoking pack-years: 50.00 Smoking status: Current every day smoker Tobacco type: cigarettes Second hand tobacco smoke exposure: Yes Alcohol intake: former Alcohol use details: History of Alcoholism. Quit drinking 2017. Suicide attempt 2017. Substance use: never Substance use type: does not use Last use: 40 years myesha Lack of Transportation: No [place]
--- NOTE | 2023-06-21 16:55 | ECG_ITS ---
Measurements Intervals [place] Rate: 78 P: 83 MI: 148 QRS: 2 QRSD: 104 T: 74 QT: 372 QTc: 425 Interpretive Statements SINUS RHYTHM WITH MARKED SINUS ARRHYTHMIA LEFTWARD AXIS NONSPECIFIC ST SEGMENT ABNORMALITY ABNORMAL ECG COMPARED TO ECG 12/15/2022 17:30:[address] SEGMENT DEPRESSION IS NOW SEEN Electronically Signed On 06-22-2023 18:15:03 VENDING MACHINE COLLECTOR by Vincent Bonilla M.D.
[2023-06-21 17:23] LABS: Base Excess ABG 5.1 mmol/L (0-2); Basophils Absolute Auto 0.05 K/mm3 (0.00-0.10); Basophils Percent Auto 0.9 % (0.0-1.0); Device NASAL CANNULA; Eosinophils Absolute Auto 0.13 K/mm3 (0.02-0.50); Eosinophils Percent Auto 2.3 % (1.0-6.0); HCO3 ABG 29.8 mmol/L (23-29); Hematocrit 39.5 % (37.0-46.0); Hemoglobin 13.1 g/dL (12.4-15.3); Immature Granulocyte Absolute 0.02 K/mm3 (0.00-0.00); Immature Granulocyte Percent A 0.3 % (0.0-0.0); Lymphocytes Absolute Auto 0.93 K/mm3 (1.10-4.50); Lymphocytes Percent Auto 16.2 % (18.0-42.0); Mean Corpuscular HGB Conc 33.2 g/dL (32.0-36.0); Mean Corpuscular Hemoglobin 30.9 pg (27.0-31.0); Mean Corpuscular Volume 93.2 fL (78.0-102.0); Mean Platelet Volume 9.9 fl (8.7-11.0); Modified Allen's Test Pass; Monocytes Percent Auto 5.2 % (2.0-11.0); Neutrophils Absolute Auto 4.3 K/mm3 (1.7-7.2); Neutrophils Percent Auto 75.1 % (50.0-70.0); Oxygen Content ABG 18.7 %vol (16.0-22.0); Oxygen Saturation ABG 96.3 % (95-97); Oxyhemoglobin 93.9 % (94-100); PO2 ABG 86.8 mmHg (80-90); Platelet Count Result 170 K/mm3 (150-420); Red Blood Count 4.24 M/mm3 (4.70-6.10); Red Cell Distribution Width 14.8 % (11.6-14.4); Site Drawn RIGHT RADIAL; Total Hemoglobin 14.1 g/dL (12.0-18.0); White Blood Count 5.7 K/mm3 (4.8-10.8); pH ABG 7.45 (7.35-7.45)
[2023-06-21 17:41] LABS: Alanine Aminotransferase 39 U/L (16-63); Albumin Level 3.6 g/dL (3.4-5.0); Alkaline Phosphatase 82 U/L (46-116); Aspartate Amino Transferase 49 U/L (15-37); Bilirubin Direct 0.1 mg/dL (0-0.2); Bilirubin,Total 0.4 mg/dL (0.00-1.00); Lactic Acid Reflex 0.6 mmol/L (0.4-2.0); Lipase 24 U/L (16-77); Magnesium 1.8 mg/dL (1.8-2.4); Total Protein 6.7 g/dL (6.4-8.2); Troponin I 11.4 ng/L (0.00-60.4)
[2023-06-21 17:47] LABS: Anion Gap 5 mmol/L (8-16); Blood Urea Nitrogen 10 mg/dL (7-18); Calcium 9.8 mg/dL (8.5-10.1); Carbon Dioxide 37 mmol/L (21-32); Chloride 95 mmol/L (98-108); Estimated CRCL calculation 53 ml/min; Estimated Glomerular Filt Rate > 60; Glucose 132 mg/dL (70-99); NT Pro B Type Natriuretic Pept < 11 pg/mL (0-125); Osmolality Calculated 285 mOsm/kg (285-295); Sodium 137 mmol/L (136-145)
[2023-06-21 17:49] LABS: Influenza A QL RT-PCR Negative (Negative); Influenza B QL RT-PCR Negative (Negative); RSV RNA, RT-PCR Negative (Negative); SARS-CoV-2 RNA PCR Negative (Negative)
== END 2023-06-21 18:15 | disposition home or self-care (01) ==
PROVIDERS: Emergency Provider Internal Medicine Critical Care Medicine; PCP Family Medicine
DX: J44.9 Chronic obstructive pulmonary disease, unspecified (principal); R91.8 Other nonspecific abnormal finding of lung field; I10 Essential (primary) hypertension; F17.210 Nicotine dependence, cigarettes, uncomplicated; Z20.822 Contact with and (suspected) exposure to COVID-19; Z99.81 Dependence on supplemental oxygen; Z79.01 Long term (current) use of anticoagulants
CPT/HCPCS: 36415; 36600; 71045; 80048; 80076; 82805; 83605; 83690; 83735; 83880; 84484; 85025; 87637; 93005; 99285

== ENCOUNTER 2023-07-04 09:10 | Outpatient (CLI) | payer MEDICARE, SELFPAY ==
--- NOTE | ~2023-07-04 | XR_ITS ---
XR chest 2V DATE: 07/04/2023 09:42 INDICATION: Cough, shortness of breath. History of COPD and right lung cancer TECHNIQUE: 2 views COMPARISON: 06/21/2023 portable AP chest 12/13/2022 CT chest FINDINGS: Left Port-A-Cath catheter tip is noted in the caudal aspect of the superior vena cava near the superior cavoatrial junction. There is bilateral hyperinflation consistent with COPD. There is pulmonary mass, infiltrate and/or scarring in the right apical region. Normal heart size. Aortic arch calcification. No hilar or mediastinal enlargement is detected. Subtle pulmonary arteries are moderately prominent with relatively quick tapering, which may be due t o pulmonary hypertension. No suspicious osteolytic or osteoblastic lesions are noted. IMPRESSION: COPD Right apical mass, infiltrate and/or scarring Aortic atherosclerosis Left Port-A-Cath Reviewed, dictated and finalized at location B. US PEELER
[2023-07-04 09:27] LABS: Basophils Absolute Auto 0.04 K/mm3 (0.00-0.10); Basophils Percent Auto 0.7 % (0.0-1.0); Eosinophils Absolute Auto 0.04 K/mm3 (0.02-0.50); Eosinophils Percent Auto 0.7 % (1.0-6.0); Hematocrit 41.5 % (37.0-46.0); Hemoglobin 13.4 g/dL (12.4-15.3); Immature Granulocyte Absolute 0.04 K/mm3 (0.00-0.00); Immature Granulocyte Percent A 0.7 % (0.0-0.0); Lymphocytes Percent Auto 14.4 % (18.0-42.0); Mean Corpuscular HGB Conc 32.3 g/dL (32.0-36.0); Mean Corpuscular Hemoglobin 30.9 pg (27.0-31.0); Mean Corpuscular Volume 95.8 fL (78.0-102.0); Mean Platelet Volume 9.7 fl (8.7-11.0); Monocytes Absolute Auto 0.21 K/mm3 (0.10-0.90); Monocytes Percent Auto 3.8 % (2.0-11.0); Neutrophils Absolute Auto 4.4 K/mm3 (1.7-7.2); Neutrophils Percent Auto 79.7 % (50.0-70.0); Platelet Count Result 151 K/mm3 (150-420); Red Blood Count 4.33 M/mm3 (4.70-6.10); Red Cell Distribution Width 15.2 % (11.6-14.4); White Blood Count 5.5 K/mm3 (4.8-10.8)
[2023-07-04 10:11] LABS: Alanine Aminotransferase 41 U/L (16-63); Albumin Level 3.8 g/dL (3.4-5.0); Alkaline Phosphatase 80 U/L (46-116); Anion Gap -1 mmol/L (8-16); Aspartate Amino Transferase 33 U/L (15-37); Bilirubin,Total 0.6 mg/dL (0.00-1.00); Blood Urea Nitrogen 11 mg/dL (7-18); Calcium 9.3 mg/dL (8.5-10.1); Carbon Dioxide 43 mmol/L (21-32); Chloride 98 mmol/L (98-108); Estimated Glomerular Filt Rate 54; Glucose 149 mg/dL (70-99); Osmolality Calculated 292 mOsm/kg (285-295); Potassium 3.5 mmol/L (3.5-5.1); Sodium 140 mmol/L (136-145); Total Protein 6.5 g/dL (6.4-8.2); Troponin I 6.2 ng/L (0.00-60.4)
== END 2023-07-04 09:11 | disposition home or self-care (01) ==
LOC: CHSLAB 09:12
PROVIDERS: PCP Family Medicine; Visit Provider Family Medicine
DX: C34.90 Malignant neoplasm of unspecified part of unspecified bronchus or lung (principal); R05.9 Cough, unspecified; J44.9 Chronic obstructive pulmonary disease, unspecified; R91.8 Other nonspecific abnormal finding of lung field; I70.0 Atherosclerosis of aorta; Z95.828 Presence of other vascular implants and grafts
CPT/HCPCS: 36415; 71046; 80053; 84484; 85025